=== PATIENT | male | born 1960 | race Caucasian/White ===

== ENCOUNTER 2017-02-09 14:01 | Inpatient (IN) | payer OTHER ==
[2017-02-09 17:13] VITALS: BMI 25.1
--- NOTE | 2017-02-09 17:49 | HP ---
COWS - Scale Resting Pulse: 1= [place] 81-100 Sweatin=Flushed/Facial Moisture Restless Observation: 3= Extraneous Movement Pupil Size: 2= Moderately Dilated Bone or Joint Aches: 2= Severe Diffuse Aches Runny Nose/ Eye Tearin= Runny Nose/Eyes GI Upset > 30mins: 3= Vomiting/Diarrhea Tremor Observation: 2= Slight Tremor Visible Yawning Observation: 2= >3x During Session Anxiety or Irritability: 2=Irritable/Anxious Goose Flesh Skin: 0=Smooth Skin COWS Score: 21 Admission ROS BHS - HPI Chief Complaint: I NEED HELP TO STOP USING HEROIN Allergies/Adverse Reactions: Allergies Allergy/AdvReac Type Severity Reaction Status Date / Time lithium [[place]] Allergy Severe Hives Verified 02/09/17 17:35 History of Present Illness: THIS 56 YEARS OLD MALE WITH HEROIN DEPENDENCE,WITHDRAWAL SYMPTOM,LAST DETOX 2006 [facility] BIPOLAR DISORDER HEPATITIS C TREATED S/P SURGERY OF BACK AND NECK LONGEST PERIOD OF SOBRIETY 1 YEAR Exam Limitations: No Limitations - Ebola screening Have you traveled outside of the country in the last 21 days: No Have you had contact with anyone from an Ebola affected area: No Have you been sick,other than usual withdrawal symptoms: No Do you have a fever: No - Review of Systems Constitutional: Chills, Diaphoresis, Loss of Appetite, Malaise, Night Sweats, Changes in sleep, Weakness, Unintentional Wgt. Loss EENT: reports: Tearing, Nose Congestion Respiratory: reports: Other (BRONCHITIS) Cardiac: reports: Palpitations GI: reports: Diarrhea, Nausea, Vomiting, Abdominal cramping : reports: No Symptoms Reported Musculoskeletal: reports: Back Pain, Muscle Pain, Neck Pain, Joint Stiffness Integumentary: reports: Dryness Neuro: reports: Headache, Tremors Endocrine: reports: No Symptoms Reported Hematology: reports: No Symptoms Reported Psychiatric: reports: Judgement Intact, Mood/Affect Appropiate, Orientated x3 ( BIPOLAR DISORDER), other Patient History - Patient Medical History Hx Anemia: No Hx Asthma: Yes (ON ALBUTEROL INHALER) Hx Chronic Obstructive Pulmonary Disease (COPD): No Hx Cancer: No Hx Cardiac Disorders: No Hx Congestive Heart Failure: No Hx Hypertension: No Hx Hypercholesterolemia: No Hx Pacemaker: No HX Cerebrovascular Accident: No Hx Seizures: No Hx Dementia: No Hx Diabetes: No Hx Gastrointestinal Disorders: No Hx Liver Disease: No Hx Genitourinary Disorders: No Hx Sexually Transmitted Disorders: No Hx Renal Disease (ESRD): No Hx Thyroid Disease: No Hx Human Immunodeficiency Virus (HIV): No (12/31 NEGATIVE) Hx Hepatitis C: Yes (TREATED) Hx Depression: No Hx Suicide Attempt: No Hx Bipolar Disorder: Yes (NO MEDS ) Hx Schizophrenia: No Other Medical History: NO SUICIDAL,NO HOMICIDAL - Patient Surgical History Past Surgical History: Yes Hx Neurologic Surgery: Yes (SUGERY OF NECK) Hx Orthopedic Surgery: Yes (ATHROSOPIC SURGERY FOR ROTATOR CUFF BOTH,ELBOWS) Other Surgical History: BACK SUGERY WITH FUSION - PPD History Previous Implant?: Yes Documented Results: Negative w/o proof Implanted On Prior R Admission?: No PPD to be Administered?: Yes - Smoking Cessation Smoking history: Current every day smoker Have you smoked in the past 12 months: Yes Aproximately how many cigarettes per day: 20 Cigars Per Day: 0 Hx Chewing Tobacco Use: No Initiated information on smoking cessation: Yes 'Breaking Loose' booklet given: 02/09/17 - Substance & Tx. History Hx Alcohol Use: No Hx Substance Use: Yes Substance Use Type: Heroin Hx Substance Use Treatment: Yes (2006 IN [facility]) - Substances Abused Heroin Route: Injection Frequency: Daily Amount used: 20 bags Age of first use: 50 Date of Last Use: 02/09/17 Family Disease History - Family Disease History Family History: Denies Admission Physical Exam S - Vital Signs Vital Signs: Vital Signs - 24 hr 02/09/17 17:11 Temperature 96.0 F L Pulse Rate 90 Respiratory 18 Rate Blood Pressure 142/86 - Physical General Appearance: Yes: Moderate Distress, Tremorous, Irritable, Sweating, Anxious HEENTM: Yes: Hearing grossly Normal, Normal ENT Inspection, Pharynx Normal, Nasal Congestion Respiratory: Yes: Lungs Clear Neck: Yes: Within Normal Limits, Supple, Trachea in good position, Other (SCAR RIGHT NECK) Breast: Yes: Within Normal Limits Cardiology: Yes: Within Normal Limits, Regular Rhythm, Regular Rate, S1, S2 Abdominal: Yes: Normal Bowel Sounds, Non Tender, Flat, Soft, Organomegaly Genitourinary: Yes: Within Normal Limits Back: Yes: Muscle Spasm (SCAR IN LOWER BACK), Surgical Scar Musculoskeletal: Yes: Back pain, Joint Stiffness, Muscle Pain Extremities: Yes: Tremors Neurological: Yes: business insurance agent II-XII NML intact, Fully Oriented, Alert, Motor Strength 5/5 Integumentary: Yes: Dry Lymphatic: Yes: Within Normal Limits - Diagnostic (1) Opioid dependence with withdrawal Current Visit: Yes Status: Acute (2) Bipolar disorder Current Visit: Yes Status: Acute (3) Asthma Current Visit: Yes Status: Acute (4) Low back pain Current Visit: Yes Status: Acute (5) Previous back surgery Current Visit: Yes Status: Acute (6) H/O neck surgery Current Visit: Yes Status: Acute (7) Weight loss Current Visit: Yes Status: Acute (8) Hepatitis C Current Visit: Yes Status: Acute (9) Nicotine dependence Current Visit: Yes Status: Acute Cleared for Admission S - Detox or Rehab [facility] Level of Care: Medically Managed Detox Regimen/Protocol: Methadone [facility] Breath Alcohol Content Breath Alcohol Content: 0 Urine Drug Screen - Results Drug Screen Negative: No Urine Drug Screen Results: OPI-Opiates, OXY-Oxycodone
[2017-02-09] MEDS ORDERED: guaiFENesin/D-METHORPHAN HB 10 ML UNIT-DOSE CUPS PO PRN (18:00)
[2017-02-09] MEDS ORDERED: MAGNESIUM CITRATE 300 ML BOTTLE PO PRN (18:00)
[2017-02-09] MEDS ORDERED: IBUPROFEN 400 MG TABLET (FP) PO PRN (18:00)
[2017-02-09] MEDS ORDERED: MAG HYDROX/AL HYDROX/SIMETH 30 ML UNIT-DOSE CUP PO PRN (18:00)
[2017-02-09] MEDS ORDERED: LOPERAMIDE HCL 2 MG CAPSULE PO PRN (18:00)
[2017-02-09] MEDS ORDERED: ACETAMINOPHEN 325 MG TABLET (FP) PO PRN (18:00)
[2017-02-09] MEDS ORDERED: P-EPHED 60MG/TRIPROLIDI 2.5MG TABLET PO PRN (18:00)
[2017-02-09] MEDS ORDERED: MENTHOL/PHENOL 1 EACH UD MM PRN (18:00)
[2017-02-09] MEDS ORDERED: MAGNESIUM HYDROX 2400MG/30ML ORAL SUSPENSION 30 ML CUP PO PRN (18:00)
[2017-02-09] MEDS ORDERED: diphenhydrAMINE HCL 50 MG CAPSULE PO PRN (18:00)
[2017-02-09] MEDS: diazePAM 5 MG TABLET PO PRN (18:58)
[2017-02-09] MEDS ORDERED: METHADONE HCL 10 MG TABLET (FOR DETOX USE ONLY) PO ONE ×2 (19:00→23:00)
[2017-02-09] MEDS: NICOTINE 21 MG/24 HOURS TOPICAL PATCH TD SCH ×2 (19:03→20:11)
[2017-02-09] MEDS: THIAMINE HCL 100 MG TABLET (FP) PO SCH (22:16)
[2017-02-09] MEDS: cloNIDine HCL 0.1 MG TABLET PO SCH (22:16)
[2017-02-10] MEDS ORDERED: METHADONE HCL 10 MG TABLET (FOR DETOX USE ONLY) PO ONE (10:00)
[2017-02-10] MEDS: PRENATAL VITAMINS W/ FOLIC ACID TABLET (FP) PO SCH (10:23)
[2017-02-10 10:24] LABS: MCH 29.9 pg (25.7-33.7); MCHC 33.1 g/dl (32.0-35.9); MEAN CELL VOLUME 90.3 fl (80-96); MEAN PLT VOLUME 9.6 fl (7.5-11.1); PLATELET COUNT 216 K/MM3 (134-434); RDW 16.9 % (11.9-15.9); WHITE BLOOD COUNT 15.9 K/mm3 (4.0-10.0)
[2017-02-10] MEDS: NICOTINE 21 MG/24 HOURS TOPICAL PATCH TD SCH (10:24)
[2017-02-10] MEDS: diazePAM 5 MG TABLET PO PRN ×3 (10:25→20:06)
[2017-02-10] MEDS: CYCLOBENZAPRINE HCL 10 MG TABLET (FP) PO PRN (10:25)
[2017-02-10] MEDS: cloNIDine HCL 0.1 MG TABLET PO SCH ×2 (10:27→22:08)
[2017-02-10 10:53] LABS: ALBUMIN 4.3 g/dl (3.4-5.0); ALK PHOS 102 U/L (45-117); ANION GAP 10 (8-16); BILIRUBIN,TOTAL 0.3 mg/dL (0.2-1.0); CALCIUM 9.5 mg/dL (8.5-10.1); CO2 27 mmol/L (21-32); GLUCOSE,RANDOM 148 mg/dL (74-106); SGOT/AST 21 U/L (15-37); SGPT/ALT 19 U/L (12-78); TOT PROT 7.6 g/dl (6.4-8.2)
[2017-02-10 10:53] LABS: HIV 1 & 2 AB NEGATIVE; HIV 1 AGp24 NEGATIVE
--- NOTE | 2017-02-10 11:18 | PN ---
BHS COWS - Scale Resting Pulse: 1= [place] 81-100 Sweatin=Flushed/Facial Moisture Restless Observation: 1= Difficult to Sit Still Pupil Size: 1= Pupils >than Normal Bone or Joint Aches: 2= Severe Diffuse Aches Runny Nose/ Eye Tearin= Nasal Congestion GI Upset > 30mins: 1= Stomach Cramp Tremor Observation of Outstretched Hands: 1= Tremor [place], Not Seen Yawning Observation: 0= None Anxiety or Irritability: 2=Irritable/Anxious Goose Flesh Skin: 0=Smooth Skin COWS Score: 12 BHS Progress Note (SOAP) Subjective: interrupted sleep, sweats, shakes , achy Objective: 02/10/17 11:16 Vital Signs Temperature 97.3 F L 02/10/17 11:14 Pulse Rate 72 02/10/17 11:14 Respiratory Rate 18 02/10/17 11:14 Blood Pressure 101/63 02/10/17 11:14 O2 Sat by Pulse Oximetry (%) Laboratory Tests 02/09/17 02/10/17 02/10/17 06:00 06:00 06:00 WBC 15.9 H RBC 4.60 Hgb 13.7 Hct 41.6 MCV 90.3 MCHC 33.1 RDW 16.9 H D Plt Count 216 MPV 9.6 Sodium 139 Potassium 3.7 Chloride 102 Carbon Dioxide 27 Anion Gap 10 BUN 20 H D Creatinine 1.0 Creat Clearance w eGFR > 60 Random Glucose 148 H D Calcium 9.5 Total Bilirubin 0.3 AST 21 D ALT 19 Alkaline Phosphatase 102 Total Protein 7.6 Albumin 4.3 RPR Titer HIV 1&2 Antibody Screen Negative HIV P24 Antigen Negative 02/10/17 06:00 WBC RBC Hgb Hct MCV MCHC RDW Plt Count MPV Sodium Potassium Chloride Carbon Dioxide Anion Gap BUN Creatinine Creat Clearance w eGFR Random Glucose Calcium Total Bilirubin AST ALT Alkaline Phosphatase Total Protein Albumin RPR Titer Nonreactive HIV 1&2 Antibody Screen HIV P24 Antigen pt aox3 ambulating in nad Assessment: 02/10/17 11:17 withdrawal sx's elevated wbc count 02/10/17 11:20 Plan: cont. detox increase fluids motrin prn repeat cbc/esr
[2017-02-10] MEDS: hydrOXYzine PAMOATE 25 MG CAPSULE (FP) PO PRN (14:04)
--- NOTE | 2017-02-10 14:08 | CONSULT ---
[facility] Psychiatric Consult - Data Date of interview: 02/10/17 Admission source: [facility] Identifying data: First admission to [facility] for this 56 y/o male seeking detox treatment for heroin dependence.Patient is ,a father of three,domiciled,unemployed and supported on Social Security benefits. Substance Abuse History: - Smoking Cessation. Smoking history: Current every day smoker. Have you smoked in the past 12 months: Yes. Aproximately how many cigarettes per day: 20. Cigars Per Day: 0. Hx Chewing Tobacco Use: No. Initiated information on smoking cessation: Yes. 'Breaking Loose' booklet given : 02/09/17. - Substance & Tx. History. Hx Alcohol Use: No. Hx Substance Use: Yes. Substance Use Type: Heroin. Hx Substance Use Treatment: Yes (2006 IN [facility]). - Substances Abused. Heroin. Route: Injection. Frequency: Daily. Amount used: 20 bags. Age of first use: 50. Date of Last Use: . Confirmed by patient. Medical History: History of neurosurgery (cervical and lumbar spine) and orthosurgery (arthroscopy for rotator cuffs and elbows). Psychiatric History: Patient admits to [facility] of multiple psychiatric hospitalizations.Known to [facility].Diagnosed with Bipolar Disorder.Prescribed seroquel 200 mg po bid + prozac 40 mg po daily.Non- adherent to medications for " a little over a month." Willing to resume both drugs at this time.Mr Cooper Denies history of suicide attempts. Physical/Sexual Abuse/Trauma History: Patient denies. Additional Comment: Urine Drug Screen Results: OPI-Opiates, OXY-Oxycodone.Noted. Mental Status Exam - Mental Status Exam Alert and Oriented to: Time, Place, Person Cognitive Function: Good Patient Appearance: Unkempt, Disheveled Mood: Anxious, Apprehensive, Hopeful Affect: Appropriate, Normal Range Patient Behavior: Fatigued, Appropriate, Cooperative Speech Pattern: Clear, Appropriate Voice Loudness: Normal Thought Process: Goal Oriented Thought Disorder: Not Present Hallucinations: Denies Suicidal Ideation: Denies Homicidal Ideation: Denies Insight/Judgement: Fair Sleep: Fair Appetite: Good Muscle strength/Tone: Normal Gait/Station: Normal Psychiatric Findings - Problem List ([place] 1, 2,3) (1) Opioid dependence with withdrawal Current Visit: Yes Status: Acute (2) Nicotine dependence Current Visit: Yes Status: Acute (3) Bipolar disorder Current Visit: Yes Status: Chronic (4) Asthma Current Visit: Yes Status: Chronic (5) H/O neck surgery Current Visit: Yes Status: Chronic (6) Hepatitis C Current Visit: Yes Status: Chronic (7) Low back pain Current Visit: Yes Status: Chronic (8) Previous back surgery Current Visit: Yes Status: Chronic - Initial Treatment Plan Initial Treatment Plan: Psychoeducation.Detoxification.Medications : seroquel 200 mg po hs + prozac 20 mg po daily.Side effects/benefits discussed with the patient.He is in agreement with this careplan.Observation.Pharmacy claims reviewed :noted filled scripts for seroquel (200 mg bid) and prozac (40 mg/day) @ [facility] # [id number] (Dr Eugene Poole).No scripts needed at discharge.
[2017-02-10 20:25] LABS: URINE APPEARANCE CLEAR; URINE BILIRUBIN NEGATIVE (NEGATIVE); URINE BLOOD NEGATIVE (NEGATIVE); URINE COLOR YELLOW; URINE GLUCOSE (UA) NEGATIVE (NEGATIVE); URINE KETONE NEGATIVE (NEGATIVE); URINE LEUK ESTERASE NEGATIVE (NEGATIVE); URINE NITRITE NEGATIVE (NEGATIVE); URINE PROTEIN NEGATIVE (NEGATIVE); URINE UROBILINOGEN NEGATIVE E.U./dl (0.2-1.0)
[2017-02-10] MEDS: QUEtiapine FUMARATE 200 MG TABLET PO SCH (22:08)
[2017-02-10] MEDS: THIAMINE HCL 100 MG TABLET (FP) PO SCH (22:08)
[2017-02-11] MEDS: diazePAM 5 MG TABLET PO PRN ×4 (08:43→22:32)
[2017-02-11 09:48] LABS: BASOPHIL 0.7 % (0-2.0); MCH 30.1 pg (25.7-33.7); MCHC 32.9 g/dl (32.0-35.9); MEAN CELL VOLUME 91.5 fl (80-96); MEAN PLT VOLUME 8.8 fl (7.5-11.1); NEUTROPHILS 40.9 % (42.8-82.8); PLATELET COUNT 185 K/MM3 (134-434); RDW 16.4 % (11.9-15.9); WHITE BLOOD COUNT 6.9 K/mm3 (4.0-10.0)
[2017-02-11] MEDS ORDERED: METHADONE HCL 5 MG TABLET (FOR DETOX USE ONLY) PO ONE (10:00)
[2017-02-11] MEDS: FLUoxetine HCL 20 MG CAPSULE (FP) PO SCH (10:22)
[2017-02-11] MEDS: cloNIDine HCL 0.1 MG TABLET PO SCH ×2 (10:22→22:32)
[2017-02-11] MEDS: CYCLOBENZAPRINE HCL 10 MG TABLET (FP) PO PRN ×2 (10:22→22:32)
[2017-02-11] MEDS: hydrOXYzine PAMOATE 25 MG CAPSULE (FP) PO PRN (10:22)
[2017-02-11] MEDS: NICOTINE 21 MG/24 HOURS TOPICAL PATCH TD SCH (10:22)
[2017-02-11] MEDS: PRENATAL VITAMINS W/ FOLIC ACID TABLET (FP) PO SCH (10:22)
--- NOTE | 2017-02-11 10:32 | PN ---
S COWS - Scale Resting Pulse: 1= [place] 81-100 Sweatin= Chills/Flushing Restless Observation: 3= Extraneous Movement Pupil Size: 1= Pupils >than Normal Bone or Joint Aches: 2= Severe Diffuse Aches Runny Nose/ Eye Tearin= Runny Nose/Eyes GI Upset > 30mins: 3= Vomiting/Diarrhea Tremor Observation of Outstretched Hands: 2= Slight Tremor Visible Yawning Observation: 1= 1-2x During Session Anxiety or Irritability: 2=Irritable/Anxious Goose Flesh Skin: 0=Smooth Skin COWS Score: 18 S Progress Note (SOAP) Subjective: ALERT,IRRITABLE,ANXIOUS,TREMOR,PAIN IN THE BODY AND BACK Objective: 02/11/17 10:30 Vital Signs Temperature 98.2 F 02/11/17 10:13 Pulse Rate 97 H 02/11/17 10:13 Respiratory Rate 20 02/11/17 10:13 Blood Pressure 113/71 02/11/17 10:13 O2 Sat by Pulse Oximetry (%) EKG NSR,NORMAL ECG Laboratory Last Values WBC 6.9 K/mm3 (4.0-10.0) D 02/11/17 07:00 RBC 4.49 M/mm3 (4.00-5.60) 02/11/17 07:00 Hgb 13.5 GM/dL (11.7-16.9) 02/11/17 07:00 Hct 41.1 % (35.4-49) 02/11/17 07:00 MCV 91.5 fl (80-96) 02/11/17 07:00 MCHC 32.9 g/dl (32.0-35.9) 02/11/17 07:00 RDW 16.4 % (11.9-15.9) H 02/11/17 07:00 Plt Count 185 K/MM3 (134-434) 02/11/17 07:00 MPV 8.8 fl (7.5-11.1) 02/11/17 07:00 Neutrophils % 40.9 % (42.8-82.8) L 02/11/17 07:00 Lymphocytes % 46.3 % (8-40) H 02/11/17 07:00 Monocytes % 7.1 % (3.8-10.2) 02/11/17 07:00 Eosinophils % 5.0 % (0-4.5) H 02/11/17 07:00 Basophils % 0.7 % (0-2.0) 02/11/17 07:00 Sodium 139 mmol/L (136-145) 02/10/17 06:00 Potassium 3.7 mmol/L (3.5-5.1) 02/10/17 06:00 Chloride 102 mmol/L (98-107) 02/10/17 06:00 Carbon Dioxide 27 mmol/L (21-32) 02/10/17 06:00 Anion Gap 10 (8-16) 02/10/17 06:00 BUN 20 mg/dL (7-18) H D 02/10/17 06:00 Creatinine 1.0 mg/dL (0.7-1.3) 02/10/17 06:00 Creat Clearance w eGFR > 60 (>60) 02/10/17 06:00 Random Glucose 148 mg/dL (74-106) H D 02/10/17 06:00 Calcium 9.5 mg/dL (8.5-10.1) 02/10/17 06:00 Total Bilirubin 0.3 mg/dL (0.2-1.0) 02/10/17 06:00 AST 21 U/L (15-37) D 02/10/17 06:00 ALT 19 U/L (12-78) 02/10/17 06:00 Alkaline Phosphatase 102 U/L (45-117) 02/10/17 06:00 Total Protein 7.6 g/dl (6.4-8.2) 02/10/17 06:00 Albumin 4.3 g/dl (3.4-5.0) 02/10/17 06:00 Urine Color Yellow 02/10/17 19:30 Urine Appearance Clear 02/10/17 19:30 Urine pH 6.0 (5.0-8.0) 02/10/17 19:30 Ur Specific [place] 1.021 (1.001-1.035) 02/10/17 19:30 Urine Protein Negative (NEGATIVE) 02/10/17 19:30 Urine Glucose (UA) Negative (NEGATIVE) 02/10/17 19:30 Urine Ketones Negative (NEGATIVE) 02/10/17 19:30 Urine Blood Negative (NEGATIVE) 02/10/17 19:30 Urine Nitrite Negative (NEGATIVE) 02/10/17 19:30 Urine Bilirubin Negative (NEGATIVE) 02/10/17 19:30 Urine Urobilinogen Negative E.U./dl (0.2-1.0) 02/10/17 19:30 Ur Leukocyte Esterase Negative (NEGATIVE) 02/10/17 19:30 RPR Titer Nonreactive (NONREACTIVE) 02/10/17 06:00 HIV 1&2 Antibody Screen Negative 02/09/17 06:00 HIV P24 Antigen Negative 02/09/17 06:00 Assessment: 02/11/17 10:31 WITHDRAWAL SYMPTOM Plan: CONTINUE DETOX,INITIAL GLUCOSE IS 148,BGM MONITORING
--- NOTE | 2017-02-11 11:58 | EKG ---
Test Reason : Blood Pressure : / mmHG Vent. Rate : 068 BPM Atrial Rate : 068 BPM P-R Int : 142 ms QRS Dur : 090 ms QT Int : 392 ms P-R-T Axes : 023 046 033 degrees QTc Int : 416 ms NORMAL SINUS RHYTHM NON-SPECIFIC INTRA-VENTRICULAR CONDUCTION DELAY NO PREVIOUS ECGS AVAILABLE Confirmed by FLOR MANLEY MD ([id number]) on 02/11/2017 11:57:56 AM Referred By: Confirmed By:FLOR MANLEY MD
[2017-02-11] MEDS: QUEtiapine FUMARATE 200 MG TABLET PO SCH (22:32)
[2017-02-11] MEDS: THIAMINE HCL 100 MG TABLET (FP) PO SCH (22:32)
[2017-02-12] MEDS: hydrOXYzine PAMOATE 25 MG CAPSULE (FP) PO PRN (07:03)
[2017-02-12] MEDS: diazePAM 5 MG TABLET PO PRN ×3 (07:03→15:20)
--- NOTE | 2017-02-12 09:56 | PN ---
S Progress Note (SOAP) Subjective: ALERT,IRRITABLE,ANXIOUS,INTERRUPTED SLEEP Objective: 02/12/17 10:23 Vital Signs Temperature 98.1 F 02/12/17 09:50 Pulse Rate 89 02/12/17 09:50 Respiratory Rate 20 02/12/17 09:50 Blood Pressure 122/81 02/12/17 09:50 O2 Sat by Pulse Oximetry (%) Assessment: 02/12/17 10:23 WITHDRAWAL SYMPTOM Plan: CONTINUE DETOX,DISCHARGE IN AM
[2017-02-12] MEDS ORDERED: METHADONE HCL 5 MG TABLET (FOR DETOX USE ONLY) PO ONE (10:00)
[2017-02-12] MEDS: PRENATAL VITAMINS W/ FOLIC ACID TABLET (FP) PO SCH (10:13)
[2017-02-12] MEDS: cloNIDine HCL 0.1 MG TABLET PO SCH ×2 (10:13→22:15)
[2017-02-12] MEDS: FLUoxetine HCL 20 MG CAPSULE (FP) PO SCH (10:13)
[2017-02-12] MEDS: CYCLOBENZAPRINE HCL 10 MG TABLET (FP) PO PRN (10:13)
[2017-02-12] MEDS: NICOTINE 21 MG/24 HOURS TOPICAL PATCH TD SCH (10:13)
[2017-02-12] MEDS: QUEtiapine FUMARATE 200 MG TABLET PO SCH (22:15)
[2017-02-12] MEDS: THIAMINE HCL 100 MG TABLET (FP) PO SCH (22:15)
[2017-02-13] MEDS ORDERED: METHADONE HCL 10 MG TABLET (FOR DETOX USE ONLY) PO ONE (10:00)
--- NOTE | 2017-02-13 10:31 | PN ---
S Progress Note (SOAP) Subjective: ALERT,NO COMPLAINT Objective: 02/13/17 10:29 Vital Signs Temperature 96.4 F L 02/13/17 05:46 Pulse Rate 68 02/13/17 05:46 Respiratory Rate 18 02/13/17 05:46 Blood Pressure 103/68 02/13/17 05:46 O2 Sat by Pulse Oximetry (%) Assessment: 02/13/17 10:29 PATIENT IS STABLE FOR DISCHARGE,STATE HAS TO SEE HIS CHILDREN IN AM 02/14/17, Plan: DISCHARGE TODAY,FOLLOW UP WITH AFTER CARE PROGRAM ARRANGEMENT
[2017-02-13] MEDS: FLUoxetine HCL 20 MG CAPSULE (FP) PO SCH (10:32)
[2017-02-13] MEDS: PRENATAL VITAMINS W/ FOLIC ACID TABLET (FP) PO SCH (10:32)
[2017-02-13] MEDS: cloNIDine HCL 0.1 MG TABLET PO SCH (10:32)
[2017-02-13] MEDS: hydrOXYzine PAMOATE 25 MG CAPSULE (FP) PO PRN (10:32)
--- NOTE | 2017-02-13 10:37 | DS ---
[facility] Detox Discharge Summary Admission Date: 02/09/17 Discharge Date: 02/13/17 - History Present History: Opioid Dependence Additional Comments: PATIENT IS STABLE FOR DISCHARGE TODAY,FOLLOW UP WITH [facility] ARRANGEMENT, HE HAS TO LEAVE TO SEE HIS CHILDREN IN AM, SEEN BY COUNSELOR Pertinent Past History: ASTHMA HEPATITIS C LOW BACK PAIN NICOTINE DEPENDENCE S/P BACK AND NECK SURGERY BIPOLAR DISORDER - Physical Exam Results Vital Signs: Vital Signs Temperature 96.4 F L 02/13/17 05:46 Pulse Rate 68 02/13/17 05:46 Respiratory Rate 18 02/13/17 05:46 Blood Pressure 103/68 02/13/17 05:46 O2 Sat by Pulse Oximetry (%) - Treatment Hospital Course: Detox Protocol Followed, Detoxed Safely, Responded well, Discharged Condition Good, Rehab Referral Accepted Patient has Accepted a Rehab Referral to: [facility] - Medication Discharge Medications: Ambulatory Orders Fluoxetine HCl [Prozac] 40 mg PO BID 10/03/12 Quetiapine Fumarate [Seroquel -] 200 mg PO BID 02/09/17 - Diagnosis (1) Opioid dependence with withdrawal Current Visit: Yes Status: Acute (2) Bipolar disorder Current Visit: Yes Status: Chronic (3) Asthma Current Visit: Yes Status: Chronic (4) Low back pain Current Visit: Yes Status: Chronic (5) Previous back surgery Current Visit: Yes Status: Chronic (6) H/O neck surgery Current Visit: Yes Status: Chronic (7) Weight loss Current Visit: Yes Status: Acute (8) Hepatitis C Current Visit: Yes Status: Chronic (9) Nicotine dependence Current Visit: Yes Status: Acute - AMA Did Patient Leave Against Medical Advice: No
[2017-02-13 10:39] VITALS: BP 111/71; PULSE 101; TEMP 99.1
[2017-02-14] MEDS ORDERED: METHADONE HCL 5 MG TABLET (FOR DETOX USE ONLY) PO ONE (06:00)
== END 2017-02-13 11:55 | disposition home or self-care (01) | DRG 773 ==
LOC: YASAS 14:01 → Y6N 18:21
PROVIDERS: ADMIT Internal Medicine Addiction Medicine; ATTEND Internal Medicine Addiction Medicine
PROC: HZ2ZZZZ Detoxification Services for Substance Abuse Treatment (ICD-10-PCS; principal; 2017-02-09)
DX: F11.23 Opioid dependence with withdrawal (principal); F17.210 Nicotine dependence, cigarettes, uncomplicated; F31.9 Bipolar disorder, unspecified; J45.909 Unspecified asthma, uncomplicated; M54.5 Low back pain; B18.2 Chronic viral hepatitis C; D72.829 Elevated white blood cell count, unspecified; Z87.898 Personal history of other specified conditions; Z98.890 Other specified postprocedural states
CPT/HCPCS: 36415; 80053; 81003; 85025; 85027; 86593; 87389; 93005; 93010

== ENCOUNTER 2017-06-08 09:42 | Inpatient (IN) | payer OTHER ==
[2017-06-08 10:55] VITALS: BMI 25.8
--- NOTE | 2017-06-08 12:33 | HP ---
Admission [facility] Chief Complaint: I need to go to rehab. Allergies/Adverse Reactions: Allergies Allergy/AdvReac Type Severity Reaction Status Date / Time lithium [[place]] Allergy Severe Hives Verified 06/08/17 11:36 History of Present Illness: Pt is a 56yr old male with a history of heroin dependence. Pt is on a MMTP program last dose was today with 100mg. Pending verification. Pt is now here for rehab for further tx. Exam Limitations: Physical Impairment (left fx heel. pt has a hard cast and uses crutches) - Ebola screening Have you traveled outside of the country in the last 21 days: No Have you had contact with anyone from an Ebola affected area: No Have you been sick,other than usual withdrawal symptoms: No Do you have a fever: No - Review of Systems Constitutional: No Symptoms Reported EENT: reports: No Symptoms Reported Respiratory: reports: No Symptoms reported Cardiac: reports: No Symptoms Reported GI: reports: Constipated, Nausea : reports: No Symptoms Reported Musculoskeletal: reports: Back Pain Integumentary: reports: No Symptoms Reported Neuro: reports: Headache (migraine at times) Endocrine: reports: Excessive Sweating, Flushing, Intolerance to Cold, Intolerance to Heat Hematology: reports: No Symptoms Reported Psychiatric: reports: Judgement Intact, Mood/Affect Appropiate, Orientated x3 Other Systems: Reviewed and Negative Patient History - Patient Medical History Hx Anemia: No Hx Asthma: Yes (ON ALBUTEROL INHALER) Hx Chronic Obstructive Pulmonary Disease (COPD): No Hx Cancer: No Hx Cardiac Disorders: No Hx Congestive Heart Failure: No Hx Hypertension: No Hx Hypercholesterolemia: No Hx Pacemaker: No HX Cerebrovascular Accident: No Hx Seizures: No Hx Dementia: No Hx Diabetes: No Hx Gastrointestinal Disorders: No Hx Liver Disease: No Hx Genitourinary Disorders: No Hx Sexually Transmitted Disorders: No Hx Renal Disease (ESRD): No Hx Thyroid Disease: No Hx Human Immunodeficiency Virus (HIV): No (12/31 NEGATIVE) Hx Hepatitis C: Yes (TREATED) Hx Depression: No Hx Suicide Attempt: No Hx Bipolar Disorder: Yes (NO MEDS ) Hx Schizophrenia: No - Patient Surgical History Past Surgical History: Yes Hx Neurologic Surgery: Yes (SUGERY OF NECK) Hx Orthopedic Surgery: Yes (ATHROSOPIC SURGERY FOR ROTATOR CUFF BOTH,ELBOWS) Other Surgical History: BACK SUGERY WITH FUSION/ recent heel fx three weeks - PPD History Previous Implant?: Yes Documented Results: Negative w/proof Date: 02/11/17 PPD to be Administered?: No - Reproductive History Patient is a Female of Child Bearing Age (11 -55 yrs old): No - Smoking Cessation Smoking history: Current every day smoker Have you smoked in the past 12 months: Yes Aproximately how many cigarettes per day: 20 Cigars Per Day: 0 Hx Chewing Tobacco Use: No Initiated information on smoking cessation: Yes 'Breaking Loose' booklet given: 06/08/17 - Substance & Tx. History Hx Alcohol Use: No Hx Substance Use: Yes Substance Use Type: Cocaine, Heroin Hx Substance Use Treatment: Yes (2 months ago last detox with [facility]) - Substances Abused Heroin Route: Injection Frequency: Daily Amount used: 15 bags Age of first use: 42 Date of Last Use: 05/18/17 percocet Route: Oral Frequency: Daily Amount used: 10 pills (10mg) Age of first use: 32 Date of Last Use: 06/01/17 Family Disease History - Family Disease History Family History: Denies Admission Physical Exam [facility] - Vital Signs Vital Signs: Vital Signs - 24 hr 06/08/17 10:49 Temperature 96.4 F L Pulse Rate 100 H Respiratory 20 Rate Blood Pressure 107/77 - Physical General Appearance: Yes: Appropriately Dressed, Mild Distress, Anxious HEENTM: Yes: Normal Voice Respiratory: Yes: Lungs Clear, Normal Breath Sounds, No Respiratory Distress Neck: Yes: Within Normal Limits Breast: Yes: Within Normal Limits Cardiology: Yes: Regular Rhythm, Regular Rate, S1, S2 Abdominal: Yes: Normal Bowel Sounds, Non Tender, Soft Genitourinary: Yes: Within Normal Limits Back: Yes: Normal Inspection Musculoskeletal: Yes: Back pain Extremities: Yes: Normal Capillary Refill, Normal Inspection Neurological: Yes: Fully Oriented, Alert, Normal Response Integumentary: Yes: Normal Color Lymphatic: Yes: Within Normal Limits - Diagnostic (1) Nicotine dependence Current Visit: Yes Status: Chronic Qualifiers: Nicotine product type: cigarettes Substance use status: uncomplicated Qualified Code(s): F17.210 - Nicotine dependence, cigarettes, uncomplicated (2) Asthma Current Visit: Yes Status: Chronic Qualifiers: Asthma severity: mild intermittent (3) Low back pain Current Visit: No Status: Chronic Qualifiers: Chronicity: chronic Sciatica presence: unspecified whether sciatica present (4) Methadone maintenance therapy patient Current Visit: Yes Status: Chronic Comment: last dose taken today with 100mg, pending verification Cleared for Admission [facility] - Detox or Rehab [facility] Level of Care: Medically Managed Claeared for Rehab Admission: Yes [facility] Breath Alcohol Content Breath Alcohol Content: 0 Urine Drug Screen - Results Drug Screen Negative: No Urine Drug Screen Results: MTD-Methadone
[2017-06-08] MEDS ORDERED: diphenhydrAMINE HCL 50 MG CAPSULE PO PRN (13:10)
[2017-06-08] MEDS ORDERED: LOPERAMIDE HCL 2 MG CAPSULE PO PRN (13:10)
[2017-06-08] MEDS ORDERED: IBUPROFEN 400 MG TABLET (FP) PO PRN (13:10)
[2017-06-08] MEDS ORDERED: MAGNESIUM CITRATE 300 ML BOTTLE PO PRN (13:10)
[2017-06-08] MEDS ORDERED: guaiFENesin/D-METHORPHAN HB 10 ML UNIT-DOSE CUPS PO PRN (13:10)
[2017-06-08] MEDS ORDERED: NICOTINE POLACRILEX 4 MG GUM BUC PRN (13:10)
[2017-06-08] MEDS ORDERED: MENTHOL/PHENOL 1 EACH UD MM PRN (13:10)
[2017-06-08] MEDS ORDERED: MAG HYDROX/AL HYDROX/SIMETH 30 ML UNIT-DOSE CUP PO PRN (13:10)
[2017-06-08] MEDS ORDERED: P-EPHED 60MG/TRIPROLIDI 2.5MG TABLET PO PRN (13:10)
[2017-06-08 16:19] LABS: ALBUMIN 4.4 g/dl (3.4-5.0); ANION GAP 9 (8-16); CALCIUM 9.5 mg/dL (8.5-10.1); CO2 25 mmol/L (21-32); GLUCOSE,RANDOM 84 mg/dL (74-106); MCH 30.9 pg (25.7-33.7); MCHC 33.3 g/dl (32.0-35.9); MEAN CELL VOLUME 92.6 fl (80-96); MEAN PLT VOLUME 9.4 fl (7.5-11.1); PLATELET COUNT 260 K/MM3 (134-434); RDW 14.9 % (11.9-15.9); WHITE BLOOD COUNT 8.5 K/mm3 (4.0-10.0)
[2017-06-08 16:23] LABS: ALK PHOS 156 U/L (45-117); BILIRUBIN,TOTAL 0.7 mg/dL (0.2-1.0); CREATININE 1.1 mg/dL (0.7-1.3); SGOT/AST 17 U/L (15-37); SGPT/ALT 15 U/L (12-78); TOT PROT 7.2 g/dl (6.4-8.2)
[2017-06-08 19:34] LABS: URINE APPEARANCE CLEAR; URINE BILIRUBIN NEGATIVE (NEGATIVE); URINE BLOOD NEGATIVE (NEGATIVE); URINE COLOR LTYELLOW; URINE GLUCOSE (UA) NEGATIVE (NEGATIVE); URINE KETONE NEGATIVE (NEGATIVE); URINE LEUK ESTERASE TRACE (NEGATIVE); URINE NITRITE NEGATIVE (NEGATIVE); URINE PROTEIN NEGATIVE (NEGATIVE); URINE UROBILINOGEN NEGATIVE mg/dL (0.2-1.0)
[2017-06-08] MEDS: THIAMINE HCL 100 MG TABLET (FP) PO SCH (21:48)
[2017-06-08 21:57] LABS: URINE BACTERIA RARE /hpf (NONE SEEN); URINE MUCUS RARE; URINE RBC 1 /hpf (0-3); URINE WBC 5 /hpf (3-5)
[2017-06-09] MEDS ORDERED: METHADONE HCL 10 MG TABLET PO ONE (08:09)
[2017-06-09] MEDS ORDERED: METHADONE 80 MG, METHADONE 20 MG PO ONE (08:30)
[2017-06-09] MEDS ORDERED: METHADONE HCL 40 MG DISPERSABLE TABLET ONE (08:54)
[2017-06-09] MEDS ORDERED: METHADONE HCL 10 MG TABLET ONE (08:54)
[2017-06-09] MEDS: ACETAMINOPHEN 325 MG TABLET (FP) PO PRN ×2 (08:58→14:24)
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
[2017-06-09] MEDS: NICOTINE 21 MG/24 HOURS TOPICAL PATCH TD SCH (10:12)
[2017-06-09] MEDS: PRENATAL VITAMINS W/ FOLIC ACID TABLET (FP) PO SCH (10:13)
[2017-06-09 10:37] LABS: HIV 1 & 2 AB NEGATIVE; HIV 1 AGp24 NEGATIVE
[2017-06-09] MEDS ORDERED: QUEtiapine FUMARATE 200 MG TABLET PO SCH (11:30)
--- NOTE | 2017-06-09 12:01 | EKG ---
Test Reason : Blood Pressure : / mmHG Vent. Rate : 074 BPM Atrial Rate : 074 BPM P-R Int : 154 ms QRS Dur : 088 ms QT Int : 416 ms P-R-T Axes : 039 052 045 degrees QTc Int : 461 ms NORMAL SINUS RHYTHM WITH SINUS ARRHYTHMIA NORMAL ECG WHEN COMPARED WITH ECG OF 09-FEB-2017 18:03, NO SIGNIFICANT CHANGE WAS FOUND Confirmed by RODRIGO FLORES MD ([id number]) on 06/09/2017 12:00:42 PM Referred By: Confirmed By:RODRIGO FLORES MD
[2017-06-09] MEDS: FLUoxetine HCL 20 MG CAPSULE (FP) PO SCH (12:41)
[2017-06-09] MEDS: ALBUTEROL SO4 6.7 GM HFA INHALER IH PRN (12:42)
[2017-06-09] MEDS: QUEtiapine FUMARATE 100 MG TABLET (FP) PO SCH (21:12)
[2017-06-09] MEDS: THIAMINE HCL 100 MG TABLET (FP) PO SCH (21:12)
[2017-06-10] MEDS ORDERED: METHADONE HCL 10 MG TABLET ONE (04:20)
[2017-06-10] MEDS ORDERED: METHADONE HCL 40 MG DISPERSABLE TABLET ONE (04:20)
[2017-06-10] MEDS ORDERED: METHADONE HCL 40 MG DISPERSABLE TABLET PO SCH (06:00)
[2017-06-10] MEDS: METHADONE 80 MG, METHADONE 20 MG PO SCH (06:09)
[2017-06-10] MEDS: FLUoxetine HCL 20 MG CAPSULE (FP) PO SCH (10:08)
[2017-06-10] MEDS: PRENATAL VITAMINS W/ FOLIC ACID TABLET (FP) PO SCH (10:08)
[2017-06-10] MEDS: QUEtiapine FUMARATE 100 MG TABLET (FP) PO SCH ×2 (10:08→21:58)
[2017-06-10] MEDS: NICOTINE 21 MG/24 HOURS TOPICAL PATCH TD SCH (10:10)
[2017-06-10] MEDS: ALBUTEROL SO4 6.7 GM HFA INHALER IH PRN ×2 (10:11→21:58)
[2017-06-10] MEDS: THIAMINE HCL 100 MG TABLET (FP) PO SCH (21:58)
[2017-06-11] MEDS ORDERED: METHADONE HCL 10 MG TABLET ONE (05:34)
[2017-06-11] MEDS ORDERED: METHADONE HCL 40 MG DISPERSABLE TABLET ONE (05:34)
[2017-06-11] MEDS: METHADONE 80 MG, METHADONE 20 MG PO SCH (06:17)
[2017-06-11] MEDS: ALBUTEROL SO4 6.7 GM HFA INHALER IH PRN (09:37)
[2017-06-11] MEDS: NICOTINE 21 MG/24 HOURS TOPICAL PATCH TD SCH (09:38)
[2017-06-11] MEDS: QUEtiapine FUMARATE 100 MG TABLET (FP) PO SCH ×2 (09:38→21:03)
[2017-06-11] MEDS: FLUoxetine HCL 20 MG CAPSULE (FP) PO SCH (09:38)
[2017-06-11] MEDS: PRENATAL VITAMINS W/ FOLIC ACID TABLET (FP) PO SCH (09:38)
[2017-06-11] MEDS: THIAMINE HCL 100 MG TABLET (FP) PO SCH (21:03)
[2017-06-12] MEDS ORDERED: METHADONE HCL 40 MG DISPERSABLE TABLET ONE (05:15)
[2017-06-12] MEDS ORDERED: METHADONE HCL 10 MG TABLET ONE (05:15)
[2017-06-12] MEDS: METHADONE 80 MG, METHADONE 20 MG PO SCH (06:01)
[2017-06-12] MEDS: NICOTINE 21 MG/24 HOURS TOPICAL PATCH TD SCH (09:31)
[2017-06-12] MEDS: QUEtiapine FUMARATE 100 MG TABLET (FP) PO SCH ×2 (09:31→21:45)
[2017-06-12] MEDS: FLUoxetine HCL 20 MG CAPSULE (FP) PO SCH (09:31)
[2017-06-12] MEDS: PRENATAL VITAMINS W/ FOLIC ACID TABLET (FP) PO SCH (09:31)
[2017-06-12] MEDS: THIAMINE HCL 100 MG TABLET (FP) PO SCH (21:45)
[2017-06-12] MEDS ORDERED: PT OWN MED DRAWER 7, Y5N ONE (21:48)
[2017-06-12] MEDS: ALBUTEROL SO4 6.7 GM HFA INHALER IH PRN (21:49)
[2017-06-13] MEDS ORDERED: METHADONE HCL 10 MG TABLET ONE (04:00)
[2017-06-13] MEDS ORDERED: METHADONE HCL 40 MG DISPERSABLE TABLET ONE (04:00)
[2017-06-13] MEDS: METHADONE 80 MG, METHADONE 20 MG PO SCH (06:39)
[2017-06-13] MEDS: NICOTINE 21 MG/24 HOURS TOPICAL PATCH TD SCH (09:29)
[2017-06-13] MEDS: FLUoxetine HCL 20 MG CAPSULE (FP) PO SCH (09:30)
[2017-06-13] MEDS: PRENATAL VITAMINS W/ FOLIC ACID TABLET (FP) PO SCH (09:30)
[2017-06-13] MEDS: QUEtiapine FUMARATE 100 MG TABLET (FP) PO SCH ×2 (09:30→21:10)
[2017-06-13] MEDS: ALBUTEROL SO4 6.7 GM HFA INHALER IH PRN (09:31)
[2017-06-13] MEDS: THIAMINE HCL 100 MG TABLET (FP) PO SCH (21:10)
[2017-06-14] MEDS ORDERED: METHADONE HCL 40 MG DISPERSABLE TABLET ONE (04:39)
[2017-06-14] MEDS ORDERED: METHADONE HCL 10 MG TABLET ONE (04:39)
[2017-06-14] MEDS: METHADONE 80 MG, METHADONE 20 MG PO SCH (06:19)
[2017-06-14] MEDS: PRENATAL VITAMINS W/ FOLIC ACID TABLET (FP) PO SCH (09:44)
[2017-06-14] MEDS: QUEtiapine FUMARATE 100 MG TABLET (FP) PO SCH ×2 (09:44→21:16)
[2017-06-14] MEDS: FLUoxetine HCL 20 MG CAPSULE (FP) PO SCH (09:44)
[2017-06-14] MEDS: NICOTINE 21 MG/24 HOURS TOPICAL PATCH TD SCH (09:45)
[2017-06-14] MEDS: THIAMINE HCL 100 MG TABLET (FP) PO SCH (21:16)
[2017-06-14] MEDS: ALBUTEROL SO4 6.7 GM HFA INHALER IH PRN (21:17)
[2017-06-15] MEDS ORDERED: METHADONE HCL 10 MG TABLET ONE (04:05)
[2017-06-15] MEDS ORDERED: METHADONE HCL 40 MG DISPERSABLE TABLET ONE (04:05)
[2017-06-15] MEDS: METHADONE 80 MG, METHADONE 20 MG PO SCH (06:12)
[2017-06-15] MEDS: FLUoxetine HCL 20 MG CAPSULE (FP) PO SCH (09:30)
[2017-06-15] MEDS: QUEtiapine FUMARATE 100 MG TABLET (FP) PO SCH ×2 (09:30→21:00)
[2017-06-15] MEDS: PRENATAL VITAMINS W/ FOLIC ACID TABLET (FP) PO SCH (09:30)
[2017-06-15] MEDS: NICOTINE 21 MG/24 HOURS TOPICAL PATCH TD SCH (09:30)
[2017-06-15] MEDS ORDERED: PT OWN MED DRAWER 7, Y5N ONE (09:32)
[2017-06-15] MEDS: ALBUTEROL SO4 6.7 GM HFA INHALER IH PRN ×2 (09:32→21:01)
[2017-06-15] MEDS: MAGNESIUM HYDROX 2400MG/30ML ORAL SUSPENSION 30 ML CUP PO PRN (11:38)
[2017-06-15] MEDS: THIAMINE HCL 100 MG TABLET (FP) PO SCH (21:00)
[2017-06-16] MEDS ORDERED: METHADONE HCL 10 MG TABLET ONE (05:01)
[2017-06-16] MEDS ORDERED: METHADONE HCL 40 MG DISPERSABLE TABLET ONE (05:01)
[2017-06-16] MEDS: METHADONE 80 MG, METHADONE 20 MG PO SCH (06:22)
[2017-06-16] MEDS: NICOTINE 21 MG/24 HOURS TOPICAL PATCH TD SCH (09:31)
[2017-06-16] MEDS: FLUoxetine HCL 20 MG CAPSULE (FP) PO SCH (09:31)
[2017-06-16] MEDS: QUEtiapine FUMARATE 100 MG TABLET (FP) PO SCH ×2 (09:31→21:15)
[2017-06-16] MEDS: PRENATAL VITAMINS W/ FOLIC ACID TABLET (FP) PO SCH (09:33)
[2017-06-16] MEDS: ACETAMINOPHEN 325 MG TABLET (FP) PO PRN (09:33)
[2017-06-16] MEDS: MAGNESIUM HYDROX 2400MG/30ML ORAL SUSPENSION 30 ML CUP PO PRN (09:34)
[2017-06-16] MEDS: ALBUTEROL SO4 6.7 GM HFA INHALER IH PRN (21:15)
[2017-06-16] MEDS: THIAMINE HCL 100 MG TABLET (FP) PO SCH (21:15)
[2017-06-17] MEDS ORDERED: METHADONE HCL 40 MG DISPERSABLE TABLET ONE (04:33)
[2017-06-17] MEDS ORDERED: METHADONE HCL 10 MG TABLET ONE (04:33)
[2017-06-17] MEDS: METHADONE 80 MG, METHADONE 20 MG PO SCH (05:04)
[2017-06-17] MEDS: PRENATAL VITAMINS W/ FOLIC ACID TABLET (FP) PO SCH (09:27)
[2017-06-17] MEDS: FLUoxetine HCL 20 MG CAPSULE (FP) PO SCH (09:28)
[2017-06-17] MEDS: QUEtiapine FUMARATE 100 MG TABLET (FP) PO SCH ×2 (09:28→21:03)
[2017-06-17] MEDS: NICOTINE 21 MG/24 HOURS TOPICAL PATCH TD SCH (09:28)
[2017-06-17] MEDS: ALBUTEROL SO4 6.7 GM HFA INHALER IH PRN ×2 (09:29→21:03)
[2017-06-17] MEDS: THIAMINE HCL 100 MG TABLET (FP) PO SCH (21:03)
[2017-06-18] MEDS ORDERED: METHADONE HCL 10 MG TABLET ONE (03:50)
[2017-06-18] MEDS ORDERED: METHADONE HCL 40 MG DISPERSABLE TABLET ONE (03:50)
[2017-06-18] MEDS: METHADONE 80 MG, METHADONE 20 MG PO SCH (06:03)
[2017-06-18] MEDS: ALBUTEROL SO4 6.7 GM HFA INHALER IH PRN ×2 (06:03→21:14)
[2017-06-18] MEDS: FLUoxetine HCL 20 MG CAPSULE (FP) PO SCH (09:37)
[2017-06-18] MEDS: PRENATAL VITAMINS W/ FOLIC ACID TABLET (FP) PO SCH (09:37)
[2017-06-18] MEDS: MAGNESIUM HYDROX 2400MG/30ML ORAL SUSPENSION 30 ML CUP PO PRN (09:37)
[2017-06-18] MEDS: QUEtiapine FUMARATE 100 MG TABLET (FP) PO SCH ×2 (09:37→21:13)
[2017-06-18] MEDS: NICOTINE 21 MG/24 HOURS TOPICAL PATCH TD SCH (10:27)
[2017-06-18] MEDS: THIAMINE HCL 100 MG TABLET (FP) PO SCH (21:13)
[2017-06-19] MEDS ORDERED: METHADONE HCL 40 MG DISPERSABLE TABLET ONE (03:50)
[2017-06-19] MEDS ORDERED: METHADONE HCL 10 MG TABLET ONE (03:50)
[2017-06-19] MEDS: METHADONE 80 MG, METHADONE 20 MG PO SCH (05:59)
[2017-06-19] MEDS: FLUoxetine HCL 20 MG CAPSULE (FP) PO SCH (09:25)
[2017-06-19] MEDS: QUEtiapine FUMARATE 100 MG TABLET (FP) PO SCH ×2 (09:26→21:03)
[2017-06-19] MEDS: PRENATAL VITAMINS W/ FOLIC ACID TABLET (FP) PO SCH (09:26)
[2017-06-19] MEDS: NICOTINE 21 MG/24 HOURS TOPICAL PATCH TD SCH (09:26)
[2017-06-19] MEDS: ALBUTEROL SO4 6.7 GM HFA INHALER IH PRN ×2 (09:28→21:04)
[2017-06-19] MEDS: THIAMINE HCL 100 MG TABLET (FP) PO SCH (21:03)
[2017-06-19] MEDS: MAGNESIUM HYDROX 2400MG/30ML ORAL SUSPENSION 30 ML CUP PO PRN (21:03)
[2017-06-20] MEDS ORDERED: METHADONE HCL 10 MG TABLET ONE (05:12)
[2017-06-20] MEDS ORDERED: METHADONE HCL 40 MG DISPERSABLE TABLET ONE (05:12)
[2017-06-20] MEDS: METHADONE 80 MG, METHADONE 20 MG PO SCH (05:54)
[2017-06-20] MEDS: QUEtiapine FUMARATE 100 MG TABLET (FP) PO SCH ×2 (09:31→21:02)
[2017-06-20] MEDS: NICOTINE 21 MG/24 HOURS TOPICAL PATCH TD SCH (09:31)
[2017-06-20] MEDS: FLUoxetine HCL 20 MG CAPSULE (FP) PO SCH (09:31)
[2017-06-20] MEDS: PRENATAL VITAMINS W/ FOLIC ACID TABLET (FP) PO SCH (09:31)
[2017-06-20] MEDS: ALBUTEROL SO4 6.7 GM HFA INHALER IH PRN ×2 (09:31→21:03)
[2017-06-20] MEDS: THIAMINE HCL 100 MG TABLET (FP) PO SCH (21:02)
[2017-06-21] MEDS ORDERED: METHADONE HCL 40 MG DISPERSABLE TABLET ONE (03:52)
[2017-06-21] MEDS ORDERED: METHADONE HCL 10 MG TABLET ONE (03:52)
[2017-06-21] MEDS: METHADONE 80 MG, METHADONE 20 MG PO SCH (06:04)
[2017-06-21] MEDS: ALBUTEROL SO4 6.7 GM HFA INHALER IH PRN ×2 (09:30→21:03)
[2017-06-21] MEDS: FLUoxetine HCL 20 MG CAPSULE (FP) PO SCH (09:31)
[2017-06-21] MEDS: MAGNESIUM HYDROX 2400MG/30ML ORAL SUSPENSION 30 ML CUP PO PRN (09:31)
[2017-06-21] MEDS: PRENATAL VITAMINS W/ FOLIC ACID TABLET (FP) PO SCH (09:31)
[2017-06-21] MEDS: NICOTINE 21 MG/24 HOURS TOPICAL PATCH TD SCH (09:32)
[2017-06-21] MEDS: QUEtiapine FUMARATE 100 MG TABLET (FP) PO SCH ×2 (09:32→21:03)
[2017-06-21] MEDS: THIAMINE HCL 100 MG TABLET (FP) PO SCH (21:03)
[2017-06-22] MEDS ORDERED: METHADONE HCL 10 MG TABLET ONE (05:55)
[2017-06-22] MEDS ORDERED: METHADONE HCL 40 MG DISPERSABLE TABLET ONE (05:56)
[2017-06-22] MEDS: METHADONE 80 MG, METHADONE 20 MG PO SCH (06:07)
[2017-06-22] MEDS: PRENATAL VITAMINS W/ FOLIC ACID TABLET (FP) PO SCH (09:48)
[2017-06-22] MEDS: FLUoxetine HCL 20 MG CAPSULE (FP) PO SCH (09:48)
[2017-06-22] MEDS: QUEtiapine FUMARATE 100 MG TABLET (FP) PO SCH ×2 (09:48→21:07)
[2017-06-22] MEDS: NICOTINE 21 MG/24 HOURS TOPICAL PATCH TD SCH (09:49)
[2017-06-22] MEDS: MAGNESIUM HYDROX 2400MG/30ML ORAL SUSPENSION 30 ML CUP PO PRN (09:50)
[2017-06-22] MEDS: ALBUTEROL SO4 6.7 GM HFA INHALER IH PRN ×2 (09:51→21:07)
[2017-06-22] MEDS: hydrOXYzine PAMOATE 50 MG CAPSULE (FP) PO PRN (15:59)
[2017-06-22] MEDS: THIAMINE HCL 100 MG TABLET (FP) PO SCH (21:07)
[2017-06-23] MEDS ORDERED: METHADONE HCL 40 MG DISPERSABLE TABLET ONE (03:55)
[2017-06-23] MEDS ORDERED: METHADONE HCL 10 MG TABLET ONE (03:55)
[2017-06-23] MEDS: METHADONE 80 MG, METHADONE 20 MG PO SCH (05:58)
[2017-06-23 06:40] VITALS: TEMP 98.3
[2017-06-23] MEDS: FLUoxetine HCL 20 MG CAPSULE (FP) PO SCH (09:46)
[2017-06-23] MEDS: QUEtiapine FUMARATE 100 MG TABLET (FP) PO SCH ×2 (09:46→21:14)
[2017-06-23] MEDS: NICOTINE 21 MG/24 HOURS TOPICAL PATCH TD SCH (09:46)
[2017-06-23] MEDS: PRENATAL VITAMINS W/ FOLIC ACID TABLET (FP) PO SCH (09:46)
[2017-06-23] MEDS: hydrOXYzine PAMOATE 50 MG CAPSULE (FP) PO PRN (09:46)
[2017-06-23] MEDS: MAGNESIUM HYDROX 2400MG/30ML ORAL SUSPENSION 30 ML CUP PO PRN (09:47)
--- NOTE | 2017-06-23 11:48 | PN ---
Psychiatric Progress Note Vital Signs: Vital Signs Period Temp Pulse Resp BP Sys/Sandoval Pulse Ox Last 24 Hr 98.3 F 100 18-20 106/74 Date of Session: 06/23/17 Chief Complaint:: Discharge Note HPI: Patient addressing Opoid Dependence comorbid with Opoid Dependence, Nicotine Dependence and Bipolar Disorder ROS: Asthma, Hep C, LBP were medically managed Current Medications: Active Medications Generic Name Dose Route Start Last Admin Trade Name Freq PRN Reason Stop Dose Admin Acetaminophen 650 mg 06/08/17 13:10 06/16/17 09:33 Tylenol - PO 650 mg Q4H PRN Administration PAIN Al Hydroxide/Mg Hydroxide 30 ml 06/08/17 13:10 Mylanta Oral Suspension - PO Q6H PRN DYSPEPSIA Albuterol Sulfate 2 puff 06/08/17 13:32 06/22/17 21:07 Ventolin Hfa Inhaler - IH 2 puff Q4H PRN Administration SHORT OF BREATH/WHEEZING Diphenhydramine HCl 50 mg 06/08/17 13:10 06/08/17 21:48 Benadryl - PO 50 mg HSMR1 PRN Administration INSOMNIA Eucalyptus/Menthol/Phenol/Sorbitol 1 each 06/08/17 13:10 Cepastat Lozenge - MM Q4H PRN SORE THROAT Fluoxetine HCl 40 mg 06/09/17 11:30 06/23/17 09:46 Prozac - PO 40 mg DAILY JENNIFER Administration Guaifenesin 10 ml 06/08/17 13:10 Robitussin Dm - PO Q6H PRN COUGH Hydroxyzine Pamoate 50 mg 06/08/17 13:10 06/23/17 09:46 Vistaril - PO 50 mg Q4H PRN Administration AGITATION Ibuprofen 400 mg 06/08/17 13:10 Motrin - PO Q6H PRN SEVERE PAIN Loperamide HCl 4 mg 06/08/17 13:10 Imodium - PO Q6H PRN DIARRHEA Magnesium Citrate 300 ml 06/08/17 13:10 Citroma - PO Q48H PRN CONSTIPATION Magnesium Hydroxide 30 ml 06/08/17 13:10 06/23/17 09:47 Milk Of Magnesia - PO 30 ml DAILY PRN Administration CONSTIPATION Methadone HCl 80 mg/ Methadone 100 mg 06/22/17 06:00 06/23/17 05:58 HCl 20 mg PO 06/28/17 05:59 100 mg DAILY@0600 JENNIFER Administration Nicotine 21 mg 06/09/17 10:00 06/23/17 09:46 Nicoderm Patch - TD 21 mg DAILY JENNIFER Administration Nicotine Polacrilex 4 mg 06/08/17 13:10 Nicorette Gum - BUC Q2H PRN NICOTINE REPLACEMENT RX Multivit/Folic Acid/Iron 1 tab 06/09/17 10:00 06/23/17 09:46 Vitamins (Sjr) - PO 1 tab DAILY JENNIFER Administration Pseudoephedrine/Triprolidine 1 combo 06/08/17 13:10 Actifed - PO TID PRN NASAL CONGESTION Quetiapine Fumarate 100 mg 06/09/17 22:00 06/23/17 09:46 Seroquel - PO 100 mg BID JENNIFER Administration Thiamine HCl 100 mg 06/08/17 22:00 06/22/17 21:07 Vitamin B1 - PO 100 mg HS JENNIFER Administration Current Side Effect: No Lab tests ordered: Yes Lab tests reviewed: Yes Provider note:: Patient will complete this program on 06/24/17. He has met his treatment goals and will continue to address his issues in outpatient program @ [facility]. 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 He responded well to Prozac 40 mg po daily & Seroquel 100 mg po BID. Scripts for 30 days supply of these medications will be electronically transmitted to [facility] at [address] [place] [address]. He is stable for discharge on 06/24/17 Total face to face time:: 35 Mental Status Exam - Mental Status Exam Alert and Oriented to: Time, Place, Person Cognitive Function: Fair Patient Appearance: Well Groomed Mood: Hopeful, Euthymic Affect: Appropriate Patient Behavior: Cooperative Speech Pattern: Clear Voice Loudness: Normal Thought Process: Intact, Goal Oriented Thought Disorder: Not Present Hallucinations: Denies Suicidal Ideation: Denies Homicidal Ideation: Denies Insight/Judgement: Fair Sleep: Fair Appetite: Good Muscle strength/Tone: Normal Gait/Station: Normal Psychiatric Treatment Plan - Problem List (1) Opioid dependence Current Visit: Yes (2) Opioid dependence on agonist therapy Current Visit: Yes (3) Nicotine dependence Current Visit: Yes Qualifiers: Nicotine product type: cigarettes Substance use status: uncomplicated Qualified Code(s): F17.210 - Nicotine dependence, cigarettes, uncomplicated (4) Bipolar disorder Current Visit: No (5) Asthma Current Visit: Yes Qualifiers: Asthma severity: mild intermittent (6) Hepatitis C Current Visit: No (7) Low back pain Current Visit: No Qualifiers: Chronicity: chronic Sciatica presence: unspecified whether sciatica present (8) H/O neck surgery Current Visit: No (9) Previous back surgery Current Visit: No Initial treatment plan: Patient will be discharged tomorrow and referred to [facility] for [facility] treatment
[2017-06-23] MEDS: DOCUSATE SODIUM 100 MG CAPSULE (FP) PO SCH ×2 (14:44→21:14)
[2017-06-23] MEDS: THIAMINE HCL 100 MG TABLET (FP) PO SCH (21:14)
[2017-06-24] MEDS ORDERED: METHADONE HCL 40 MG DISPERSABLE TABLET ONE (04:13)
[2017-06-24] MEDS ORDERED: METHADONE HCL 10 MG TABLET ONE (04:13)
[2017-06-24] MEDS: METHADONE 80 MG, METHADONE 20 MG PO SCH (06:29)
[2017-06-24] MEDS: DOCUSATE SODIUM 100 MG CAPSULE (FP) PO SCH (06:29)
[2017-06-24 07:24] VITALS: BP 124/86; PULSE 84
[2017-06-24] MEDS: FLUoxetine HCL 20 MG CAPSULE (FP) PO SCH (09:58)
[2017-06-24] MEDS: QUEtiapine FUMARATE 100 MG TABLET (FP) PO SCH (09:58)
[2017-06-24] MEDS: PRENATAL VITAMINS W/ FOLIC ACID TABLET (FP) PO SCH (09:58)
[2017-06-24] MEDS: NICOTINE 21 MG/24 HOURS TOPICAL PATCH TD SCH (09:59)
[2017-06-24] MEDS: ALBUTEROL SO4 6.7 GM HFA INHALER IH PRN (09:59)
== END 2017-06-24 10:21 | disposition home or self-care (01) | DRG 772 ==
LOC: YASAS 09:42 → Y3W 13:46
PROVIDERS: ADMIT Psychiatry & Neurology Psychiatry; ATTEND Psychiatry & Neurology Psychiatry
PROC: HZ42ZZZ Group Counseling for Substance Abuse Treatment, Cognitive-Behavioral (ICD-10-PCS; principal; 2017-06-08)
DX: F11.20 Opioid dependence, uncomplicated (principal); F17.210 Nicotine dependence, cigarettes, uncomplicated; F31.9 Bipolar disorder, unspecified; J45.909 Unspecified asthma, uncomplicated; M45.4 Ankylosing spondylitis of thoracic region; G89.29 Other chronic pain; Z98.890 Other specified postprocedural states; B18.2 Chronic viral hepatitis C; Z88.8 Allergy status to other drugs, medicaments and biological substances
CPT/HCPCS: 36415; 80053; 81003; 81015; 85027; 86593; 87389; 93005; 93010

== ENCOUNTER 2017-12-15 08:39 | Day surgery (SDC) | payer OTHER ==
[2017-12-14 15:08] VITALS: BMI 28.7
[2017-12-15 09:12] VITALS: TEMP 97.9
[2017-12-15] MEDS ORDERED: PROPOFOL 20 ML ONE ×2 (10:14)
--- NOTE | 2017-12-15 11:13 | PROC ---
Endoscopy Procedure Endoscopy procedure completed. Please see scanned procedure report.
[2017-12-15 11:59] VITALS: BP 107/69; PULSE 89
== END 2017-12-15 12:18 | disposition home or self-care (01) ==
LOC: JASU-ENDO 08:39
PROVIDERS: ATTEND Internal Medicine Gastroenterology
PROC: 0DJD8ZZ Inspection of Lower Intestinal Tract, Via Natural or Artificial Opening Endoscopic (ICD-10-PCS; principal; 2017-12-15 09:45)
DX: Z12.11 Encounter for screening for malignant neoplasm of colon (principal)

== ENCOUNTER 2019-11-21 15:50 | Emergency (ER) | payer OTHER ==
[2019-11-21 16:08] VITALS: BP 130/78; PULSE 109; TEMP 98.3; BMI 28.7
--- NOTE | 2019-11-21 16:25 | PDOC ---
History of Present Illness <Car Renee - Last Filed: 11/21/19 17:26> <Rhonda Turk - Last Filed: 11/23/19 01:24> - General Chief Complaint: Cold Symptoms Stated Complaint: COUGH Time Seen by Provider: 11/21/19 16:14 Past History <Car Renee - Last Filed: 11/21/19 17:26> - Past Medical History Anemia: No Asthma: Yes (NO RECENT ATTACK) Cancer: No Cardiac Disorders: Yes (HEART MURMUR) CVA: No COPD: No CHF: No Dementia: No Diabetes: No GI Disorders: No Disorders: No HTN: No Hypercholesterolemia: No Kidney Stones: No Liver Disease: No Seizures: No Thyroid Disease: No - Surgical History Neurologic Surgery: Yes (SUGERY OF NECK) Orthopedic Surgery: Yes (ATHROSOPIC SURGERY FOR ROTATOR CUFF BOTH,ELBOWS) - Reproductive History Testicular Surgery: No - Immunization History Immunization Up to Date: No - Psycho Social/Smoking Cessation Hx Smoking Status: Yes Smoking History: Current every day smoker Have you smoked in the past 12 months: Yes Number of Cigarettes Smoked Daily: 10 Cigars Per Day: 0 Information on smoking cessation initiated: Yes 'Breaking Loose' booklet given: 12/15/17 Hx Alcohol Use: No (I QUIT) Drug/Substance Use Hx: No (I QUIT) Substance Use Type: Heroin, Opiates Hx Substance Use Treatment: Yes (Attends [facility]; one previous detox @ [facility]) <Rhonda Turk - Last Filed: 11/23/19 01:24> - Past Medical History Allergies/Adverse Reactions: Allergies Allergy/AdvReac Type Severity Reaction Status Date / Time lithium [[place]] Allergy Severe Hives Verified 11/21/19 15:50 Home Medications: Ambulatory Orders Fluoxetine HCl [Prozac] 20 mg PO DAILY 12/14/17 Albuterol Sulfate Inhaler - [Ventolin HFA Inhaler -] 1 puff IH ASDIR 11/21/19 Bisacodyl [Laxative] 5 mg PO DAILY 11/21/19 Buprenorphine HCl/Naloxone HCl [Suboxone 8 mg-2 mg Sl Tablets] 1 tablet SL ASDIR 11/21/19 Gabapentin 800 mg PO DAILY 11/21/19 Ibuprofen 400 mg PO TID #15 tablet 11/21/19 Prazosin HCl [Minipress] 2 mg PO ASDIR 11/21/19 Tiotropium [place] [Spiriva Respimat] 0 gm IH ASDIR 11/21/19 Trihexyphenidyl HCl 2 mg PO DAILY 11/21/19 Venlafaxine HCl [Effexor -] 225 mg PO DAILY 11/21/19 *Physical Exam - Vital Signs Last Vital Signs Temp Pulse Resp BP Pulse Ox 98.3 F 109 H 18 130/78 100 11/21/19 15:50 11/21/19 15:50 11/21/19 15:50 11/21/19 15:50 11/21/19 15:50 <Car Renee - Last Filed: 11/21/19 17:26> - Vital Signs Last Vital Signs Temp Pulse Resp BP Pulse Ox 98.3 F 109 H 18 130/78 100 11/21/19 15:50 11/21/19 15:50 11/21/19 15:50 11/21/19 15:50 11/21/19 15:50 <Rhonda Turk - Last Filed: 11/23/19 01:24> ED Treatment Course - Medications Given in the ED: ED Medications Discontinued Medications Generic Name Dose Route Start Last Admin Trade Name Freq PRN Reason Stop Dose Admin Ibuprofen 600 mg 11/21/19 17:00 11/21/19 17:21 Motrin - PO 11/21/19 17:01 600 mg ONCE ONE Administration <Car Renee - Last Filed: 11/21/19 17:26> Medical Decision Making - Medical Decision Making 11/21/19 17:39 HPI: Endorses flu shot this year. Denies fever, chills, fatigue, headache, dizziness, numbness/tingling, weakness , vision changes, shortness of breath, chest pain, palpitations, leg swelling, abdominal pain, blood in stool, diarrhea, constipation, nausea, vomiting, dysuria, hematuria, confusion, SI/HI/AVH, depression. ROS: Constitutional: Negative for chills, fever, fatigue, diaphoresis. HENT: Positive for sore throat, rhinorrhea, congestion. Eyes: Negative for visual disturbance. Respiratory: Positive for cough. Negative for shortness of breath, and wheezing. Cardiovascular: Negative for chest pain, palpitations, and leg swelling. Gastrointestinal: Positive for nausea. Negative for abdominal pain, blood in stool, constipation, diarrhea, and vomiting. Genitourinary: Negative for dysuria, flank pain, and hematuria. Musculoskeletal: Negative for myalgias, back pain, and neck pain. Skin: Negative for rash. Neurological: Negative for light-headedness, dizziness, vertigo, syncope, weakness, numbness and headaches. Psychiatric/Behavioral: Negative for SI/HI/AVH and confusion. PE: Gen: Alert, NAD, comfortable-appearing, pacing HEENT: PERRL, EOMI, MMM, NCAT. No conjunctival pallor. Sclera are non-icteric. Oropharynx is clear. Nasal passages are clear. Neck supple. CV: Regular rate and rhythm. No murmurs, rubs, or gallops. PULM: No resp distress. CTAB, no wheezes, rales, or rhonchi. ABD: soft, NT/ND, no rebound tenderness or guarding, no CVA tenderness. BACK: No TTP of c/t/l-spine. No step-offs or deformities. MSK: No bony deformities. 2+ pulses in all extremities. NEURO: AAOx3. PERRL. No gross CN deficits. Strength and sensation grossly intact throughout. EXTREMITIES: No cyanosis. No clubbing. No edema. No calf tenderness. PSYCH: No SI/HI/AVH or e/o delusions. Mildly labile/agitated mood, slightly pressured speech, normal thought pattern. SKIN: Warm and dry. Normal capillary refill. No rashes. No jaundice. MDM: 59yo M hx approx 1wk ago with sore throat, rhinorrhea, congestion, cough productive of green/black phlegm , and nausea, Most likely viral URI. Throat clear but obtain strep test to r/o. No s/s of bronchitis, pneumonia, or emergent cardiac pathology. No s/s of psychiatric emergency. -Strep and throat cx -Motrin -Dispo: likely d/c home pending w/u Strep neg Received consent from pt to speak with sister. Spoke with sister on phone - pt lives with sister. Sister was concerned about green nasal discharge. Updated her on findings. Sister states pt can return to her home and can take a taxi. Safe for d/c home. Will dc home with PCP f/u. Return precautions given. Pt understands all dc instructions and all questions were answered. <Rhonda Turk - Last Filed: 11/23/19 01:24> Discharge - Discharge Information Problems reviewed: Yes - Admission No <Car Renee - Last Filed: 11/21/19 17:26> <Rhonda Turk - Last Filed: 11/23/19 01:24> - Discharge Information Clinical Impression/Diagnosis: Viral URI with cough Condition: Stable Disposition: HOME - Additional Discharge Information Prescriptions: Ibuprofen 400 mg PO TID #15 tablet - Follow up/Referral Referrals: Verónica Hankins MD [Primary Care Provider] - 2 Days - Patient Discharge Instructions Patient Printed Discharge Instructions: DI for Viral Upper Respiratory Infection -- Adult - Post Discharge Activity
--- NOTE | 2019-11-21 16:40 | PDOC ---
Attending Attestation - Resident Resident Name: RoslaeeRhonda - ED Attending Attestation I have performed the following: I have examined & evaluated the patient, The case was reviewed & discussed with the resident, I agree w/resident's findings & plan, Exceptions are as noted - HPI HPI: 11/21/19 17:43 Cold symptoms including sore throat and runny nose for several days. Concerned about green nasal discharge. No chest pain, shortness of breath, fever or chills. Has received a flu shot. Significant psychiatric history including bipolar illness and psychosis, discharged from psychiatric hospital approximately 7 days ago. - Physicial Exam PE: 11/21/19 17:44 Physical exam: Alert, cooperative, no acute distress Afebrile, vital signs normal HEENT: Mild nasal congestion, no nasal discharge present. Throat mildly injected without swelling mass or exudate Neck supple without bruit mass or nodes Lungs clear, full breath sounds bilaterally, no wheezes rales or rhonchi CV regular without murmur rub or gallop pulses full and symmetric no JVD or edema no bruits Abdomen soft nontender without mass organomegaly Skin clear, adequate turgor, wet mucous membranes Psychiatric: Alert and oriented, no delusions or hallucinations. Does not appear anxious or depressed, denies suicidal ideations. - Medical Decision Making 11/21/19 17:46 Assessment: Mild viral URI. No signs or symptoms of bronchitis or pneumonia. Psychiatric status appears stable Plan: Rest, symptomatic treatment, and follow-up primary physician. Return to ER if symptoms worsen
[2019-11-21] MEDS ORDERED: IBUPROFEN 600 MG TABLET (FP) PO ONE ×2 (17:00→17:19)
== END 2019-11-21 17:39 | disposition home or self-care (01) ==
LOC: SUPCPDRO 15:50 → FER 15:50
DX: J06.9 Acute upper respiratory infection, unspecified (principal); R05 Cough; R01.1 Cardiac murmur, unspecified; F17.210 Nicotine dependence, cigarettes, uncomplicated
CPT/HCPCS: 87070; 87880; 99282-25

== ENCOUNTER 2020-08-12 21:00 | Emergency (ER) | payer OTHER ==
--- NOTE | 2020-08-12 21:13 | PDOC ---
Rapid Medical Evaluation Time Seen by Provider: 08/12/20 21:07 Medical Evaluation: Allergies Allergy/AdvReac Type Severity Reaction Status Date / Time lithium [[place]] Allergy Severe Hives Verified 11/21/19 15:50 08/12/20 21:08 I have performed a brief in-person evaluation of this patient. CC: "I have a sinus infection and my face started swelling while shaving." PE: OP-WNL. No obvious neck swelling. No cervical lymphadenopathy. Orders: nothing. Patient will proceed to ED for further evaluation. Discharge Disposition - Diagnosis Nasal congestion - Referrals - Patient Instructions - Post Discharge Activity
[2020-08-12 21:27] VITALS: BP 142/96; PULSE 89; TEMP 98.9; BMI 29.7
--- NOTE | 2020-08-12 21:34 | PDOC ---
History of Present Illness - General Chief Complaint: Pain Stated Complaint: NECK PAIN Time Seen by Provider: 08/12/20 21:07 - History of Present Illness Initial Comments: 08/12/20 21:32 60-year-old male presents for evaluation of neck pain and sinus pressure x2 weeks. Neck pain noticed today while shaving. Past History - Medical History Allergies/Adverse Reactions: Allergies Allergy/AdvReac Type Severity Reaction Status Date / Time lithium [[place]] Allergy Severe Hives Verified 11/21/19 15:50 Home Medications: Ambulatory Orders Fluoxetine HCl [Prozac] 20 mg PO DAILY 12/14/17 Albuterol Sulfate Inhaler - [Ventolin HFA Inhaler -] 1 puff IH ASDIR 11/21/19 Bisacodyl [Laxative] 5 mg PO DAILY 11/21/19 Buprenorphine HCl/Naloxone HCl [Suboxone 8 mg-2 mg Sl Tablets] 1 tablet SL ASDIR 11/21/19 Gabapentin 800 mg PO DAILY 11/21/19 Ibuprofen 400 mg PO TID #15 tablet 11/21/19 Prazosin HCl [Minipress] 2 mg PO ASDIR 11/21/19 Tiotropium [place] [Spiriva Respimat] 0 gm IH ASDIR 11/21/19 Trihexyphenidyl HCl 2 mg PO DAILY 11/21/19 Venlafaxine HCl [Effexor -] 225 mg PO DAILY 11/21/19 Amox-Tr/K Cl [Augmentin - 875Mg Tablet] 1 tab PO BID #20 tablet 08/12/20 Anemia: No Asthma: Yes (NO RECENT ATTACK) Cancer: No Cardiac Disorders: Yes (HEART MURMUR) CVA: No COPD: No CHF: No Dementia: No Diabetes: No GI Disorders: No Disorders: No HTN: No Hypercholesterolemia: No Kidney Stones: No Liver Disease: No Seizures: No Thyroid Disease: No - Surgical History Neurologic Surgery: Yes (SURGERY OF NECK) Orthopedic Surgery: Yes (ATHROSOPIC SURGERY FOR ROTATOR CUFF BOTH,ELBOWS) - Reproductive History Testicular Surgery: No - Immunization History Immunization Up to Date: No - Psycho-Social/Smoking History Smoking Status: Yes Smoking History: Current every day smoker Have you smoked in the past 12 months: Yes Number of Cigarettes Smoked Daily: 10 Cigars Per Day: 0 Information on smoking cessation initiated: Yes 'Breaking Loose' booklet given: 02/01/18 - Substance Abuse Hx (Audit-C & DAST Scrn) How often the patient has a drink containing alcohol: Never Score: In Men: 4 or > Positive; In Women: 3 or > Positive: 0 Screen Result (Pos requires Nsg. Audit-10AR): Negative Review of Systems - Review of Systems Constitutional: No: Fever HEENTM: Yes: Nose Congestion Musculoskeletal: Yes: Neck Pain *Physical Exam - Vital Signs Last Vital Signs Temp Pulse Resp BP Pulse Ox 98.9 F 89 20 142/96 97 08/12/20 21:11 08/12/20 21:11 08/12/20 21:11 08/12/20 21:11 08/12/20 21:11 - Physical Exam 08/12/20 21:33 GENERAL: The patient is awake, alert, and fully oriented, in no acute distress. HEAD: Normal with no signs of trauma. EYES: sclera anicteric, conjunctiva clear. ENT: Ears normal tympanic membranes normal oropharynx clear uvula midlineTender maxillary sinus NECK: Normal range of motion LUNGS: Breath sounds equal, clear to auscultation bilaterally. No wheezes, and no crackles. HEART: S1 and S2 without murmur, rub or gallop. ABDOMEN: Soft, nontender, normoactive bowel sounds. No guarding, no rebound. No masses. EXTREMITIES: Normal range of motion, no edema. No clubbing or cyanosis. No cords, erythema, or tenderness. NEUROLOGICAL: Cranial nerves II through XII grossly intact. PSYCH: Normal mood, normal affect. SKIN: Warm, Dry, normal turgor, no rashes or lesions noted. Medical Decision Making - Medical Decision Making 08/12/20 21:33 Augmentin for sinusitis follow-up with ENT I have reviewed the pathophysiology with the patient. They are in agreement with the treatment plan all questions were answered to their satisfaction. Understanding for follow-up without fail was also conveyed to the patient. Again they are in agreement. Discharge - Discharge Information Problems reviewed: Yes Clinical Impression/Diagnosis: Nasal congestion, Sinusitis Condition: Stable Disposition: HOME - Admission No - Additional Discharge Information Prescriptions: Amox-Tr/K Cl [Augmentin - 875Mg Tablet] 1 tab PO BID #20 tablet - Follow up/Referral Referrals: Jason Henriquez MD [Primary Care Provider] - Eamon Hollins MD [Staff Physician] - - Patient Discharge Instructions Additional Instructions: Please take the antibiotics as directed and return to the emergency room should you have further issues. Without fail follow-up with ear nose and throat doctor in 1 to 2 days for further evaluation and treatment options. - Post Discharge Activity
--- OUTSIDE RECORDS SUMMARY | 2020-08-12 21:34 | XMS ---
:1960 Author Organization [facility] Care Team Providers Name Role Phone [facility], MHAW9 Unavailable Unavailable ARGELIA Aldridge Unavailable Unavailable ED STAFF PHYSICIAN, STAFF Unavailable Unavailable Martinez, Jason Unavailable Martinez, Jason Unavailable Martinez, Jason Unavailable Martinez, Jason Unavailable Martinez, Jason Unavailable EMERGENCY SERVICE, X Unavailable Unavailable DEBRA MANN Unavailable Unavailable [facility], HONOR9 Unavailable Unavailable Re-disclosure Warning The records that you are about to access may contain information from federally- assisted alcohol or drug abuse programs. If such information is present, then the following federally mandated warning applies: This information has been disclosed to you from records protected by federal confidentiality rules (42 CFR part 2). The federal rules prohibit you from making any further disclosure of this information unless further disclosure is expressly permitted by the written consent of the person to whom it pertains or as otherwise permitted by 42 CFR part 2. A general authorization for the release of medical or other information is NOT sufficient for this purpose. The Federal rules restrict any use of the information to criminally investigate or prosecute any alcohol or drug abuse patient.The records that you are about to access may contain highly sensitive health information, the redisclosure of which is protected by Article 27-F of the [facility] Public Health law. If you continue you may haveaccess to information: Regarding HIV / AIDS; Provided by facilities licensed or operated by the [facility] Office of Mental Health; or Provided by the [facility] Office for People With Developmental Disabilities. If such information is present, then the following [facility] mandated warning applies: This information has been disclosed to you from confidential records which are protected by state law. State law prohibits you from making any further disclosure of this information without the specific written consent of the person to whom it pertains, or as otherwise permitted by law. Any unauthorized further disclosure in violation of state law may result in a fine or correction sentence or both. A general authorization for the release of medical or other information is NOT sufficient authorization for further disclosure. Advance Directives Directive Description Caustics Loader Hood Fitter Status Observation Data S ource(s) Description 1. NONE [facility] 1. NONE [facility] 1. NONE [facility] 1. NONE [facility] 1. NONE [facility] 1. NONE [facility] 1. NONE [facility] Allergies and Adverse Reactions Type Description Substance Reaction Status Data Source(s ) Drug allergy Parachute Par[facility]ute [facility] Drug allergy No Known Drug No Known Drug [facility] Allergies Allergies [facility] Drug allergy No Known Allergies No Known [facility] Allergies [facility] Food allergy No Known Food No Known Food [facility] Allergies Allergies [facility] Drug allergy Parachute lithium citrate Cardiac Active eCW3 ([facility]) Encounters Encounter Providers Location Date Indications Data Source(s ) Attender: Jason 06/27/2020 MEDGEN ( [facility] 12:00:00 AM EDT Medical, [facility]) Office Attender: Jason Henriquez 06/27/2020 12:00:00 AM E DT MEDGEN ([facility], ) Office Attender: Jason Henriquez 06/27/2020 12:00:00 AM E DT MEDGEN ([facility], ) Office Outpatient Attender: MHAW9 [facility] 06/14/2020 12:54:06 PM GSI ([facility]T [facility]) Patient admitted. Attender: Jason Henriquez 05/26/2020 12:00:00 AM E DT MEDGEN ([facility], ) Office Attender: Jason Henriquez 05/26/2020 12:00:00 AM E DT MEDGEN ([facility], ) Office Attender: Jason Henriquez 05/26/2020 12:00:00 AM E DT MEDGEN ([facility], ) Office Attender: Jason Henriquez 05/26/2020 12:00:00 AM E DT MEDGEN ([facility], ) Office Unlisted evaluation 02/28/2020 03:30:00 NETSMART (Mental Health and management PM EDT [facility]) Unlisted evaluation 02/26/2020 07:45:00 NETSMART (Mental Health and management PM EDT [facility]) Outpatient Attender: MHAW9 02/01/2020 07:05:49 GSI ([facility] EDT Care [facility] tib[facility]cio) Patient admitted. Outpatient Attender: MHAW9 [facility] 01/17/2020 03:44:21 PM GSI ([facility]) Patient admitted. Outpatient Attender: HONOR9 [facility] 01/17/2020 03:44:18 PM GSI ([facility]) Patient admitted. Emergency Attender: EMERGENCY 12/20/2019 09:18:00 PAIN [facility] XAttender: PM EST Hu DEBRA MeadAdmitter: [facility] DEBRA MANN [facility] Emergency Attender: ARGELIA Su 11/23/2019 10:34:00 AM Nito Leonard: STAFF ED STAFF EST - 11/24/2019 [facility] PHYSICIANAdmitter: ARGELIA 06:10:00 PM EST MADELEINE Aldridge Patient discharged. Outpatient [facility] 09/04/2019 12:00:00 e CW3 ([facility] A28 AM EDT - 09/04/2019 [facility]) 12:00:00 AM EDT Outpatient [facility] 07/31/2019 12:00:00 e CW3 ([facility] A28 AM EDT - 07/31/2019 [facility]) 12:00:00 AM EDT Outpatient [facility] 07/03/2019 12:00:00 e CW3 ([facility] A28 AM EDT - 07/03/2019 Health Care) 12:00:00 AM EDT Outpatient [facility] 06/05/2019 12:00:00 e CW3 ([facility] A28 AM EDT - 06/05/2019 Health Care) 12:00:00 AM EDT Outpatient [facility] 05/08/2019 12:00:00 e CW3 ([facility] A28 AM EDT - 05/08/2019 Health Care) 12:00:00 AM EDT Outpatient [facility] 04/11/2019 12:00:00 e CW3 ([facility] A28 AM EDT - 04/11/2019 Health Care) 12:00:00 AM EDT Outpatient [facility] 03/13/2019 12:00:00 e CW3 ([facility] A28 AM EDT - 03/13/2019 Health Care) 12:00:00 AM EDT Outpatient [facility] 02/20/2019 12:00:00 e CW3 ([facility] A28 AM EDT - 02/20/2019 Health Care) 12:00:00 AM EDT Outpatient [facility] 01/30/2019 12:00:00 e CW3 ([facility] A28 AM EDT - 01/30/2019 Health Care) 12:00:00 AM EDT Outpatient [facility] 01/02/2019 12:00:00 e CW3 ([facility] A28 AM EST - 01/02/2019 Health Care) 12:00:00 AM EST Unlisted evaluation 09/14/2018 04:00:00 NETSMART (M[facility] Unlisted evaluation 07/05/2018 04:00:00 NETSMART (Mental and management AM EDT - 01/23/2020 [facility] of service 07:11:[address] [facility]) Immunizations Vaccine Date Status Description Data Source(s) New in 2011. IIV4 07/31/2019 completed eCW3 ([facility] 09:34:00 AM [facility]) New in 2011. IIV4 07/31/2019 completed eCW3 ([facility] 09:34:00 AM [facility]) As of July 1999, a 07/03/2019 completed eCW3 (Venmo 2-dose hepatitis B 09:32:00 AM [facility]) schedule for adolescents (11-15 year olds) was FDA approved for Merck's Recombivax HB adult formulation. Use code 43 for the 2-dose. This code should be used for any use of standard adult formulation of hepatitis B vaccine. As of July 1999, a 07/03/2019 completed eCW3 (Venmo 2-dose hepatitis B 09:32:00 AM [facility]) schedule for adolescents (11-15 year olds) was FDA approved for Merck's Recombivax HB adult formulation. Use code 43 for the 2-dose. This code should be used for any use of standard adult formulation of hepatitis B vaccine. As of July 1999, a 12/19/2018 completed eCW3 (Venmo 2-dose hepatitis B 09:31:00 AM [facility]) schedule for adolescents (11-15 year olds) was FDA approved for Merck's Recombivax HB adult formulation. Use code 43 for the 2-dose. This code should be used for any use of standard adult formulation of hepatitis B vaccine. As of July 1999, a 11/08/2018 completed eCW3 (Venmo 2-dose hepatitis B 04:22:00 PM [facility]) schedule for adolescents (11-15 year olds) was FDA approved for Merck's Recombivax HB adult formulation. Use code 43 for the 2-dose. This code should be used for any use of standard adult formulation of hepatitis B vaccine. New in 2011. IIV4 08/15/2018 completed MEDGEN ([facility] 12:00:00 AM EDT Medical, PC) New in 2011. IIV4 08/15/2018 completed MEDGEN ([facility] 12:00:00 AM EDT Medical, PC) pneumococcal 04/29/2017 completed [place] ed[facility] polysaccharide PPV23 05:38:00 PM EDT Cent er Medications Medication Brand Start Product Dose Route [facility] Indications Reaction Description Data Name Date Form Instructions Instructions Source(s) 24 HR buPROP 1.0 Oral active NETSMART Bupropion ion 2020 Table (Mental Hydrochlori HCl XL 04:00: t Heal th de 150 MG 00 AM Associati o Extended EDT n of Release [place] Oral Tablet r) Sertraline Sertra 2.0 Oral active NET SMART 100 MG Oral line 2020 Table (Mental Tablet HCl 04:00: t Health 00 AM Associatio EDT n of [place] r) gabapentin Gabape .0 Oral active NET SMART 800 MG Oral ntin 2019 Table (Mental Tablet 04:00: t Health 00 AM Associatio EDT n of Lety r) 24 HR buPROP .0 Oral active NETSMART Bupropion ion 2019 Table (Mental Hydrochlori HCl XL 04:00: t Heal th de 150 MG 00 AM Associati o Extended EDT n of Release [place] Oral Tablet r) Sertraline Sertra 2.0 Oral active NET SMART 100 MG Oral line 2019 Table (Mental Tablet HCl 04:00: t Health 00 AM Associatio EDT n of Let[place] r) 24 HR buPROP .0 Oral active NETSMART Bupropion ion 2019 Table (Mental Hydrochlori HCl XL 04:00: t Heal th de 300 MG 00 AM Associati o Extended EDT n of Release [place] Oral Tablet r) Doxepin Doxepi 2.0 Oral active NETSMA RT Hydrochlori n HCl 2020 Capsu (Menta l de 25 MG 04:00: le Health Oral 00 AM Associatio Capsule EDT n of [place] r) quetiapine QUEtia 3.0 Oral active NET SMART 100 MG Oral pine 2019 Table (Mental Tablet Fumara 04:00: t Health te 00 AM Associatio EDT n of Lety r) 24 HR buPROP .0 Oral active NETSMART Bupropion ion 2019 Table (Mental Hydrochlori HCl XL 04:00: t Heal th de 150 MG 00 AM Associati o Extended EDT n of Release [place] Oral Tablet r) Amlodipine Norvas 1.0 Oral active NET SMART 5 MG Oral c 2019 Table (Mental Tablet 04:00: t Health [Norvasc] 00 AM Associati o EDT n of Lety r) Buprenorphi BUPREN 06/27/ FILM 30 complet BUPREN ORPHIN MEDGEN (St ne 8 MG / ORPHIN 2020 ed E-NALOXONE Namita hn's Naloxone 2 E-NALO 12:00: Medic al, MG Oral XONE:1 00 AM PC) Strip [id number] EDT BUPRENORPHI NE-NALOXONE :[id number] 24 HR BUPROP 06/27/ TABLET, 30 complet BUPROPION MEDGEN (St Bupropion ION:99 2019 EXTENDED ed [facility] Hydrochlori 3557 12:00: RELEASE Med ical, de 300 MG 00 AM PC) Extended EDT Release Oral Tablet BUPROPION:9 70244 Amlodipine AMLODI 06/27/ TABLET 30 complet AMLOD IPINE MEDGEN (St 5 MG Oral PINE:1 2019 ed [facility] Tablet 06632 12:00: Medical, AMLODIPINE: 00 AM PC) [id number] EDT gabapentin GABAPE 06/27/ TABLET 30 complet GABAP ENTIN MEDGEN (St 800 MG Oral NTIN:3 2019 ed [facility] Tablet 89808 12:00: Medical, GABAPENTIN: 00 AM PC) 724184 EDT Ketoconazol KETOCO 06/27/ SHAMPOO 1 complet KET OCONAZOLE MED[facility] (St e 20 MG/ML NAZOLE 2019 ed TOPICAL [facility] Medicated TOPICA 12:00: Medica l, Shampoo L:1063 00 AM PC) KETOCONAZOL 36 EDT E TOPICAL:106 336 Sertraline SERTRA 06/27/ TABLET 30 complet SERTR ADEOLA MED[facility] (St 100 MG Oral LINE:3 2019 ed [facility] Tablet 52100 12:00: Medical, SERTRALINE: 00 AM PC) 700106 EDT quetiapine QUETIA 06/27/ TABLET 30 complet QUETI APINE MEDGEN (St 100 MG Oral PINE:3 2019 ed [facility] Tablet 24151 12:00: Medical, QUETIAPINE: 00 AM PC) 791463 EDT Nicotine 4 NICOTI 06/27/ LOZENGE 120 complet MARK PAMELA MEDGEN (St MG Oral NE 2019 ed MINI [facility] Lozenge MINI:3 12:00: Medical, NICOTINE 07609 00 AM PC) MINI:314858 EDT 60 ACTUAT SPIRIV 06/27/ AEROSOL 3 complet SPIRI VA MEDGEN (St tiotropium A 2019 ed RESPIMAT 60 Namita hn's 0.0025 RESPIM 12:00: ACT Medical, MG/ACTUAT AT 60 00 AM PC) Metered ACT:15 EDT Dose 76936 Inhaler [Spiriva] SPIRIVA RESPIMAT 60 ACT:[id number] Albuterol ALBUTE 06/27/ AEROSOL 1 complet ALBUT JOSHUA MEDGEN (St 0.09 ROL 2020 ed SULFATE HFA [facility] MG/ACTUAT SULFAT 12:00: Medica l, Metered E 00 AM PC) Dose HFA:13 EDT Inhaler 39603 ALBUTEROL SULFATE HFA:[id number] Buprenorphi Bupren 06/05/ active Bupreno rphin eCW3 ne 8 MG / orphin 2020 e ([facility] Naloxone 2 e 12:00: HCl-Naloxone [facility] Oral HCl-Na 00 AM HCl 8-2 MG Hea lth Strip loxone EDT Care) Buprenorphi HCl ne 8-2 MG HCl-Naloxon e HCl 8-2 MG Buprenorphi Bupren 06/05/ active Bupreno rphin eCW3 ne 8 MG / orphin 2020 e ([facility] Naloxone 2 e 12:00: HCl-Naloxone [facility] Oral HCl-Na 00 AM HCl 8-2 MG Hea lth Strip loxone EDT Care) Buprenorphi HCl ne 8-2 MG HCl-Naloxon e HCl 8-2 MG Amlodipine Norvas 1.0 Oral active NET SMART 5 MG Oral c 2019 Table (Mental Tablet 04:00: t Health [Norvasc] 00 AM [facility]ati [facility] Sertraline Sertra 2.0 Oral active NET SMART 100 MG Oral line 2019 Table (Mental Tablet HCl 04:00: t Health 00 AM [facility] Nicotine 4 NICOTI 05/26/ LOZENGE 120 complet MARK PAMELA MEDGEN (St MG Oral NE 2020 ed MINI [facility] Lozenge MINI:3 12:00: Medical, NICOTINE 98118 00 AM PC) MINI:[id number] EDT FLONASE:179 05/26/ SPRAY 1 complet FLONASE MED[facility] (St 7933 2020 ed [facility] 12:00: Medical, 00 AM PC) EDT FLONASE:179 05/26/ SPRAY 1 complet FLONASE MEDGEN (St 7933 2020 ed [facility] 12:00: Medical, 00 AM PC) EDT Doxepin Doxepi 04/29/ 2.0 Oral active NETSMA RT Hydrochlori n HCl 2020 Capsu (Menta l de 25 MG 04:00: le Health Oral 00 AM Associatio Capsule EDT n of Lety r) 24 HR buPROP 1.0 Oral active NETSMART Bupropion ion 2020 Table (Mental Hydrochlori HCl XL 04:00: t Heal th de 300 MG 00 AM Associati o Extended EDT n of Release Lety Oral Tablet r) quetiapine QUEtia 3.0 Oral active NET SMART 100 MG Oral pine 2019 Table (Mental Tablet Fumara 04:00: t Health te 00 AM Associatio EDT n of Lety r) Amlodipine Norvas 1.0 Oral active NET SMART 5 MG Oral c 2019 Table (Mental Tablet 04:00: t Health [Norvasc] 00 AM Associati o EDT n of Lety r) gabapentin Gabape 1.0 Oral active NET SMART 800 MG Oral ntin 2019 Table (Mental Tablet 04:00: t Health 00 AM Associatio EDT n of [place]y r) Sertraline Sertra 1.5 Oral active NET SMART 100 MG Oral line 2019 Table (Mental Tablet HCl 04:00: t Health 00 AM Associatio EDT n of [place] r) Bupropion buPROP 1.0 Oral active NETS MART Hydrochlori ion 2019 Table (Mental de 100 MG HCl 04:00: t Health Oral Tablet 00 AM Associa amanda EDT n of Lety r) VOLTAREN complet VOLTAREN ME DGEN (St TRANSDERMAL 2019 ed TRANSDERMAL J ohn's GEL: 12:00: GEL Medical, 00 AM PC) EDT Sertraline Sertra 1.5 Oral active NET SMART 100 MG Oral line 2020 Table (Mental Tablet HCl 04:00: t Health 00 AM Associatio EDT n of Lety r) Prazosin 2 Prazos 1.0 Oral active NET SMART MG Oral in HCl 2020 Capsu (Mental Capsule 04:00: le Health 00 AM Associatio EDT n of Lety r) Sertraline Sertra 1.0 Oral active NET SMART 100 MG Oral line 2020 Table (Mental Tablet HCl 04:00: t Health 00 AM Associatio EDT n of Lety r) quetiapine QUEtia 3.0 Oral active NET SMART 100 MG Oral pine 2020 Table (Mental Tablet Fumara 04:00: t Health te 00 AM [facility]atio [facility]) Amlodipine Norvas .0 Oral active NET SMART 5 MG Oral c 2020 Table (Mental Tablet 04:00: t Health [Norvasc] 00 AM Associati o EDT [facility]) gabapentin Gabape .0 Oral active NET SMART 800 MG Oral ntin 2020 Table (Mental Tablet 04:00: t Health 00 AM [facility]atio [facility] gabapentin Gabape .0 Oral active NET SMART 800 MG Oral ntin 2019 Table (Mental Tablet 04:00: t Health 00 AM [facility]atio EDT [facility] quetiapine QUEtia .0 Oral active NET SMART 100 MG Oral pine 2019 Table (Mental Tablet Fumara 04:00: t Health te 00 AM [facility]atio ED[facility]) Amlodipine Norvas .0 Oral active NET SMART 5 MG Oral c 2019 Table (Mental Tablet 04:00: t Health [Norvasc] 00 AM Associati o EDT [facility]) Sertraline Sertra .0 Oral active NET SMART 100 MG Oral line 2019 Table (Mental Tablet HCl 04:00: t Health 00 AM Associatio EDT [facility]) 0.9% NaCl 0.9% 999 UNK active 0.9% NaCl [facility] IV NaCl 2020 mL IV 1000 mL ; r Count y IV 09:53: IV rate: Health 44 PM Bolus over Care EST 30 minutes Corporati o n Medication administered onsite 0.9% 0.9% 12/20/2019 1000 mL UNK active 0.9% NaC l [place] NaCl IV NaCl IV 09:53:44 PM IV 1000 mL [facility] Health EST ; IV rate: Care Bolus over Corporati on 30 minutes Medication administered onsite Fluoxetine 20 FLUoxetine HCl 09/20/2019 3.0 Oral active NETSMART MG Oral Tablet 05:00:00 AM Tablet (Mental EST [facility]) 09/20/2019 ORAL active NETSMAR T 05:00:00 AM (Mental EST [facility] [place]) 24 HR Nicotine Nicotine 21 09/10/2019 1.0 active Magdiel eCW3 ([facility] 0.875 MG/HR MG/24HR 12:00:00 AM {patch_t tracy [facility] Transdermal EDT o_skin} ne Care) Patch Nicotine 21 21 MG/24HR MG/ 24H R 24 HR Nicotine Nicotine 21 09/10/2019 1.0 active Magdiel eCW3 ([facility] 0.875 MG/HR MG/24HR 12:00:00 AM {patch_t tracy [facility] Transdermal EDT o_skin} ne Care) Patch Nicotine 21 21 MG/24HR MG/ 24H R 24 HR Nicotine Nicotine 21 09/10/2019 1.0 active Magdiel eCW3 ([facility] 0.875 MG/HR MG/24HR 12:00:00 AM {patch_t tracy [facility] Transdermal EDT o_skin} ne Care) Patch Nicotine 21 21 MG/24HR MG/ 24H R 24 HR Nicotine Nicotine 21 09/10/2019 1.0 active Magdiel eCW3 ([facility] 0.875 MG/HR MG/24HR 12:00:00 AM {patch_t tracy [facility] Transdermal EDT o_skin} ne Care) Patch Nicotine 21 21 MG/24HR MG/ 24H R 24 HR Nicotine Nicotine 21 09/10/2019 1.0 active Magdiel eCW3 ([facility] 0.875 MG/HR MG/24HR 12:00:00 AM {patch_t tracy [facility] Transdermal EDT o_skin} ne Care) Patch Nicotine 21 21 MG/24HR MG/ 24H R 24 HR Nicotine Nicotine 21 09/10/2019 1.0 active Magdiel eCW3 ([facility] 0.875 MG/HR MG/24HR 12:00:00 AM {patch_t tracy [facility] Transdermal EDT o_skin} ne Care) Patch Nicotine 21 21 MG/24HR MG/ 24H R 24 HR Nicotine Nicotine 21 09/10/2019 1.0 active Magdiel eCW3 ([facility] 0.875 MG/HR MG/24HR 12:00:00 AM {patch_t tracy [facility] Transdermal EDT o_skin} ne Care) Patch Nicotine 21 21 MG/24HR MG/ 24H R 24 HR Nicotine Nicotine 21 09/10/2019 1.0 active Magdiel eCW3 ([facility] 0.875 MG/HR MG/24HR 12:00:00 AM {patch_t tracy [facility] Transdermal EDT o_skin} ne Care) Patch Nicotine 21 21 MG/24HR MG/ 24H R PROZAC 20 mg UNK 09/04/2019 active PRO eCW3 ([facility] 12:00:00 AM JUSTIN [facility] EDT 20 Care) mg Prazosin 1 MG Prazosin HCl 1 09/04/2019 1.0 active Pra eCW3 ([facility] Oral Capsule MG 12:00:00 AM {capsule z os [facility] Prazosin HCl 1 EDT _at_bedt in C are) MG ankush} HCl 1 MG PROZAC 20 mg UNK 09/04/2019 active PRO eCW3 ([facility] 12:00:00 AM JUSTIN [facility] EDT 20 Care) mg Prazosin 1 MG Prazosin HCl 1 09/04/2019 1.0 active Pra eCW3 ([facility] Oral Capsule MG 12:00:00 AM {capsule z os [facility] Prazosin HCl 1 EDT _at_bedt in C are) MG ankush} HCl 1 MG PROZAC 20 mg UNK 09/04/2019 active PRO eCW3 ([facility] 12:00:00 AM JUSTIN [facility] EDT 20 Care) mg Prazosin 1 MG Prazosin HCl 1 09/04/2019 1.0 active Pra eCW3 ([facility] Oral Capsule MG 12:00:00 AM {capsule z os [facility] Prazosin HCl 1 EDT _at_bedt in C are) MG ankush} HCl 1 MG Prazosin 1 MG Prazosin HCl 1 09/04/2019 1.0 active Pra eCW3 ([facility] Oral Capsule MG 12:00:00 AM {capsule z os [facility] Prazosin HCl 1 EDT _at_bedt in C are) MG ankush} HCl 1 MG PROZAC 20 mg UNK 09/04/2019 active PRO eCW3 ([facility] 12:00:00 AM JUSTIN [facility] EDT 20 Care) mg PROZAC 20 mg UNK 09/04/2019 active PRO eCW3 ([facility] 12:00:00 AM JUSTIN [facility] EDT 20 Care) mg Prazosin 1 MG Prazosin HCl 1 09/04/2019 1.0 active Pra eCW3 ([facility] Oral Capsule MG 12:00:00 AM {capsule z os [facility] Prazosin HCl 1 EDT _at_bedt in C are) MG ankush} HCl 1 MG Prazosin 1 MG Prazosin HCl 1 09/04/2019 1.0 active Pra eCW3 ([facility] Oral Capsule MG 12:00:00 AM {capsule z os [facility] Prazosin HCl 1 EDT _at_bedt in C are) MG ankush} HCl 1 MG Prazosin 1 MG Prazosin HCl 1 09/04/2019 1.0 active Pra eCW3 ([facility] Oral Capsule MG 12:00:00 AM {capsule z os [facility] Prazosin HCl 1 EDT _at_bedt in C are) MG ankush} HCl 1 MG Prazosin 1 MG Prazosin HCl 1 09/04/2019 1.0 active Pra eCW3 ([facility] Oral Capsule MG 12:00:00 AM {capsule z os [facility] Prazosin HCl 1 EDT _at_bedt in C are) MG ankush} HCl 1 MG PROZAC 20 mg UNK 09/04/2019 active PRO eCW3 ([facility] 12:00:00 AM JUSTIN [facility] EDT 20 Care) mg 09/03/2019 ORAL active NETSMAR T 04:00:00 AM (Mental EDT [facility]) Prazosin 2 MG Prazosin HCl 09/03/2019 2.0 Oral active NETSMART Oral Capsule 04:00:00 AM Capsule (Mental EDT [facility]) Trihexyphenidy Trihexyphenidy 09/03/2019 1.0 Oral active NETSMART l l HCl 04:00:00 AM Tablet (Ment al Hydrochloride EDT Health 2 MG Oral Associatio n Tablet [facility]) 24 HR Nicotine NICOTINE PATCH 08/28/2019 FILM 1 completed MAGDIEL MEDGEN (St 0.875 MG/HR STEP : 12:00:00 AM , TRACY [facility] Transdermal EDT EXTE [facility], ) Patch NICOTINE NDED PAT PATCH STEP RELE CH : ASE TYLER P 1 Trihexyphenidy TRIHEXYPHENIDY 08/28/2019 completed TRI MEDGEN (St l L:16759 12:00:00 AM HEX [facility] TRIHEXYPHENIDY EDT [facility] Medic al, PC) L:72328 ALAN DYL Naproxen 500 NAPROSYN:12083 08/28/2019 TABL 14 completed NAP MEDGEN (St MG Oral Tablet 9 12:00:00 AM ET SHANIQUA Null's [Naprosyn] EDT Medical, ) NAPROSYN:[id number] 9 08/23/2019 ORAL active NETSMAR T 04:00:00 AM ([facility]) 08/23/2019 ORAL completed NETS MART 04:00:00 AM ([facility]) 08/23/2019 ORAL completed NETS MART 04:00:00 AM ([facility]) 08/23/2019 ORAL active NETSMAR T 04:00:00 AM ([facility]) gabapentin 800 Gabapentin 08/23/2019 1.0 Oral active NETSMART MG Oral Tablet 04:00:00 AM Tablet ([facility]) Fluoxetine 60 FLUoxetine HCl 08/23/2019 1.0 Oral active NETSMART MG Oral Tablet 04:00:00 AM Tablet ([facility]) Hydroxyzine hydrOXYzine 08/23/2019 1.0 Oral active NETSMART Hydrochloride HCl 04:00:00 AM Tablet ([facility] 50 MG [facility]) quetiapine 100 QUEtiapine 08/23/2019 3.0 Oral active NETSMART MG Oral Tablet Fumarate 04:00:00 AM Tablet ([facility]) Trihexyphenidy Trihexyphenidy 07/25/2019 1.0 active Tri eCW3 ([facility] l l HCl 2 MG 12:00:00 AM {tablet} [facility]) 2 MG Oral alan Tablet dyl Trihexyphenidy HCl l HCl 2 MG 2 MG Trihexyphenidy Trihexyphenidy 07/25/2019 1.0 active Tri eCW3 ([facility] l l HCl 2 MG 12:00:00 AM {tablet} [facility]) 2 MG Oral alan Tablet dyl Trihexyphenidy HCl l HCl 2 MG 2 MG Trihexyphenidy Trihexyphenidy 07/25/2019 1.0 active Tri eCW3 ([facility] l l HCl 2 MG 12:00:00 AM {tablet} [facility]) 2 MG Oral alan Tablet dyl Trihexyphenidy HCl l HCl 2 MG 2 MG Trihexyphenidy Trihexyphenidy 07/25/2019 1.0 active Tri eCW3 ([facility] l l HCl 2 MG 12:00:00 AM {tablet} [facility]) 2 MG Oral alan Tablet dyl Trihexyphenidy HCl l HCl 2 MG 2 MG Trihexyphenidy Trihexyphenidy 07/25/2019 1.0 active Tri eCW3 ([facility] l l HCl 2 MG 12:00:00 AM {tablet} [facility]) 2 MG Oral alan Tablet dyl Trihexyphenidy HCl l HCl 2 MG 2 MG Trihexyphenidy Trihexyphenidy 07/25/2019 1.0 active Tri eCW3 ([facility] l l HCl 2 MG 12:00:00 AM {tablet} [facility]) 2 MG Oral alan Tablet dyl Trihexyphenidy HCl l HCl 2 MG 2 MG Trihexyphenidy Trihexyphenidy 07/25/2019 1.0 active Tri eCW3 ([facility] l l HCl 2 MG 12:00:00 AM {tablet} [facility]) 2 MG Oral alan Tablet dyl Trihexyphenidy HCl l HCl 2 MG 2 MG Trihexyphenidy Trihexyphenidy 07/25/2019 1.0 active Tri eCW3 ([facility] l l HCl 2 MG 12:00:00 AM {tablet} [facility]) 2 MG Oral alan Tablet dyl Trihexyphenidy HCl l HCl 2 MG 2 MG POLYETHYLENE 07/09/2019 POWD 30 completed P OL MEDGEN (St GLYCOL 12:00:00 AM ER YET [facility] [id number] EDT FOR [facility], ) RICKY HERLINDA NSTI GLY BRONSON COL ON 335 0 POLYETHYLENE 07/09/2019 POWD 30 completed P OL MEDGEN (St GLYCOL 12:00:00 AM ER YET [facility] [id number] EDT FOR [facility]) RICKY HERLINDA NSTI GLY BRONSON COL ON 335 0 doxycycline DOXYCYCLINE:16 06/18/2019 CAPS 20 completed DOX MEDGEN (St hyclate 100 MG 15294 12:00:00 AM ULE YC Y [facility] Oral Capsule EDT [facility] Medical , PC) DOXYCYCLINE:16 [place] [address] 06/11/2019 ORAL completed [facility]ART 04:00:00 AM ([facility]) 06/11/2019 ORAL completed [facility] 04:00:00 AM ([facility]) 06/11/2019 ORAL completed [facility] 04:00:00 AM ([facility]) 06/11/2019 ORAL completed [facility] 04:00:00 AM ([facility]) 04/23/2019 ORAL completed [facility] 04:00:00 AM ([facility]) 03/20/2019 ORAL completed [facility] 04:00:00 AM ([facility]) 03/20/2019 ORAL completed [facility] 04:00:00 AM ([facility]) 03/20/2019 ORAL completed [facility] 04:00:00 AM ([facility]) 03/20/2019 ORAL completed [facility] 04:00:00 AM ([facility]) 60 ACTUAT SPIRIVA 01/17/2019 AERO 3 completed S PI MEDGEN (St tiotropium RESPIMAT 60 12:00:00 AM KIRK LASHANDA [facility] 0.0025 ACT:[id number] EST A Medica l, ) MG/ACTUAT RES Metered Dose PIM Inhaler AT [Spiriva] 60 SPIRIVA ACT RESPIMAT 60 ACT:[id number] Fluoxetine 40 PROZAC:[id number] 01/17/2019 CAPS 30 completed PRO MEDGEN (St MG Oral 12:00:00 AM YURI Null' s Capsule [facility] Medical, [facility]) [Prozac] PROZAC:[id number] POLYETHYLENE 01/17/2019 POWD 30 completed P OL MEDGEN (St GLYCOL 12:00:00 AM ER YET [facility] [id number] EST FOR [facility] Medical, ) RICKY HERLINDA NSTI GLY BRONSON COL ON 335 0 Albuterol 0.09 ALBUTEROL 01/17/2019 AERO 1 completed ALB MEDGEN (St MG/ACTUAT SULFATE 12:00:00 AM KIRK ALMAZJeremiah Null's Metered Dose [id number]:[id number] EST [facility] Medical, ) Inhaler SUL ALBUTEROL FAT SULFATE E HFA:[id number] HFA 60 ACTUAT SPIRIVA 12/20/2018 AERO 1 completed S PI MEDGEN (St tiotropium RESPIMAT 60 12:00:00 AM KIRK LASHANDA Barnard 0.0025 ACT:[id number] EST A Medica l, ) MG/ACTUAT RES Metered Dose PIM Inhaler AT [Spiriva] 60 SPIRIVA ACT RESPIMAT 60 ACT:[id number] gabapentin 600 GABAPENTIN:310 01/03/2018 TABL 90 completed DAGMAR MEDGEN (St MG Oral Tablet 433 12:00:00 AM ET APJeremiah Null's GABAPENTIN:310 EST NTI Medic nh, ) 433 N quetiapine 200 QUETIAPINE:317 03/10/2017 TABL 60 completed QUE MEDGEN (St MG Oral Tablet 174 12:00:00 AM ET TIA [facility] QUETIAPINE:317 EDT [facility] al, PC) 174 E 28 ACTUAT Spiriva 2.0 active Spi eCW3 ([facility] tiotropium Respimat 2.5 {puffs} lashanda [facility] 0.0025 MCG/ACT a Care) MG/ACTUAT Res Metered Dose pim Inhaler at [Spiriva] 2.5 Spiriva MCG Respimat 2.5 /AC MCG/ACT T 200 ACTUAT Ventolin HFA 2.0 active Ricardo eCW3 ([facility] Albuterol 0.09 108 (90 Base) {puffs_a eber [facility] MG/ACTUAT MCG/ACT s_needed in Car e) Metered Dose } HFA Inhaler 108 [Ventolin] (90 Ventolin HFA Bas 108 (90 Base) e) MCG/ACT MCG /AC T 28 ACTUAT Spiriva 2.0 active Spi eCW3 ([facility] tiotropium Respimat 2.5 {puffs} lashanda [facility] 0.0025 MCG/ACT a Care) MG/ACTUAT Res Metered Dose pim Inhaler at [Spiriva] 2.5 Spiriva MCG Respimat 2.5 /AC MCG/ACT T quetiapine 100 Seroquel 100 1.0 active Ser eCW3 ([facility] MG Oral Tablet mg {tablet} o R iv Health [Seroquel] el Care) Seroquel 100 100 mg mg gabapentin 600 Gabapentin 600 1.0 active Dagmar eCW3 ([facility] MG Oral Tablet MG {tablet} ape [facility] Gabapentin 600 nti Care) MG n 600 MG 28 ACTUAT Spiriva 2.0 active Spi eCW3 ([facility] tiotropium Respimat 2.5 {puffs} lashanda [facility] 0.0025 MCG/ACT a Care) MG/ACTUAT Res Metered Dose pim Inhaler at [Spiriva] 2.5 Spiriva MCG Respimat 2.5 /AC MCG/ACT T 200 ACTUAT Ventolin HFA 2.0 active Ricardo eCW3 ([facility] Albuterol 0.09 108 (90 Base) {puffs_a eber [facility] MG/ACTUAT MCG/ACT s_needed in Car e) Metered Dose } HFA Inhaler 108 [Ventolin] (90 Ventolin HFA Bas 108 (90 Base) e) MCG/ACT MCG /AC T quetiapine 100 Seroquel 100 1.0 active Ser eCW3 ([facility] MG Oral Tablet mg {tablet} o R [facility] [Seroquel] el Care) Seroquel 100 100 mg mg PROZAC 20 mg UNK active PRO eCW3 ([facility]) mg Hydroxyzine HydrOXYzine active Hyd eCW3 ([facility] Hydrochloride HCl 50 MG Alonso [facility] 50 MG Oral Yzi Care) Tablet ne HydrOXYzine HCl HCl 50 MG 50 MG Hydroxyzine HydrOXYzine active Hyd eCW3 ([facility] Hydrochloride HCl 50 MG Alonso [facility] 50 MG Oral Yzi Care) Tablet ne HydrOXYzine HCl HCl 50 MG 50 MG quetiapine 100 Seroquel 100 1.0 active Ser eCW3 ([facility] MG Oral Tablet mg [facility] Care) Seroquel 100 100 mg mg gabapentin 600 Gabapentin 600 1.0 active Dagmar eCW3 ([facility] MG Oral Tablet MG {tablet} ape [facility] Gabapentin 600 nti Care) MG n 600 MG Buprenorphine Buprenorphine 1.0 active Bup eCW3 ([facility] 8 MG / HCl-Naloxone {tablet_ won [facility] Naloxone 2 MG HCl 8-2 MG under_th o rp Care) Sublingual e_tongue hin Tablet _and_all e Buprenorphine ow_to_di HCl HCl-Naloxone ssolve} -Na HCl 8-2 MG lox one HCl 8-2 MG gabapentin 600 Gabapentin 600 1.0 active Dagmar eCW3 ([facility] MG Oral Tablet MG {tablet} ape [facility] Gabapentin 600 nti Care) MG n 600 MG Hydroxyzine HydrOXYzine active Hyd eCW3 ([facility] Hydrochloride HCl 50 MG Alonso [facility] 50 MG Oral Yzi Care) Tablet ne HydrOXYzine HCl HCl 50 MG 50 MG gabapentin 600 Gabapentin 600 1.0 active Dagmar eCW3 ([facility] MG Oral Tablet MG {tablet} ape [facility] Gabapentin 600 nti Care) MG n 600 MG Buprenorphine Buprenorphine 1.0 active Bup eCW3 ([facility] 8 MG / HCl-Naloxone {tablet_ won [facility] Naloxone 2 MG HCl 8-2 MG under_th o rp Care) Sublingual e_tongue hin Tablet _and_all e Buprenorphine ow_to_di HCl HCl-Naloxone ssolve} -Na HCl 8-2 MG lox one HCl 8-2 MG Prozac 20 mg UNK active Pro eCW3 ([facility] justin [facility] 20 Care) mg gabapentin 600 Gabapentin 600 1.0 active Dagmar eCW3 ([facility] MG Oral Tablet MG {tablet} ape [facility] Gabapentin 600 nti Care) MG n 600 MG quetiapine 100 Seroquel 100 1.0 active Ser eCW3 ([facility] MG Oral Tablet mg {tablet} oqu [facility] [Seroquel] el Care) Seroquel 100 100 mg mg Hydroxyzine HydrOXYzine active Hyd eCW3 ([facility] Hydrochloride HCl 50 MG Alonso [facility] 50 MG Oral Yzi Care) Tablet ne HydrOXYzine HCl HCl 50 MG 50 MG 200 ACTUAT Ventolin HFA 2.0 active Ricardo eCW3 ([facility] Albuterol 0.09 108 (90 Base) {puffs_a eber [facility] MG/ACTUAT MCG/ACT s_needed in Car e) Metered Dose } HFA Inhaler 108 [Ventolin] (90 Ventolin HFA Bas 108 (90 Base) e) MCG/ACT MCG /AC T Naproxen 500 Naproxen 500 active Na p eCW3 ([facility] MG Oral Tablet MG alonso [facility] en Care) 500 MG quetiapine 100 Seroquel 100 1.0 active Ser eCW3 ([facility] MG Oral Tablet mg {tablet} oqu [facility] [Seroquel] el Care) Seroquel 100 100 mg mg venlafaxine 25 Effexor 999 MG oral completed Eff [facility] MG Oral Tablet exo [facility] Effexor r [employer] Hydroxyzine HydrOXYzine active Hyd eCW3 ([facility] Hydrochloride HCl 50 MG Alonso R [facility] 50 MG Oral Yzi Care) Tablet ne HydrOXYzine HCl HCl 50 MG 50 MG 200 ACTUAT Ventolin HFA 2.0 active Ricardo eCW3 ([facility] Albuterol 0.09 108 (90 Base) {puffs_a eber [facility] MG/ACTUAT MCG/ACT s_needed in Car e) Metered Dose } HFA Inhaler 108 [Ventolin] (90 Ventolin HFA Bas 108 (90 Base) e) MCG/ACT MCG /AC T gabapentin 600 Gabapentin 600 1.0 active Dagmar eCW3 ([facility] MG Oral Tablet MG {tablet} [facility] Gabapentin 600 nti Care) MG n 600 MG gabapentin gabapentin 999 MG oral completed g ab [facility] nti [facility] n [facility] Sertraline 50 Zoloft 50 MG 1.0 active Z ol eCW3 ([facility] MG Oral Tablet {tablet} oft [facility] [Zoloft] 50 Care) Zoloft 50 MG MG quetiapine 100 Seroquel 100 1.0 active Ser eCW3 ([facility] MG Oral Tablet mg {tablet} oqu [facility] [Seroquel] el Care) Seroquel 100 100 mg mg gabapentin 600 Gabapentin 600 1.0 active Dagmar eCW3 ([facility] MG Oral Tablet MG {tablet} [facility] Gabapentin 600 nti Care) MG n 600 MG Amitriptyline Amitriptyline 1.0 active Ami eCW3 ([facility] Hydrochloride HCl 25 MG {tablet_ tr i [facility] 25 MG Oral at_bedti pty Care) Tablet me} [facility] Amitriptyline e HCl 25 MG HCl 25 MG Naproxen 500 Naproxen 500 active Na p eCW3 ([facility] MG Oral Tablet MG alonso [facility] en Care) 500 MG Buprenorphine Buprenorphine 1.0 active Bup eCW3 ([facility] 8 MG / HCl-Naloxone {tablet_ [facility] Naloxone 2 MG HCl 8-2 MG under_th o rp Care) Sublingual e_tongue hin Tablet _and_all e Buprenorphine ow_to_di HCl HCl-Naloxone ssolve} -Na HCl 8-2 MG lox one HCl 8-2 MG 28 ACTUAT Spiriva 2.0 active Spi eCW3 ([facility] tiotropium Respimat 2.5 {puffs} lashanda [facility] 0.0025 MCG/ACT a Care) MG/ACTUAT Res Metered Dose pim Inhaler at [Spiriva] 2.5 Spiriva MCG Respimat 2.5 /AC MCG/ACT T gabapentin 600 Gabapentin 600 1.0 active Dagmar eCW3 ([facility] MG Oral Tablet MG {tablet} ape [facility] Gabapentin 600 nti Care) MG n 600 MG quetiapine 25 Seroquel 999 MG oral completed Ser [facility] MG Oral Tablet oqu [facility] [Seroquel] el [employer] Naproxen 500 Naproxen 500 active Na p eCW3 ([facility] MG Oral Tablet MG alonso [facility] en Care) 500 MG 28 ACTUAT Spiriva 2.0 active Spi eCW3 ([facility] tiotropium Respimat 2.5 {puffs} lashanda [facility] 0.0025 MCG/ACT a Care) MG/ACTUAT Res Metered Dose pim Inhaler at [Spiriva] 2.5 Spiriva MCG Respimat 2.5 /AC MCG/ACT T Buprenorphine Buprenorphine 1.0 active Bup eCW3 ([facility] 8 MG / HCl-Naloxone {tablet_ won [facility] Naloxone 2 MG HCl 8-2 MG under_th o rp Care) Sublingual e_tongue hin Tablet _and_all e Buprenorphine ow_to_di HCl HCl-Naloxone ssolve} -Na HCl 8-2 MG lox one HCl 8-2 MG Hydroxyzine HydrOXYzine active Hyd eCW3 ([facility] Hydrochloride HCl 50 MG Alonso [facility] 50 MG Oral Yzi Care) Tablet ne HydrOXYzine HCl HCl 50 MG 50 MG 28 ACTUAT Spiriva 2.0 active Spi eCW3 ([facility] tiotropium Respimat 2.5 {puffs} lashanda [facility] 0.0025 MCG/ACT a Care) MG/ACTUAT Res Metered Dose pim Inhaler at [Spiriva] 2.5 Spiriva MCG Respimat 2.5 /AC MCG/ACT T Naproxen 500 Naproxen 500 active Na p eCW3 ([facility] MG Oral Tablet MG alonso [facility] en Care) 500 MG Buprenorphine Buprenorphine 1.0 active Bup eCW3 ([facility] 8 MG / HCl-Naloxone {tablet_ won [facility] Naloxone 2 MG HCl 8-2 MG under_th o rp Care) Sublingual e_tongue hin Tablet _and_all e Buprenorphine ow_to_di HCl HCl-Naloxone ssolve} -Na HCl 8-2 MG lox one HCl 8-2 MG gabapentin 600 Gabapentin 600 1.0 active Dagmar eCW3 ([facility] MG Oral Tablet MG {tablet} ape [facility] Gabapentin 600 nti Care) MG n 600 MG 200 ACTUAT Ventolin HFA 2.0 active Ricardo eCW3 ([facility] Albuterol 0.09 108 (90 Base) {puffs_a eber [facility] MG/ACTUAT MCG/ACT s_needed in Car e) Metered Dose } HFA Inhaler 108 [Ventolin] (90 Ventolin HFA Bas 108 (90 Base) e) MCG/ACT MCG /AC T Naproxen 500 Naproxen 500 active Na p eCW3 ([facility] MG Oral Tablet MG alonso [facility] en Care) 500 MG gabapentin 600 Gabapentin 600 1.0 active Dagmar eCW3 ([facility] MG Oral Tablet MG {tablet} ape [facility] Gabapentin 600 nti Care) MG n 600 MG Buprenorphine Buprenorphine 1.0 active Bup eCW3 ([facility] 8 MG / HCl-Naloxone {tablet_ won [facility] Naloxone 2 MG HCl 8-2 MG under_th o rp Care) Sublingual e_tongue hin Tablet _and_all e Buprenorphine ow_to_di HCl HCl-Naloxone ssolve} -Na HCl 8-2 MG lox one HCl 8-2 MG 28 ACTUAT Spiriva 2.0 active Spi eCW3 ([facility] tiotropium Respimat 2.5 {puffs} lashanda [facility] 0.0025 MCG/ACT a Care) MG/ACTUAT Res Metered Dose pim Inhaler at [Spiriva] 2.5 Spiriva MCG Respimat 2.5 /AC MCG/ACT T Naproxen 500 Naproxen 500 active Na p eCW3 ([facility] MG Oral Tablet MG alonso [facility] en Care) 500 MG Naproxen 500 Naproxen 500 active Na p eCW3 ([facility] MG Oral Tablet MG alonso [facility] en Care) 500 MG 200 ACTUAT Ventolin HFA 2.0 active Ricardo eCW3 ([facility] Albuterol 0.09 108 (90 Base) {puffs_a eber [facility] MG/ACTUAT MCG/ACT s_needed in Car e) Metered Dose } HFA Inhaler 108 [Ventolin] (90 Ventolin HFA Bas 108 (90 Base) e) MCG/ACT MCG /AC T Buprenorphine Buprenorphine 1.0 active Bup eCW3 ([facility] 8 MG / HCl-Naloxone {tablet_ won [facility] Naloxone 2 MG HCl 8-2 MG under_th o rp Care) Sublingual e_tongue hin Tablet _and_all e Buprenorphine ow_to_di HCl HCl-Naloxone ssolve} -Na HCl 8-2 MG lox one HCl 8-2 MG 200 ACTUAT Ventolin HFA 2.0 active Ricardo eCW3 ([facility] Albuterol 0.09 108 (90 Base) {puffs_a eber [facility] MG/ACTUAT MCG/ACT s_needed in Car e) Metered Dose } HFA Inhaler 108 [Ventolin] (90 Ventolin HFA Bas 108 (90 Base) e) MCG/ACT MCG /AC T gabapentin gabapentin 999 MG oral completed g ab [facility] nti Care n [facility] quetiapine 100 Seroquel 100 1.0 active Ser eCW3 ([facility] MG Oral Tablet mg {tablet} oqu [facility] [Seroquel] el Care) Seroquel 100 100 mg mg Hydroxyzine HydrOXYzine active Hyd eCW3 ([facility] Hydrochloride HCl 50 MG Alonso [facility] 50 MG Oral Yzi Care) Tablet ne HydrOXYzine HCl HCl 50 MG 50 MG Sertraline 50 Zoloft 50 MG 1.0 active Z ol eCW3 ([facility] MG Oral Tablet {tablet} oft [facility] [Zoloft] 50 Care) Zoloft 50 MG MG 200 ACTUAT Ventolin HFA 2.0 active Ricardo eCW3 ([facility] Albuterol 0.09 108 (90 Base) {puffs_a eber [facility] MG/ACTUAT MCG/ACT s_needed in Car e) Metered Dose } HFA Inhaler 108 [Ventolin] (90 Ventolin HFA Bas 108 (90 Base) e) MCG/ACT MCG /AC T 200 ACTUAT Ventolin HFA 2.0 active Ricardo eCW3 ([facility] Albuterol 0.09 108 (90 Base) {puffs_a eber [facility] MG/ACTUAT MCG/ACT s_needed in Car e) Metered Dose } HFA Inhaler 108 [Ventolin] (90 Ventolin HFA Bas 108 (90 Base) e) MCG/ACT MCG /AC T Hydroxyzine HydrOXYzine active Hyd eCW3 ([facility] Hydrochloride HCl 50 MG Alonso [facility] 50 MG Oral Yzi Care) Tablet ne HydrOXYzine HCl HCl 50 MG 50 MG Naproxen 500 Naproxen 500 active Na p eCW3 ([facility] MG Oral Tablet MG alonso [facility] en Care) 500 MG quetiapine 100 Seroquel 100 1.0 active Ser eCW3 ([facility] MG Oral Tablet mg {tablet} oqu [facility] [Seroquel] el Care) Seroquel 100 100 mg mg 28 ACTUAT Spiriva 2.0 active Spi eCW3 ([facility] tiotropium Respimat 2.5 {puffs} lashanda [facility] 0.0025 MCG/ACT a Care) MG/ACTUAT Res Metered Dose pim Inhaler at [Spiriva] 2.5 Spiriva MCG Respimat 2.5 /AC MCG/ACT T Hydroxyzine HydrOXYzine active Hyd eCW3 ([facility] Hydrochloride HCl 50 MG Alonso [facility] 50 MG Oral Yzi Care) Tablet ne HydrOXYzine HCl HCl 50 MG 50 MG quetiapine 100 Seroquel 100 1.0 active Ser eCW3 ([facility] MG Oral Tablet mg {tablet} oqu [facility] [Seroquel] el Care) Seroquel 100 100 mg mg 28 ACTUAT Spiriva 2.0 active Spi eCW3 ([facility] tiotropium Respimat 2.5 {puffs} lashanda [facility] 0.0025 MCG/ACT a Care) MG/ACTUAT Res Metered Dose pim Inhaler at [Spiriva] 2.5 Spiriva MCG Respimat 2.5 /AC MCG/ACT T Buprenorphine Buprenorphine 1.0 active Bup eCW3 ([facility] 8 MG / HCl-Naloxone {tablet_ won [facility] Naloxone 2 MG HCl 8-2 MG under_th o rp Care) Sublingual e_tongue hin Tablet _and_all e Buprenorphine ow_to_di HCl HCl-Naloxone ssolve} -Na HCl 8-2 MG lox one HCl 8-2 MG 28 ACTUAT Spiriva 2.0 active Spi eCW3 ([facility] tiotropium Respimat 2.5 {puffs} lashanda [facility] 0.0025 MCG/ACT a Care) MG/ACTUAT Res Metered Dose pim Inhaler at [Spiriva] 2.5 Spiriva MCG Respimat 2.5 /AC MCG/ACT T quetiapine 25 Seroquel 999 MG oral completed Ser [facility] MG Oral Tablet oqu [employer] [Seroquel] [employer] venlafaxine 25 Effexor 999 MG oral completed Eff [facility] MG Oral Tablet exo [employer] E[employer] 200 ACTUAT Ventolin HFA 2.0 active Ricardo eCW3 ([facility] Albuterol 0.09 108 (90 Base) {puffs_a eber [facility] MG/ACTUAT MCG/ACT s_needed in Car e) Metered Dose } HFA Inhaler 108 [Ventolin] (90 Ventolin HFA Bas 108 (90 Base) e) MCG/ACT MCG /AC T quetiapine 100 Seroquel 100 1.0 active Ser eCW3 ([facility] MG Oral Tablet mg {tablet} oqu R [employer] [Seroquel] el [employer] Seroquel 100 100 mg mg Insurance Providers Payer name Policy type Policy ID Covered Covered republican's Policy P alex / Coverage republican ID relationship to [place] [facility] ormation type aldridge AFFINITY [id number] 1 [id number] 300 HEALTH PLAN AFFINITY [id number] SP [id number] 300 UNK UNK UNK UNK UNK UNK AFFINITY O [id number] 01 [id number] HEALTH PLAN W [id number] AFFINITY W [id number] 01 [id number] 300 HEALTH PLAN AFFINITY [id number] SP [id number] [place] [id number] [place] [id number] HEALTH PLAN Insured Problems, Conditions, and Diagnoses Code Display Name Description Problem Type Effective Data Sour ce(s) Dates I10 Essential (primary) ESSENTIAL (PRIMARY) Problem 020 MEDGEN (St hypertension HYPERTENSION 12:00:00 AM [facility] EDT [facility], ) T78.40XA Allergy, ALLERGY, Problem 05/26/2020 MEDGEN (St unspecified, UNSPECIFIED, 12:00:00 AM [facility]'s initial encounter INITIAL ENCOUNTER EDT Medical, ) T78.40XA Allergy, ALLERGY, Problem 05/26/2020 MEDGEN (St unspecified, UNSPECIFIED, 12:00:00 AM [facility]'s initial encounter INITIAL ENCOUNTER EDT Medical, ) F31.9 Bipolar disorder Bipolar disorder Problem 05/07/2020 eC W3 ([facility] 12:00:00 AM [facility] EDT Care) S49.81XS Other specified OTHER SPECIFIED Problem 03/26/2020 MEDG EN (St injuries of right INJURIES OF RIGHT 12:00:00 AM [facility] shoulder and upper SHOULDER AND UPPER EDT Medical, ) arm, sequela ARM, SEQUELA R22.31 Localized swelling, LOCALIZED SWELLING, Problem MEDGEN (St mass and lump, MASS AND LUMP, 12:00:00 AM [facility] right upper limb RIGHT UPPER LIMB EDT [facility], ) M25.511 Pain in right PAIN IN RIGHT Problem 03/26/2020 MEDGEN ( St shoulder SHOULDER 12:00:00 AM [facility] EDT Medical, ) S49.81XS Other specified OTHER SPECIFIED Problem 03/26/2020 MEDG EN (St injuries of right INJURIES OF RIGHT 12:00:00 AM [facility]'s shoulder and upper SHOULDER AND UPPER EDT Medical, ) arm, sequela ARM, SEQUELA R22.31 Localized swelling, LOCALIZED SWELLING, Problem MEDGEN (St mass and lump, MASS AND LUMP, 12:00:00 AM [facility] right upper limb RIGHT UPPER LIMB EDT [facility], ) M25.511 Pain in right PAIN IN RIGHT Problem 03/26/2020 MEDGEN ( St shoulder SHOULDER 12:00:00 AM [facility] EDT Medical, ) F17.210 Cigarette nicotine Cigarette nicotine Problem 0 eCW3 ([facility] dependence without dependence without 12:00:00 AM [facility] complication complication EDT Care) F17.210 Cigarette nicotine Cigarette nicotine Problem 0 eCW3 ([facility] dependence without dependence without 12:00:00 AM [facility] complication complication EDT Care) R20.2 Paresthesia of skin PARESTHESIA OF SKIN Problem 020 MEDGEN (St 12:00:00 AM [facility], ) R20.2 Paresthesia of skin PARESTHESIA OF SKIN Problem 020 MEDGEN (St 12:00:00 AM [facility], ) R23.3 Spontaneous SPONTANEOUS Problem 03/03/2020 MEDGEN (St ecchymoses ECCHYMOSES 12:00:00 AM [facility], ) J06.9 Acute upper ACUTE UPPER Problem 03/03/2020 MEDGEN (St respiratory RESPIRATORY 12:00:00 AM [facility] infection, INFECTION, T Medical, ) unspecified UNSPECIFIED R23.3 Spontaneous SPONTANEOUS Problem 03/03/2020 MEDGEN (St ecchymoses ECCHYMOSES 12:00:00 AM [facility], ) J06.9 Acute upper ACUTE UPPER Problem 03/03/2020 MEDGEN (St respiratory RESPIRATORY 12:00:00 AM [facility] infection, INFECTION, EDT Medical, ) unspecified UNSPECIFIED [id number] Psychoactive [facility] substance use 02:45:00 PM (Mental Health disorder disorder EDT [facility]) J34.2 Deviated nasal DEVIATED NASAL Problem 08/28/2019 MEDGEN (St septum SEPTUM 12:00:00 AM [facility], ) M25.569 Pain in unspecified PAIN IN UNSPECIFIED Problem 019 MEDGEN (St knee KNEE 12:00:00 AM [facility], ) J34.2 Deviated nasal DEVIATED NASAL Problem 08/28/2019 MEDGEN (St septum SEPTUM 12:00:00 AM [facility], ) M25.569 Pain in unspecified PAIN IN UNSPECIFIED Problem 019 MEDGEN (St knee KNEE 12:00:00 AM [facility], ) Z71.51 Drug abuse DRUG ABUSE Problem 06/18/2019 MEDGEN (St counseling and COUNSELING AND 12:00:00 AM [facility] surveillance of SURVEILLANCE OF EDT [facility]) drug abuser DRUG ABUSER S40.861A Insect bite INSECT BITE Problem 06/18/2019 MEDGEN (St (nonvenomous) of (NONVENOMOUS) OF 12:00:00 AM J ohn's right upper arm, RIGHT UPPER ARM, EDT [facility], ) initial encounter INITIAL ENCOUNTER R35.0 Frequency of FREQUENCY OF Problem 06/18/2019 MEDGEN (St micturition MICTURITION 12:00:00 AM [facility], ) R25.1 Tremor, unspecified TREMOR, UNSPECIFIED Problem 019 MEDGEN (St 12:00:00 AM [facility], ) Z71.51 Drug abuse DRUG ABUSE Problem 06/18/2019 MEDGEN (St counseling and COUNSELING AND 12:00:00 AM [facility] surveillance of SURVEILLANCE OF EDT [facility]) drug abuser DRUG ABUSER S40.861A Insect bite INSECT BITE Problem 06/18/2019 MEDGEN (St (nonvenomous) of (NONVENOMOUS) OF 12:00:00 AM J ohn's right upper arm, RIGHT UPPER ARM, EDT [facility], ) initial encounter INITIAL ENCOUNTER R35.0 Frequency of FREQUENCY OF Problem 06/18/2019 MEDGEN (St micturition MICTURITION 12:00:00 AM [facility], ) R25.1 Tremor, unspecified TREMOR, UNSPECIFIED Problem 019 MEDGEN (St 12:00:00 AM [facility], ) R35.8 Other polyuria OTHER POLYURIA Problem 06/15/2019 MEDGEN (St 12:00:00 AM [facility], ) G31.84 Mild cognitive MILD COGNITIVE Problem 06/15/2019 MEDGEN (St impairment, so IMPAIRMENT, SO 12:00:00 [facility] G25.1 Drug-induced tremor DRUG-INDUCED TREMOR Problem 019 MEDGEN (St 12:00:00 AM [facility], ) R35.8 Other polyuria OTHER POLYURIA Problem 06/15/2019 MEDGEN (St 12:00:00 AM [facility], ) G31.84 Mild cognitive MILD COGNITIVE Problem 06/15/2019 MEDGEN (St impairment, so IMPAIRMENT, SO 12:00:00 AM [facility]' s stated STATED EDT Medical, ) G25.1 Drug-induced tremor DRUG-INDUCED TREMOR Problem 019 MEDGEN (St 12:00:00 AM [facility] [place], ) H11.31 Conjunctival CONJUNCTIVAL Problem 02/05/2019 MEDGEN (St hemorrhage, right HEMORRHAGE, RIGHT 12:00:00 AM [facility] eye EYE T Medical, ) H11.31 Conjunctival CONJUNCTIVAL Problem 02/05/2019 MEDGEN (St hemorrhage, right HEMORRHAGE, RIGHT 12:00:00 AM [facility] eye EYE T Medical, ) F32.2 Moderately severe Moderately severe Problem 01/30/2019 eCW3 ([place] depression depression 12:00:00 AM [facility] EDT Care) F32.2 Moderately severe Moderately severe Problem 01/30/2019 eCW3 ([place] depression depression 12:00:00 AM [facility] EDT Care) F32.2 Moderately severe Moderately severe Problem 01/30/2019 eCW3 ([facility] depression depression 12:00:00 AM [facility] EDT Care) Z12.11 Encounter for ENCOUNTER FOR Problem 01/17/2019 MEDGEN ( St screening for SCREENING FOR 12:00:00 AM [facility] malignant neoplasm MALIGNANT NEOPLASM EST Medical, ) of colon OF COLON Z12.11 Encounter for ENCOUNTER FOR Problem 01/17/2019 MEDGEN ( St screening for SCREENING FOR 12:00:00 AM [facility] malignant neoplasm MALIGNANT NEOPLASM EST Medical, ) of colon OF COLON J44.9 Chronic obstructive CHRONIC OBSTRUCTIVE Problem 019 MEDGEN (St pulmonary disease, PULMONARY DISEASE, 12:00:00 AM [facility] unspecified UNSPECIFIED EST Medical, ) J44.9 Chronic obstructive CHRONIC OBSTRUCTIVE Problem 019 MEDGEN (St pulmonary disease, PULMONARY DISEASE, 12:00:00 AM [facility] unspecified UNSPECIFIED EST Medical, ) R91.8 Other nonspecific OTHER NONSPECIFIC Problem 12/07/2018 MEDGEN (St abnormal finding of ABNORMAL FINDING OF 12:00:0 0 AM [facility] lung field LUNG FIELD EST Medical, ) R93.5 Abnormal findings ABNORMAL FINDINGS Problem 12/07/2018 MEDGEN (St on diagnostic ON DIAGNOSTIC 12:00:00 AM [facility] imaging of other IMAGING OF OTHER EST Me dical, PC) abdominal regions, ABDOMINAL REGIONS, including INCLUDING retroperitoneum RETROPERITONEUM R21 Rash and other RASH AND OTHER Problem 12/07/2018 MEDGEN (St nonspecific skin NONSPECIFIC SKIN 12:00:00 AM [facility] eruption ERUPTION EST Medical, PC) R91.8 Other nonspecific OTHER NONSPECIFIC Problem 12/07/2018 MEDGEN (St abnormal finding of ABNORMAL FINDING OF 12:00:0 0 AM [facility] lung field LUNG FIELD EST Medical, PC) R93.5 Abnormal findings ABNORMAL FINDINGS Problem 12/07/2018 MEDGEN (St on diagnostic ON DIAGNOSTIC 12:00:00 AM [facility] imaging of other IMAGING OF OTHER EST Me dical, PC) abdominal regions, ABDOMINAL REGIONS, including INCLUDING retroperitoneum RETROPERITONEUM R21 Rash and other RASH AND OTHER Problem 12/07/2018 MEDGEN (St nonspecific skin NONSPECIFIC SKIN 12:00:00 AM [facility] eruption ERUPTION EST Medical, PC) F11.21 Opioid use Opioid use Problem 11/22/2018 eCW3 ([facility] disorder, severe, disorder, severe, 12:00:00 AM [facility] in early remission, in early remission, EST Care) on maintenance on maintenance therapy, dependence therapy, dependence F31.62 Bipolar disorder, Bipolar disorder, Problem 11/22/2018 eCW3 ([facility] current episode current episode 12:00:00 AM [facility] mixed, moderate mixed, moderate EST Care ) F11.21 Opioid use Opioid use Problem 11/22/2018 eCW3 ([facility] disorder, severe, disorder, severe, 12:00:00 AM [facility] in early remission, in early remission, EST Care) on maintenance on maintenance therapy, dependence therapy, dependence F31.62 Bipolar disorder, Bipolar disorder, Problem 11/22/2018 eCW3 ([facility] current episode current episode 12:00:00 AM [facility] mixed, moderate mixed, moderate EST Care ) F31.62 Bipolar disorder, Bipolar disorder, Problem 11/22/2018 eCW3 ([facility] current episode current episode 12:00:00 AM [facility] mixed, moderate mixed, moderate EST Care ) F11.21 Opioid use Opioid use Problem 11/22/2018 eCW3 ([facility] disorder, severe, disorder, severe, 12:00:00 AM [facility] in early remission, in early remission, EST Care) on maintenance on maintenance therapy, dependence therapy, dependence F11.99 Opioid use disorder Opioid use disorder Problem 018 eCW3 ([facility] 12:00:[address] [facility]) R19.7 Diarrhea, DIARRHEA, Problem 10/19/2018 MEDGEN (St unspecified UNSPECIFIED 12:00:00 AM [facility], [place], ) F11.23 Opioid dependence OPIOID DEPENDENCE Problem 10/19/2018 MEDGEN (St with withdrawal WITH WITHDRAWAL 12:00:00 AM [facility] ) R19.7 Diarrhea, DIARRHEA, Problem 10/19/2018 MEDGEN (St unspecified UNSPECIFIED 12:00:00 AM [facility], [place], ) F11.23 Opioid dependence OPIOID DEPENDENCE Problem 10/19/2018 MEDGEN (St with withdrawal WITH WITHDRAWAL 12:00:00 AM [facility] ([place], ) Z79.899 Other prison OTHER SENIOR CARE Problem 08/17/2018 MEDG EN (St (current) drug (CURRENT) DRUG 12:00:00 AM [facility] THERAPY EDT [facility], ) 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) R94.5 Abnormal results of ABNORMAL RESULTS OF Problem 018 MEDGEN (St liver function LIVER FUNCTION 12:00:00 AM [facility] STUDIES EDT Medical, ) L08.9 Local infection of LOCAL INFECTION OF Problem 8 MEDGEN (St the skin and THE SKIN AND 12:00:00 AM [facility] subcutaneous SUBCUTANEOUS EDT Medical, P C) tissue, unspecified TISSUE, UNSPECIFIED R94.5 Abnormal results of ABNORMAL RESULTS OF Problem 018 MEDGEN (St liver function LIVER FUNCTION 12:00:00 AM [facility]' s studies STUDIES [facility], ) L08.9 Local infection of LOCAL INFECTION OF Problem 8 MEDGEN (St the skin and THE SKIN AND 12:00:00 AM [facility] subcutaneous SUBCUTANEOUS EDT Medical, P C) tissue, unspecified TISSUE, UNSPECIFIED E66.09 Other obesity due OTHER OBESITY DUE Problem 01/03/2018 MEDGEN (St to excess calories TO EXCESS CALORIES 12:00:00 AM [facility], ) E66.09 Other obesity due OTHER OBESITY DUE Problem 01/03/2018 MEDGEN (St to excess calories TO EXCESS CALORIES 12:00:00 AM [facility], [place], ) K59.00 Constipation, CONSTIPATION, Problem 11/01/2017 MEDGEN ( St unspecified UNSPECIFIED 12:00:00 AM [facility] [place], ) B17.10 Acute hepatitis C ACUTE HEPATITIS C Problem 11/01/2017 MEDGEN (St without hepatic WITHOUT HEPATIC 12:00:00 AM [facility], ) B18.2 Chronic viral CHRONIC VIRAL Problem 11/01/2017 MEDGEN ( St hepatitis C HEPATITIS C 12:00:00 AM [facility] [place], ) K59.00 Constipation, CONSTIPATION, Problem 11/01/2017 MEDGEN ( St unspecified UNSPECIFIED 12:00:00 AM [facility] [place], ) B17.10 Acute hepatitis C ACUTE HEPATITIS C Problem 11/01/2017 MEDGEN (St without hepatic WITHOUT HEPATIC 12:00:00 AM [facility], ) B18.2 Chronic viral CHRONIC VIRAL Problem 11/01/2017 MEDGEN ( St hepatitis C HEPATITIS C 12:00:00 AM [facility] [place], ) F31.9 Bipolar disorder, BIPOLAR DISORDER, Problem 09/15/2017 MEDGEN (St unspecified UNSPECIFIED 12:00:00 AM [facility], ) Z00.01 Encounter for ENCOUNTER FOR Problem 09/15/2017 MEDGEN ( St general adult GENERAL ADULT 12:00:00 AM [facility] medical examination MEDICAL EXAMINATION [facility], ) with abnormal WITH ABNORMAL findings FINDINGS F31.9 Bipolar disorder, BIPOLAR DISORDER, Problem 09/15/2017 MEDGEN (St unspecified UNSPECIFIED 12:00:00 AM [facility], ) Z00.01 Encounter for ENCOUNTER FOR Problem 09/15/2017 MEDGEN ( St general adult GENERAL ADULT 12:00:00 AM [facility] medical examination MEDICAL EXAMINATION T [facility], ) with abnormal WITH ABNORMAL findings FINDINGS J45.20 Mild intermittent MILD INTERMITTENT Problem 04/12/2017 MEDGEN (St asthma, ASTHMA, 12:00:00 AM [facility] uncomplicated UNCOMPLICATED T Medical, ) J01.10 Acute frontal ACUTE FRONTAL Problem 04/12/2017 MEDGEN ( St sinusitis, SINUSITIS, 12:00:00 AM [facility] unspecified UNSPECIFIED [facility] Medical, ) F06.31 Mood disorder due MOOD DISORDER DUE Problem 04/12/2017 MEDGEN (St to known TO KNOWN 12:00:00 AM [facility] physiological PHYSIOLOGICAL T [facility], ) condition with CONDITION WITH depressive features DEPRESSIVE FEATURES J45.20 Mild intermittent MILD INTERMITTENT Problem 04/12/2017 MEDGEN (St asthma, ASTHMA, 12:00:00 AM [facility] uncomplicated UNCOMPLICATED T Medical, ) J01.10 Acute frontal ACUTE FRONTAL Problem 04/12/2017 MEDGEN ( St sinusitis, SINUSITIS, 12:00:00 AM [facility] unspecified UNSPECIFIED [facility] Medical, ) F06.31 Mood disorder due MOOD DISORDER DUE Problem 04/12/2017 MEDGEN (St to known TO KNOWN 12:00:00 AM [facility] physiological PHYSIOLOGICAL T Medical, ) condition with CONDITION WITH depressive features DEPRESSIVE FEATURES E16.2 Hypoglycemia, HYPOGLYCEMIA, Problem 03/17/2017 MEDGEN ( St unspecified UNSPECIFIED 12:00:00 AM [facility], ) E16.2 Hypoglycemia, HYPOGLYCEMIA, Problem 03/17/2017 MEDGEN ( St unspecified UNSPECIFIED 12:00:00 AM [facility], ) M79.2 Neuralgia and NEURALGIA AND Problem 03/10/2017 MEDGEN ( St neuritis, NEURITIS, 12:00:00 AM [facility] unspecified UNSPECIFIED T Medical, ) F43.21 Adjustment disorder ADJUSTMENT DISORDER Problem 017 MEDGEN (St with depressed mood WITH DEPRESSED MOOD 12:00:0 0 AM [facility], ) F30.9 Manic episode, MANIC EPISODE, Problem 03/10/2017 MEDGEN (St unspecified UNSPECIFIED 12:00:00 AM [facility] EDT Medical, ) F17.200 Nicotine NICOTINE Problem 03/10/2017 MEDGEN (St dependence, DEPENDENCE, 12:00:00 AM [facility] unspecified, UNSPECIFIED, EDT Medical, P C) uncomplicated UNCOMPLICATED F11.20 Opioid dependence, OPIOID DEPENDENCE, Problem 7 MEDGEN (St uncomplicated UNCOMPLICATED 12:00:00 AM [facility] EDT Medical, ) E11.8 Type 2 diabetes TYPE 2 DIABETES Problem 03/10/2017 MEDG EN (St mellitus with MELLITUS WITH 12:00:00 AM [facility] unspecified UNSPECIFIED EDT Medical, ) complications COMPLICATIONS Z00.00 Encounter for ENCOUNTER FOR Problem 03/10/2017 MEDGEN ( St general adult GENERAL ADULT 12:00:00 AM [facility] medical examination MEDICAL EXAMINATION EDT Medical, ) without abnormal WITHOUT ABNORMAL findings FINDINGS M79.2 Neuralgia and NEURALGIA AND Problem 03/10/2017 MEDGEN ( St neuritis, NEURITIS, 12:00:00 AM [facility] unspecified UNSPECIFIED EDT Medical, ) F43.21 Adjustment disorder ADJUSTMENT DISORDER Problem 017 MEDGEN (St with depressed mood WITH DEPRESSED MOOD 12:00:0 0 AM [facility] EDT Medical, ) F30.9 Manic episode, MANIC EPISODE, Problem 03/10/2017 MEDGEN (St unspecified UNSPECIFIED 12:00:00 AM [facility] EDT Medical, ) F17.200 Nicotine NICOTINE Problem 03/10/2017 MEDGEN (St dependence, DEPENDENCE, 12:00:00 AM [facility] unspecified, UNSPECIFIED, EDT Medical, P C) uncomplicated UNCOMPLICATED F11.20 Opioid dependence, OPIOID DEPENDENCE, Problem 7 MEDGEN (St uncomplicated UNCOMPLICATED 12:00:00 AM [facility] EDT Medical, ) E11.8 Type 2 diabetes TYPE 2 DIABETES Problem 03/10/2017 MEDG EN (St mellitus with MELLITUS WITH 12:00:00 AM [facility] unspecified UNSPECIFIED EDT Medical, ) complications COMPLICATIONS Z00.00 Encounter for ENCOUNTER FOR Problem 03/10/2017 MEDGEN ( St general adult GENERAL ADULT 12:00:00 AM [facility] medical examination MEDICAL EXAMINATION EDT Medical, ) without abnormal WITHOUT ABNORMAL findings FINDINGS M47.812 Spondylosis without SPONDYLOSIS W/O Diagnosis 12/20/2019 [facility] myelopathy or MYELOPATHY OR 09:18:00 PM [facility] radiculopathy, RADICULOPATHY, EST Care cervical region CERVICAL REGION Artemio oration F31.9 Bipolar disorder, BIPOLAR DISORDER, Diagnosis 12/20/2019 [facility] unspecified UNSPECIFIED 09:18:00 PM [facility] EST Care [facility] Y99.8 Other external OTHER EXTERNAL Diagnosis 12/20/2019 [facility] elicia cause status CAUSE STATUS 09:18:00 PM [facility] EST Care [facility] Y92.[address] IN UNSP Diagnosis 12/20/2019 [facility] in unspecified NON-INSTITUT 09:18:00 PM [facility] non-institutional (PRIVATE) RESIDENCE EST [facility] [place] (private) residence PLACE Corpo ration as the place of occurrence of the external cause W18.09XA Striking against STRIKING AGAINST Diagnosis 12/20/2019 [facility] other object with OTH OBJECT W 09:18:00 PM [facility] subsequent fall, SUBSEQUENT FALL, EST Ca re initial encounter INIT ENCNTR Corpor ation S09.90XA Unspecified injury UNSPECIFIED INJURY Diagnosis 0 [facility] of head, initial OF HEAD, INITIAL 09:18:00 PM ounty [facility] encounter ENCOUNTER [place] S00.83XA Contusion of other CONTUSION OF OTHER Diagnosis 0 [facility] part of head, PART OF HEAD, 09:18:00 PM [facility] initial encounter INITIAL ENCOUNTER [place] R55 Syncope and SYNCOPE AND Diagnosis 12/20/2019 [facility] collapse COLLAPSE 09:18:00 PM [facility] F17.210 Nicotine NICOTINE Diagnosis 11/23/2019 [facility] dependence, DEPENDENCE, 10:34:[address] cigarettes, CIGARETTES, EST uncomplicated UNCOMPLICATED J40 Bronchitis, not BRONCHITIS, NOT Diagnosis 11/23/2019 [facility] specified as acute SPECIFIED ACUTE 10:34:00 AM [facility] or chronic OR CHRONIC EST F39 Unspecified mood UNSPECIFIED MOOD Diagnosis 11/23/2019 [facility] [affective] (AFFECTIVE) 10:34:[address] disorder DISORDER EST F31.9 Bipolar disorder, BIPOLAR DISORDER, Diagnosis 11/23/2019 [facility] unspecified UNSPECIFIED 10:34:[address] EST R45.851 Suicidal ideations SUICIDAL IDEATIONS Diagnosis 0 [facility] 10:34:00 AM Medical Cookie r MARIALUISA Surgeries/Procedures Procedure Description Date Indications Data Source(s) Documentation of current 06/27/2020 MED GEN ([facility] medications (procedure) 12:00:00 AM EDT karl, ) Documentation of current 06/27/2020 MED GEN ([facility] medications (procedure) 12:00:00 AM EDT [facility] PC) Documentation of current 06/27/2020 MED GEN ([facility] medications (procedure) 12:00:00 AM EDT karl ) Documentation of current 06/27/2020 MED GEN ([facility] medications (procedure) 12:00:00 AM EDT karl ) TOBACCO USE CESSATION 06/27/2020 MEDGEN ([facility] INTERMEDIATE 3-10 MINUTES 12:00:00 AM [facility] ) OFFICE OUTPATIENT VISIT 06/27/2020 MEDG EN ([facility] 15 MINUTES 12:00:00 AM [facility] ) Documentation of current 05/26/2020 MED GEN ([facility] medications (procedure) 12:00:00 AM EDT PEGGY barajas) Documentation of current 05/26/2020 MED GEN ([facility] medications (procedure) 12:00:00 AM EDT PEGGY barajas) Documentation of current 05/26/2020 MED GEN ([facility] medications (procedure) 12:00:00 AM EDT [facility] PC) Documentation of current 05/26/2020 MED GEN ([facility] medications (procedure) 12:00:00 AM EDT PEGGY barajas) Documentation of current 05/26/2020 MED GEN ([facility] medications (procedure) 12:00:00 AM EDT [facility] PC) Documentation of current 05/26/2020 MED GEN ([facility] medications (procedure) 12:00:00 AM EDT [facility] PC) Documentation of current 05/26/2020 MED GEN ([facility] medications (procedure) 12:00:00 AM EDT [facility] PC) Documentation of current 05/26/2020 MED GEN ([facility] medications (procedure) 12:00:00 AM EDT edical, PC) Documentation of current 05/26/2020 MED GEN ([facility] medications (procedure) 12:00:00 AM EDT [facility], PC) Documentation of current 05/26/2020 MED GEN ([facility] medications (procedure) 12:00:00 AM EDT [facility], PC) Documentation of current 05/26/2020 MED GEN ([facility] medications (procedure) 12:00:00 AM EDT [facility], PC) Documentation of current 05/26/2020 MED GEN ([facility] medications (procedure) 12:00:00 AM EDT [facility], PC) Documentation of current 05/26/2020 MED GEN ([facility] medications (procedure) 12:00:00 AM EDT [facility], PC) Documentation of current 05/26/2020 MED GEN ([facility] medications (procedure) 12:00:00 AM EDT [facility], PC) Documentation of current 05/26/2020 MED GEN ([facility] medications (procedure) 12:00:00 AM EDT [facility], PC) Documentation of current 05/26/2020 MED GEN ([facility] medications (procedure) 12:00:00 AM EDT [facility], PC) Documentation of current 05/26/2020 MED GEN ([facility] medications (procedure) 12:00:00 AM EDT [facility], PC) Documentation of current 05/26/2020 MED GEN ([facility] medications (procedure) 12:00:00 AM EDT [facility], PC) Documentation of current 05/26/2020 MED GEN ([facility] medications (procedure) 12:00:00 AM EDT [facility] PC) COLLECTION VENOUS BLOOD 05/26/2020 MEDG EN ([facility] VENIPUNCTURE 12:00:00 AM [facility], PC) Documentation of current 05/26/2020 MED GEN ([facility] medications (procedure) 12:00:00 AM EDT [facility], PC) Documentation of current 05/26/2020 MED GEN ([facility] medications (procedure) 12:00:00 AM EDT [facility], PC) Documentation of current 05/26/2020 MED GEN ([facility] medications (procedure) 12:00:00 AM EDT [facility], PC) Documentation of current 05/26/2020 MED GEN ([facility] medications (procedure) 12:00:00 AM EDT [facility], PC) Documentation of current 05/26/2020 MED GEN ([facility] medications (procedure) 12:00:00 AM EDT [facility], PC) Documentation of current 05/26/2020 MED GEN ([facility] medications (procedure) 12:00:00 AM EDT [facility], PC) Documentation of current 05/26/2020 MED GEN ([facility] medications (procedure) 12:00:00 AM EDT [facility], PC) OFFICE OUTPATIENT VISIT 05/26/2020 MEDG EN ([facility] 25 MINUTES 12:00:00 AM [facility], ) Documentation of current 03/26/2020 MED GEN ([facility] medications (procedure) 12:00:00 AM EDT [facility], PC) Documentation of current 03/26/2020 MED GEN ([facility] medications (procedure) 12:00:00 AM EDT [facility], PC) Documentation of current 03/26/2020 MED GEN ([facility] medications (procedure) 12:00:00 AM EDT [facility], PC) Documentation of current 03/26/2020 MED GEN ([facility] medications (procedure) 12:00:00 AM EDT [facility], PC) Documentation of current 03/26/2020 MED GEN ([facility] medications (procedure) 12:00:00 AM EDT [facility], PC) PHYSICIAN TELEPHONE 03/26/2020 MEDGEN ( [facility] EVALUATION 11-20 MIN 12:00:00 AM EDT [facility], PC) Documentation of current 03/26/2020 MED GEN ([facility] medications (procedure) 12:00:00 AM EDT [facility], PC) Documentation of current 03/26/2020 MED GEN ([facility] medications (procedure) 12:00:00 AM EDT [facility], PC) Documentation of current 03/26/2020 MED GEN ([facility] medications (procedure) 12:00:00 AM EDT [facility], PC) PHYSICIAN TELEPHONE 03/26/2020 MEDGEN ( [facility] EVALUATION 11-20 MIN 12:00:00 AM EDT [facility], PC) Documentation of current 03/05/2020 MED GEN ([facility] medications (procedure) 12:00:00 AM EDT [facility], PC) Documentation of current 03/05/2020 MED GEN ([facility] medications (procedure) 12:00:00 AM EDT [facility], PC) Documentation of current 03/05/2020 MED GEN ([facility] medications (procedure) 12:00:00 AM EDT [facility], PC) Documentation of current 03/05/2020 MED GEN ([facility] medications (procedure) 12:00:00 AM EDT [facility], PC) Documentation of current 03/05/2020 MED GEN ([facility] medications (procedure) 12:00:00 AM EDT [facility], PC) Documentation of current 03/05/2020 MED GEN ([facility] medications (procedure) 12:00:00 AM EDT [facility], PC) Documentation of current 03/05/2020 MED GEN ([facility] medications (procedure) 12:00:00 AM EDT [facility], PC) Documentation of current 03/05/2020 MED GEN ([facility] medications (procedure) 12:00:00 AM EDT [facility], PC) Documentation of current 03/05/2020 MED GEN ([facility] medications (procedure) 12:00:00 AM EDT [facility], PC) Documentation of current 03/05/2020 MED GEN ([facility] medications (procedure) 12:00:00 AM EDT [facility], PC) Documentation of current 03/05/2020 MED GEN ([facility] medications (procedure) 12:00:00 AM EDT [facility], PC) Documentation of current 03/05/2020 MED GEN ([facility] medications (procedure) 12:00:00 AM EDT [facility], PC) Documentation of current 03/05/2020 MED GEN ([facility] medications (procedure) 12:00:00 AM EDT [facility], PC) Documentation of current 03/05/2020 MED GEN ([facility] medications (procedure) 12:00:00 AM EDT [facility], PC) Documentation of current 03/05/2020 MED GEN ([facility] medications (procedure) 12:00:00 AM EDT [facility], PC) Documentation of current 03/05/2020 MED GEN ([facility] medications (procedure) 12:00:00 AM EDT PEGGY Oshea) Documentation of current 03/05/2020 MED GEN ([facility] medications (procedure) 12:00:00 AM EDT PEGGY Oshea) Documentation of current 03/05/2020 MED GEN ([facility] medications (procedure) 12:00:00 AM EDT PEGGY Oshea) Documentation of current 03/05/2020 MED GEN ([facility] medications (procedure) 12:00:00 AM EDT PEGGY barajas) Documentation of current 03/05/2020 MED GEN ([facility] medications (procedure) 12:00:00 AM EDT PEGGY barajas) PHYSICIAN TELEPHONE 03/05/2020 MEDGEN ( [facility] EVALUATION 11-20 MIN 12:00:00 AM EDT PEGGY Seth) Documentation of current 03/05/2020 MED GEN ([facility] medications (procedure) 12:00:00 AM EDT [facility] PC) Documentation of current 03/05/2020 MED GEN ([facility] medications (procedure) 12:00:00 AM EDT PEGGY barajas) Documentation of current 03/05/2020 MED GEN ([facility] medications (procedure) 12:00:00 AM EDT [facility] PC) Documentation of current 03/05/2020 MED GEN ([facility] medications (procedure) 12:00:00 AM EDT PEGGY barajas) Documentation of current 03/05/2020 MED GEN ([facility] medications (procedure) 12:00:00 AM EDT [facility] PC) Documentation of current 03/05/2020 MED GEN ([facility] medications (procedure) 12:00:00 AM EDT PEGGY Oshea) Documentation of current 03/05/2020 MED GEN ([facility] medications (procedure) 12:00:00 AM EDT [facility] PC) Documentation of current 03/05/2020 MED GEN ([facility] medications (procedure) 12:00:00 AM EDT PEGGY barajas) Documentation of current 03/05/2020 MED GEN ([facility] medications (procedure) 12:00:00 AM EDT [facility] PC) Documentation of current 03/05/2020 MED GEN ([facility] medications (procedure) 12:00:00 AM EDT PEGGY Oshea) Documentation of current 03/05/2020 MED GEN ([facility] medications (procedure) 12:00:00 AM EDT PEGGY Oshea) Documentation of current 03/05/2020 MED GEN ([facility] medications (procedure) 12:00:00 AM EDT PEGGY Oshea) Documentation of current 03/05/2020 MED GEN ([facility] medications (procedure) 12:00:00 AM EDT PEGGY Oshea) Documentation of current 03/05/2020 MED GEN ([facility] medications (procedure) 12:00:00 AM EDT [facility] PC) Documentation of current 03/05/2020 MED GEN ([facility] medications (procedure) 12:00:00 AM EDT Crow [facility] PC) Documentation of current 03/05/2020 MED GEN ([facility] medications (procedure) 12:00:00 AM EDT PEGGY Oshea) Documentation of current 03/05/2020 MED GEN ([facility] medications (procedure) 12:00:00 AM EDT PEGGY Oshea) Documentation of current 03/05/2020 MED GEN ([facility] medications (procedure) 12:00:00 AM EDT PEGGY Oshea) Documentation of current 03/05/2020 MED GEN ([facility] medications (procedure) 12:00:00 AM EDT PEGGY Oshea) PHYSICIAN TELEPHONE 03/05/2020 MEDGEN ( [facility] EVALUATION 11-20 MIN 12:00:00 AM EDT [facility], PC) PHYSICIAN TELEPHONE 03/03/2020 MEDGEN ( [facility] EVALUATION 21-30 MIN 12:00:00 AM EDT [facility] PC) PHYSICIAN TELEPHONE 03/03/2020 MEDGEN ( [facility] EVALUATION 21-30 MIN 12:00:00 AM EDT [facility], PC) Documentation of current 08/28/2019 MED GEN ([facility] medications (procedure) 12:00:00 AM EDT PEGGY Oshea) Documentation of current 08/28/2019 MED GEN ([facility] medications (procedure) 12:00:00 AM EDT [facility] PC) Documentation of current 08/28/2019 MED GEN ([facility] medications (procedure) 12:00:00 AM EDT M edical, PC) Documentation of current 08/28/2019 MED GEN ([facility] medications (procedure) 12:00:00 AM EDT edical, PC) Documentation of current 08/28/2019 MED GEN ([facility] medications (procedure) 12:00:00 AM EDT edical, PC) Documentation of current 08/28/2019 MED GEN ([facility] medications (procedure) 12:00:00 AM EDT [facility], PC) Documentation of current 08/28/2019 MED GEN ([facility] medications (procedure) 12:00:00 AM EDT [facility], PC) Documentation of current 08/28/2019 MED GEN ([facility] medications (procedure) 12:00:00 AM EDT [facility], PC) Documentation of current 08/28/2019 MED GEN ([facility] medications (procedure) 12:00:00 AM EDT [facility]) OFFICE OUTPATIENT VISIT 08/28/2019 MEDG EN ([facility] 15 MINUTES 12:00:00 AM [facility]) Documentation of current 08/28/2019 MED GEN ([facility] medications (procedure) 12:00:00 AM EDT [facility], [facility]) Documentation of current 08/28/2019 MED GEN ([facility] medications (procedure) 12:00:00 AM EDT [facility]) Documentation of current 08/28/2019 MED GEN ([facility] medications (procedure) 12:00:00 AM EDT [facility]) Documentation of current 08/28/2019 MED GEN ([facility] medications (procedure) 12:00:00 AM EDT [facility]) Documentation of current 08/28/2019 MED GEN ([facility] medications (procedure) 12:00:00 AM EDT [facility], [facility]) Documentation of current 08/28/2019 MED GEN ([facility] medications (procedure) 12:00:00 AM EDT [facility], [facility]) Documentation of current 08/28/2019 MED GEN ([facility] medications (procedure) 12:00:00 AM EDT [facility], [facility]) Documentation of current 08/28/2019 MED GEN ([facility] medications (procedure) 12:00:00 AM EDT [facility]) Documentation of current 08/28/2019 MED GEN ([facility] medications (procedure) 12:00:00 AM EDT [facility]) OFFICE OUTPATIENT VISIT 08/28/2019 MEDG EN ([facility] 15 MINUTES 12:00:00 AM EDT [facility], [facility]) OFFICE OUTPATIENT VISIT 07/04/2019 MEDG EN ([facility] 15 MINUTES 12:00:00 AM EDT [facility], PC) BLOOD OCCULT PEROXIDASE 07/04/2019 MEDG EN ([facility] ACTV QUAL OTHER SOURCES 12:00:00 AM EDT [facility]) OFFICE OUTPATIENT VISIT 07/04/2019 MEDG EN ([facility] 15 MINUTES 12:00:00 AM EDT [facility], [facility]) BLOOD OCCULT PEROXIDASE 07/04/2019 MEDG EN ([facility] ACTV QUAL OTHER SOURCES 12:00:00 AM EDT [facility]) Documentation of current 06/18/2019 MED GEN ([facility] medications (procedure) 12:00:00 AM EDT [facility]) Documentation of current 06/18/2019 MED GEN ([facility] medications (procedure) 12:00:00 AM EDT [facility]) Documentation of current 06/18/2019 MED GEN ([facility] medications (procedure) 12:00:00 AM EDT [facility]) Documentation of current 06/18/2019 MED GEN ([facility] medications (procedure) 12:00:00 AM EDT [facility]) Documentation of current 06/18/2019 MED GEN ([facility] medications (procedure) 12:00:00 AM EDT [facility]) Documentation of current 06/18/2019 MED GEN ([facility] medications (procedure) 12:00:00 AM EDT [facility]) Documentation of current 06/18/2019 MED GEN ([facility] medications (procedure) 12:00:00 AM EDT [facility]) Documentation of current 06/18/2019 MED GEN ([facility] medications (procedure) 12:00:00 AM EDT [facility]) Documentation of current 06/18/2019 MED GEN ([facility] medications (procedure) 12:00:00 AM EDT [facility]) Documentation of current 06/18/2019 MED GEN ([facility] medications (procedure) 12:00:00 AM EDT [facility]) Documentation of current 06/18/2019 MED GEN ([facility] medications (procedure) 12:00:00 AM EDT [facility]) Documentation of current 06/18/2019 MED GEN ([facility] medications (procedure) 12:00:00 AM EDT [facility]) Documentation of current 06/18/2019 MED GEN ([facility] medications (procedure) 12:00:00 AM EDT [facility]) Documentation of current 06/18/2019 MED GEN ([facility] medications (procedure) 12:00:00 AM EDT [facility]) Documentation of current 06/18/2019 MED GEN ([facility] medications (procedure) 12:00:00 AM EDT [facility]) OFFICE OUTPATIENT VISIT 06/18/2019 MEDG EN ([facility] 15 MINUTES 12:00:00 AM [facility], ) Documentation of current 06/18/2019 MED GEN ([facility] medications (procedure) 12:00:00 AM EDT [facility], [facility]) Documentation of current 06/18/2019 MED GEN ([facility] medications (procedure) 12:00:00 AM EDT [facility], [facility]) Documentation of current 06/18/2019 MED GEN ([facility] medications (procedure) 12:00:00 AM EDT [facility], [facility]) Documentation of current 06/18/2019 MED GEN ([facility] medications (procedure) 12:00:00 AM EDT [facility], [facility]) Documentation of current 06/18/2019 MED GEN ([facility] medications (procedure) 12:00:00 AM EDT [facility], [facility]) Documentation of current 06/18/2019 MED GEN ([facility] medications (procedure) 12:00:00 AM EDT [facility]) Documentation of current 06/18/2019 MED GEN ([facility] medications (procedure) 12:00:00 AM EDT [facility], [facility]) Documentation of current 06/18/2019 MED GEN ([facility] medications (procedure) 12:00:00 AM EDT [facility]) Documentation of current 06/18/2019 MED GEN ([facility] medications (procedure) 12:00:00 AM EDT [facility], ) Documentation of current 06/18/2019 MED GEN ([facility] medications (procedure) 12:00:00 AM EDT [facility]) Documentation of current 06/18/2019 MED GEN ([facility] medications (procedure) 12:00:00 AM EDT [facility], [facility]) Documentation of current 06/18/2019 MED GEN ([facility] medications (procedure) 12:00:00 AM EDT [facility]) Documentation of current 06/18/2019 MED GEN ([facility] medications (procedure) 12:00:00 AM EDT [facility], [facility]) Documentation of current 06/18/2019 MED GEN ([facility] medications (procedure) 12:00:00 AM EDT [facility], [facility]) Documentation of current 06/18/2019 MED GEN ([facility] medications (procedure) 12:00:00 AM EDT [facility], [facility]) OFFICE OUTPATIENT VISIT 06/18/2019 MEDG EN ([facility] 15 MINUTES 12:00:00 AM EDT [facility], [facility]) OFFICE OUTPATIENT VISIT 06/15/2019 MEDG EN ([facility] 15 MINUTES 12:00:00 AM EDT [facility], PC) OFFICE OUTPATIENT VISIT 06/15/2019 MEDG EN ([facility] 15 MINUTES 12:00:00 AM EDT [facility], PC) OFFICE OUTPATIENT VISIT 02/05/2019 MEDG EN ([facility] 15 MINUTES 12:00:00 AM ED [facility], PC) OFFICE OUTPATIENT VISIT 02/05/2019 MEDG EN ([facility] 15 MINUTES 12:00:00 AM EDT [facility], [facility]) Documentation of current 01/17/2019 MED GEN ([facility] medications (procedure) 12:00:00 AM EST [facility]) Documentation of current 01/17/2019 MED GEN ([facility] medications (procedure) 12:00:00 AM EST [facility]) Documentation of current 01/17/2019 MED GEN ([facility] medications (procedure) 12:00:00 AM EST [facility]) Documentation of current 01/17/2019 MED GEN ([facility] medications (procedure) 12:00:00 AM EST [facility]) Documentation of current 01/17/2019 MED GEN ([facility] medications (procedure) 12:00:00 AM [facility]IAL[facility] barajas, PEGGY) Documentation of current 01/17/2019 MED GEN ([facility] medications (procedure) 12:00:00 AM PEGGY Chao) Documentation of current 01/17/2019 MED GEN ([facility] medications (procedure) 12:00:00 AM MARIALUISA barajas, PEGGY) Documentation of current 01/17/2019 MED GEN ([facility] medications (procedure) 12:00:00 AM PEGGY Chao) Documentation of current 01/17/2019 MED GEN ([facility] medications (procedure) 12:00:00 AM [facility]) Documentation of current 01/17/2019 MED GEN ([facility] medications (procedure) 12:00:00 AM PEGGY Chao) Documentation of current 01/17/2019 MED GEN ([facility] medications (procedure) 12:00:00 AM PEGGY Chao) Documentation of current 01/17/2019 MED GEN ([facility] medications (procedure) 12:00:00 AM MARIALUISA barajas, PEGGY) Documentation of current 01/17/2019 MED GEN ([facility] medications (procedure) 12:00:00 AM [facility], [facility]) Documentation of current 01/17/2019 MED GEN ([facility] medications (procedure) 12:00:00 AM PEGGY Chao) OFFICE OUTPATIENT VISIT 01/17/2019 MEDG EN ([facility] 15 MINUTES 12:00:00 AM [facility], [facility]) BLOOD OCCULT PEROXIDASE 01/17/2019 MEDG EN ([facility] ACTV QUAL FECES 1 DETER 12:00:00 AM MARIALUISA barajas, PEGGY) COLLECTION VENOUS BLOOD 01/17/2019 MEDG EN ([facility] VENIPUNCTURE 12:00:00 AM [facility], [facility]) Documentation of current 01/17/2019 MED GEN ([facility] medications (procedure) 12:00:00 AM [facility]) Documentation of current 01/17/2019 MED GEN ([facility] medications (procedure) 12:00:00 AM [facility]) Documentation of current 01/17/2019 MED GEN ([facility] medications (procedure) 12:00:00 AM [facility]) Documentation of current 01/17/2019 MED GEN ([facility] medications (procedure) 12:00:00 AM PEGGY Chao) Documentation of current 01/17/2019 MED GEN ([facility] medications (procedure) 12:00:00 AM PEGGY Chao) Documentation of current 01/17/2019 MED GEN ([facility] medications (procedure) 12:00:00 AM PEGGY Chao) Documentation of current 01/17/2019 MED GEN ([facility] medications (procedure) 12:00:00 AM PEGGY Chao) Documentation of current 01/17/2019 MED GEN ([facility] medications (procedure) 12:00:00 AM PEGGY Chao) Documentation of current 01/17/2019 MED GEN ([facility] medications (procedure) 12:00:00 AM PEGGY Chao) Documentation of current 01/17/2019 MED GEN ([facility] medications (procedure) 12:00:00 AM PEGGY Chao) Documentation of current 01/17/2019 MED GEN ([facility] medications (procedure) 12:00:00 AM PEGGY Chao) Documentation of current 01/17/2019 MED GEN ([facility] medications (procedure) 12:00:00 AM PEGGY Chao) Documentation of current 01/17/2019 MED GEN ([facility] medications (procedure) 12:00:00 AM PEGGY Chao) Documentation of current 01/17/2019 MED GEN ([facility] medications (procedure) 12:00:00 AM PEGGY Chao) OFFICE OUTPATIENT VISIT 01/17/2019 MEDG EN ([facility] 15 MINUTES 12:00:00 AM PEGGY Goss) BLOOD OCCULT PEROXIDASE 01/17/2019 MEDG EN ([facility] ACTV QUAL FECES 1 DETER 12:00:00 AM PEGGY Chao) COLLECTION VENOUS BLOOD 01/17/2019 MEDG EN ([facility] VENIPUNCTURE 12:00:00 AM PEGGY Goss) Documentation of current 12/20/2018 MED GEN ([facility] medications (procedure) 12:00:00 AM PEGGY Chao) Documentation of current 12/20/2018 MED GEN ([facility] medications (procedure) 12:00:00 AM PEGGY Chao) Documentation of current 12/20/2018 MED GEN ([facility] medications (procedure) 12:00:00 AM PEGGY Chao) Documentation of current 12/20/2018 MED GEN ([facility] medications (procedure) 12:00:00 AM PEGGY Chao) Documentation of current 12/20/2018 MED GEN ([facility] medications (procedure) 12:00:00 AM PEGGY Chao) Documentation of current 12/20/2018 MED GEN ([facility] medications (procedure) 12:00:00 AM PEGGY Chao) Documentation of current 12/20/2018 MED GEN ([facility] medications (procedure) 12:00:00 AM PEGGY Chao) Documentation of current 12/20/2018 MED GEN ([facility] medications (procedure) 12:00:00 AM PEGGY Chao) Documentation of current 12/20/2018 MED GEN ([facility] medications (procedure) 12:00:00 AM PEGGY Chao) Documentation of current 12/20/2018 MED GEN ([facility] medications (procedure) 12:00:00 AM MARIALUISA barajas, PEGGY) Documentation of current 12/20/2018 MED GEN ([facility] medications (procedure) 12:00:00 AM PEGGY Chao) Documentation of current 12/20/2018 MED GEN ([facility] medications (procedure) 12:00:00 AM PEGGY Chao) Documentation of current 12/07/2018 MED GEN ([facility] medications (procedure) 12:00:00 AM PEGGY Chao) Documentation of current 12/07/2018 MED GEN ([facility] medications (procedure) 12:00:00 AM PEGGY Chao) Documentation of current 12/07/2018 MED GEN ([facility] medications (procedure) 12:00:00 AM PEGGY Chao) Documentation of current 12/07/2018 MED GEN ([facility] medications (procedure) 12:00:00 AM PEGGY Chao) Documentation of current 12/07/2018 MED GEN ([facility] medications (procedure) 12:00:00 AM PEGGY Chao) OFFICE OUTPATIENT VISIT 12/07/2018 MEDG EN ([facility] 25 MINUTES 12:00:00 AM EST [facility], [facility]) Documentation of current 12/07/2018 MED GEN ([facility] medications (procedure) 12:00:00 AM EST [facility]) Documentation of current 12/07/2018 MED GEN ([facility] medications (procedure) 12:00:00 AM EST [facility]) Documentation of current 12/07/2018 MED GEN ([facility] medications (procedure) 12:00:00 AM EST [facility], [facility]) Documentation of current 12/07/2018 MED GEN ([facility] medications (procedure) 12:00:00 AM EST [facility]) Documentation of current 12/07/2018 MED GEN ([facility] medications (procedure) 12:00:00 AM EST [facility]) OFFICE OUTPATIENT VISIT 12/07/2018 MEDG EN ([facility] 25 MINUTES 12:00:00 AM EST [facility], [facility]) Documentation of current 10/19/2018 MED GEN ([facility] medications (procedure) 12:00:00 AM EST [facility]) Documentation of current 10/19/2018 MED GEN ([facility] medications (procedure) 12:00:00 AM EST [facility], [facility]) Documentation of current 10/19/2018 MED GEN ([facility] medications (procedure) 12:00:00 AM EST [facility]) OFFICE OUTPATIENT VISIT 10/19/2018 MEDG EN ([facility] 25 MINUTES 12:00:00 AM EST [facility], [facility]) Documentation of current 10/19/2018 MED GEN ([facility] medications (procedure) 12:00:00 AM EST [facility]) Documentation of current 10/19/2018 MED GEN ([facility] medications (procedure) 12:00:00 AM EST [facility]) Documentation of current 10/19/2018 MED GEN ([facility] medications (procedure) 12:00:00 AM EST [facility]) OFFICE OUTPATIENT VISIT 10/19/2018 MEDG EN ([facility] 25 MINUTES 12:00:00 AM EST [facility], [facility]) Documentation of current 08/17/2018 MED GEN ([facility] medications (procedure) 12:00:00 AM [facility], [facility]) Documentation of current 08/17/2018 MED GEN ([facility] medications (procedure) 12:00:00 AM EDT [facility]) Documentation of current 08/17/2018 MED GEN ([facility] medications (procedure) 12:00:00 AM T [facility]) ECG ROUTINE ECG W/LEAST 08/17/2018 MEDG EN ([facility] 12 LDS W/I&R 12:00:00 AM [facility], ) COLLECTION VENOUS BLOOD 08/17/2018 MEDG EN ([facility] VENIPUNCTURE 12:00:00 AM [facility], ) Documentation of current 08/17/2018 MED GEN ([facility] medications (procedure) 12:00:00 AM T [facility]) Documentation of current 08/17/2018 MED GEN ([facility] medications (procedure) 12:00:00 AM [facility]) Documentation of current 08/17/2018 MED GEN ([facility] medications (procedure) 12:00:00 AM T [facility]) ECG ROUTINE ECG W/LEAST 08/17/2018 MEDG EN ([facility] 12 LDS W/I&R 12:00:00 AM [facility], ) COLLECTION VENOUS BLOOD 08/17/2018 MEDG EN ([facility] VENIPUNCTURE 12:00:00 AM [facility] [place]) Documentation of current 08/15/2018 MED GEN ([facility] medications (procedure) 12:00:00 AM T [facility], ) Documentation of current 08/15/2018 MED GEN ([facility] medications (procedure) 12:00:00 AM T [facility], ) Documentation of current 08/15/2018 MED GEN ([facility] medications (procedure) 12:00:00 AM T [facility]) OFFICE OUTPATIENT VISIT 08/15/2018 MEDG EN ([facility] 25 MINUTES 12:00:00 AM [facility], ) INFLUENZA VACCINE 08/15/2018 MEDGEN ([facility] 12:00:00 AM [facility], ) IMADM PRQ ID SUBQ/IM NJXS 08/15/2018 ME DGEN ([facility] 1 VACCINE 12:00:00 AM [facility], ) Documentation of current 08/15/2018 MED GEN ([facility] medications (procedure) 12:00:00 AM EDT [facility]) Documentation of current 08/15/2018 MED GEN ([facility] medications (procedure) 12:00:00 AM EDT [facility], ) Documentation of current 08/15/2018 MED GEN ([facility] medications (procedure) 12:00:00 AM EDT [facility]) OFFICE OUTPATIENT VISIT 08/15/2018 MEDG EN ([facility] 25 MINUTES 12:00:00 AM [facility], ) INFLUENZA VACCINE 08/15/2018 MEDGEN ([facility] 12:00:00 AM [facility], ) IMADM PRQ ID SUBQ/IM NJXS 08/15/2018 ME DGEN ([facility] 1 VACCINE 12:00:00 AM [facility] [place]) OFFICE OUTPATIENT VISIT 04/19/2018 MEDG EN ([facility] 25 MINUTES 12:00:00 AM [facility], ) OFFICE OUTPATIENT VISIT 04/19/2018 MEDG EN ([facility] 25 MINUTES 12:00:00 AM [facility], ) Documentation of current 03/15/2018 MED GEN ([facility] medications (procedure) 12:00:00 AM EDT [facility]) Documentation of current 03/15/2018 MED GEN ([facility] medications (procedure) 12:00:00 AM EDT [facility], ) OFFICE OUTPATIENT VISIT 03/15/2018 MEDG EN ([facility] 15 MINUTES 12:00:00 AM [facility], ) Documentation of current 03/15/2018 MED GEN ([facility] medications (procedure) 12:00:00 AM EDT [facility], ) Documentation of current 03/15/2018 MED GEN ([facility] medications (procedure) 12:00:00 AM EDT [facility]) OFFICE OUTPATIENT VISIT 03/15/2018 MEDG EN ([facility] 15 MINUTES 12:00:00 AM [facility], ) OFFICE OUTPATIENT VISIT 02/21/2018 MEDG EN ([facility] 25 MINUTES 12:00:00 AM [facility], ) OFFICE OUTPATIENT VISIT 02/21/2018 MEDG EN ([facility] 25 MINUTES 12:00:00 AM [facility], ) Documentation of current 01/03/2018 MED GEN ([facility] medications (procedure) 12:00:00 AM EST [facility]) OFFICE OUTPATIENT VISIT 01/03/2018 MEDG EN ([facility] 25 MINUTES 12:00:00 AM EST [facility], [facility]) Documentation of current 01/03/2018 MED GEN ([facility] medications (procedure) 12:00:00 AM EST M [facility], PC) OFFICE OUTPATIENT VISIT 01/03/2018 MEDG EN ([facility] 25 MINUTES 12:00:00 AM EST [facility], [facility]) Documentation of current 11/01/2017 MED GEN ([facility] medications (procedure) 12:00:00 AM EST [facility], PC) Documentation of current 11/01/2017 MED GEN ([facility] medications (procedure) 12:00:00 AM EST M [facility], PC) Documentation of current 11/01/2017 MED GEN ([facility] medications (procedure) 12:00:00 AM EST M [facility], PC) OFFICE OUTPATIENT VISIT 11/01/2017 MEDG EN ([facility] 25 MINUTES 12:00:00 AM EST [facility], PC) Documentation of current 11/01/2017 MED GEN ([facility] medications (procedure) 12:00:00 AM EST [facility], PC) Documentation of current 11/01/2017 MED GEN ([facility] medications (procedure) 12:00:00 AM EST [facility], PC) Documentation of current 11/01/2017 MED GEN ([facility] medications (procedure) 12:00:00 AM EST [facility], PC) OFFICE OUTPATIENT VISIT 11/01/2017 MEDG EN ([facility] 25 MINUTES 12:00:00 AM EST [facility], PC) Documentation of current 09/15/2017 MED GEN ([facility] medications (procedure) 12:00:00 AM EDT [facility], PC) Documentation of current 09/15/2017 MED GEN ([facility] medications (procedure) 12:00:00 AM EDT [facility], PC) Documentation of current 09/15/2017 MED GEN ([facility] medications (procedure) 12:00:00 AM EDT [facility], PC) Documentation of current 09/15/2017 MED GEN ([facility] medications (procedure) 12:00:00 AM EDT [facility]) Documentation of current 09/15/2017 MED GEN ([facility] medications (procedure) 12:00:00 AM EDT [facility], ) Documentation of current 09/15/2017 MED GEN ([facility] medications (procedure) 12:00:00 AM EDT [facility]ical, ) COLLECTION VENOUS BLOOD 09/15/2017 [facility] EN [facility] 09/15/2017 MED GEN ([facility] medications (procedure) 12:00:00 AM EDT [facility], ) Documentation of current 09/15/2017 MED GEN ([facility] medications (procedure) [facility]ation of current 09/15/2017 MED GEN ([facility] medications (procedure) 12:00:[facility] Documentation of current 09/15/2017 MED GEN ([facility] medications (procedure) 12:00:00 [facility] Documentation of current 09/15/2017 MED GEN ([facility] medications (procedure) 12:00:00 AM EDT [facility], ) Documentation of current 09/15/2017 MED GEN ([facility] medications (procedure) 12:00:00 AM EDT [facility], ) COLLECTION VENOUS BLOOD 09/15/2017 MEDG EN ([facility] VENIPUNCTURE 12:00:00 AM [facility], ) Documentation of current 04/12/2017 MED GEN ([facility] medications (procedure) 12:00:00 [facility] OFFICE OUTPATIENT VISIT 04/12/2017 MEDG EN ([facility] 15 MINUTES 12:00:00 AM ED Medical, ) Documentation of current 04/12/2017 MED GEN ([facility] medications (procedure) 12:00:00 AM EDT [facility], ) OFFICE OUTPATIENT VISIT 04/12/2017 MEDG EN ([facility] 15 MINUTES 12:00:00 AM ED Medical, ) OFFICE OUTPATIENT VISIT 5 03/17/2017 ME DGEN ([facility] MINUTES 12:00:00 AM EDT Medical, ) OFFICE OUTPATIENT VISIT 5 03/17/2017 [facility] of current 03/10/2017 MED GEN ([facility] medications (procedure) 12:00:00 AM EDT edical, ) Documentation of current 03/10/2017 MED GEN ([facility] medications (procedure) 12:00:00 AM EDT edical, ) Documentation of current 03/10/2017 MED GEN ([facility] medications (procedure) 12:00:00 AM EDT edical, ) Documentation of current 03/10/2017 MED GEN ([facility] medications (procedure) 12:00:[facility] Documentation of current 03/10/2017 MED GEN ([facility] medications (procedure) 12:00:00 AM EDT edical, ) COLLECTION VENOUS BLOOD 03/10/2017 MEDG EN ([facility] VENIPUNCTURE 12:00:00 AM [facility] Medical, ) Documentation of current 03/10/2017 MED GEN ([facility] medications (procedure) 12:00:00 [facility] Documentation of current 03/10/2017 MED GEN ([facility] medications (procedure) 12:00:00 AM EDT edical, ) Documentation of current 03/10/2017 MED GEN ([facility] medications (procedure) 12:00:00 [facility] Documentation of current 03/10/2017 MED GEN ([facility] medications (procedure) 12:00:00 [facility] Documentation of current 03/10/2017 MED GEN ([facility] medications (procedure) 12:00:00 [facility] COLLECTION VENOUS BLOOD 03/10/2017 MEDG EN ([facility] VENIPUNCTURE 12:00:00 AM [facility], ) Results ID Date Data Source [id number] 05/26/2020 12:00:00 AM EDT [facility] ([facility] [employer], ) Name Value Range Interpretation Code Description Data Cony rce(s) Supporting Document(s ) SARS-CoV- Negative Normal (applies to MEDGEN (St 2 non-numeric [facility] Antibody, results) Medical, ) IgG ID Date Data Source [id number] 05/26/2020 12:00:00 AM EDT [facility] ([facility], ) Name Value Range Interpretation Code Description Data Cony rce(s) Supporting Document(s ) SARS-CoV- Negative Normal (applies to MEDGEN (St 2 non-numeric [facility] Antibody, results) Medical, ) IgM ID Date Data Source [id number] 05/26/2020 12:00:00 AM EDT [facility], ) Name Value Range Interpretation Description Data Sup porting Code Source(s) Document(s ) Vitamin D, 33.7 Normal (applies to MEDGEN (St 25-Hydroxy ng/mL non-numeric [facility] results) Medical, PC) ID Date Data Source [id number] 05/26/2020 12:00:00 AM EDT [facility] ([facility], ) Name Value Range Interpretation Code Description Data Cony rce(s) Supporting Document(s ) TSH 2.910 Normal (applies to MEDGEN (St uIU/mL non-numeric results) [facility], ) ID Date Data Source [id number] 05/26/2020 12:00:00 AM EDT [facility] ([facility], ) Name Value Range Interpretation Description Data Sup porting Code Source(s) Document(s ) Hemoglobin A1c 5.0 % Normal (applies to MEDGEN (St in Blood non-numeric [facility]'s results) Medical, ) ID Date Data Source [id number] 05/26/2020 12:00:00 AM EDT [facility] ([facility], ) Name Value Range Interpretation Description Data Sup porting Code Source(s) Document(s ) Specific gravity 1.026 Normal (applies MEDGEN (St of Pericardial to non-numeric [facility]'s fluid by results) Medical, Refractometry PC) pH of Lower 5.0 Normal (applies MEDGEN (St respiratory to non-numeric [facility] specimen results) Medical, PC) Appearance of Cloudy Abnormal (applies MEDGEN ( St Abdomen to non-numeric [facility] results) Medical, PC) Urine-Color Yellow Normal (applies MED[facility] (St to non-numeric [facility] results) Medical, PC) WBC Esterase Negative Normal (applies [facility] (St to non-numeric [facility] results) Medical, PC) Protein Negative Normal (applies MEDGEN (St [Mass/volume] in to non-numeric [facility]'s Lower results) Medical, respiratory PC) specimen Ketones Trace Abnormal (applies MEDGEN (St [Presence] in to non-numeric [facility] Blood by Tablet results) Medical, ) Glucose Negative Normal (applies MEDGEN (St [Mass/volume] in to non-numeric [facility] Urine collected results) [facility], for unspecified PC) duration Occult Blood Negative Normal (applies [facility] (St to non-numeric [facility] results) Medical, ) Bilirubin Negative Normal (applies [facility] (St [Presence] in to non-numeric [facility] Peritoneal fluid results) Medical, ) Urobilinogen,Prince 0.2 mg/dL Normal (applies [facility] (St i-Qn to non-numeric [facility] results) Medical, ) Microscopic Normal (applies [facility] (St Examination to non-numeric [facility] results) Medical, ) Nitrite, Urine Negative Normal (applies [facility] (S t to non-numeric [facility] results) Medical, ) ID Date Data Source [id number] 03/06/2020 12:00:00 AM EDT [facility] ([facility], ) Name Value Range Interpretation Description Data Sup porting Code Source(s) Document(s ) Antinuclear Negative Normal (applies [facility] (St Antibodies, IFA to non-numeric [facility] results) Medical, ) Please Note: Normal (applies [facility] (St to non-numeric [facility] results) Medical, ) ID Date Data Source [id number] 03/06/2020 12:00:00 AM EDT [facility] ([facility], ) Name Value Range Interpretation Description Data Sup porting Code Source(s) Document(s ) Sedimentation 30 mm/hr Normal (applies [facility] (St Rate-Westergren to non-numeric [facility] results) Medical, ) C-Reactive 34 mg/L Above high normal [facility] (St Protein, Quant [facility], ) ID Date Data Source [id number] 03/06/2020 12:00:00 AM EDT [facility] ([facility], ) Name Value Range Interpretation Description Data Sup porting Code Source(s) Document(s ) Glucose 103 Above high [facility] (St [Mass/volume] in mg/dL normal [facility] Urine collected for Medical, unspecified PC) duration Urea nitrogen 21 mg/dL Normal (applies [facility] (St [Mass/volume] in to non-numeric [facility] Serum or Plasma results) Medical, PC) Creatinine 1.01 Normal (applies [facility] (St [Interpretation] in mg/dL to non-numeric [facility] Urine results) Medical, PC) BUN/Creatinine 21 Above high [facility] (St Ratio normal [facility] Medical, PC) Sodium 140 Normal (applies [facility] (St [Moles/volume] in mmol/L to non-numeric [facility] Serum or Plasma results) Medical, PC) Potassium 5.2 Normal (applies [facility] (St [Mass/volume] in mmol/L to non-numeric [facility] Blood results) Medical, PC) Chloride 102 Normal (applies [facility] (St [Moles/volume] in mmol/L to non-numeric [facility] Serum or Plasma results) Medical, ) Carbon dioxide, 25 Normal (applies [facility] ( St total mmol/L to non-numeric [facility] [Moles/volume] in results) Medical, Serum or Plasma PC) Calcium 9.4 Normal (applies [facility] (St [Moles/volume] in mg/dL to non-numeric [facility] Urine collected for results) Medical, unspecified PC) duration Microalbumin 4.4 g/dL Normal (applies [facility] (St [Mass/time] in to non-numeric [facility] Urine collected for results) Medical, unspecified PC) duration Protein 6.4 g/dL Normal (applies [facility] (St [Mass/volume] in to non-numeric [facility] Serum or Plasma results) Medical, ) Globulin, Total 2.0 g/dL Normal (applies [facility] ( St to non-numeric [facility] results) Medical, PC) A/G Ratio 2.2 Normal (applies [facility] (St to non-numeric [facility] results) Medical, PC) Alkaline 90 IU/L Normal (applies [facility] (St phosphatase to non-numeric [facility] [Enzymatic results) Medical, activity/volume] in PC) Serum, Plasma or Blood Bilirubin.total <0.2 Normal (applies [facility] ( St [Mass/volume] in to non-numeric [facility] Serum or Plasma results) Medical, PC) Aspartate 31 IU/L Normal (applies [facility] (St aminotransferase to non-numeric [facility] [Enzymatic results) Medical, activity/volume] in PC) Serum or Plasma Alanine 20 IU/L Normal (applies [facility] (St aminotransferase to non-numeric [facility] [Enzymatic results) Medical, activity/volume] in PC) Serum or Plasma ID Date Data Source [id number] 03/06/2020 12:00:00 AM EDT [facility] ([facility], ) Name Value Range Interpretation Description Data Sup porting Code Source(s) Document(s ) Leukocytes 6.4 Normal (applies [facility] (St [#/volume] in x10E3/uL to non-numeric [facility] Blood by results) Medical, ) Automated count Erythrocytes 4.15 Normal (applies [facility] (St [#/volume] in x10E6/uL to non-numeric [facility] Blood by results) Medical, ) Automated count Hemoglobin 13.3 Normal (applies [facility] (St [Mass/volume] in g/dL to non-numeric [facility] Blood results) Medical, ) Hematocrit 39.4 % Normal (applies [facility] (St [Volume to non-numeric [facility] Fraction] of results) Medical, ) Blood by Automated count MCV 95 fL Normal (applies [facility] (St to non-numeric [facility] results) Medical, ) MCH 32.0 pg Normal (applies [facility] (St to non-numeric [facility] results) Medical, ) MCHC 33.8 Normal (applies [facility] (St g/dL to non-numeric [facility] results) Medical, ) RDW 12.4 % Normal (applies [facility] (St to non-numeric [facility] results) Medical, ) Platelets 198 Normal (applies [facility] (St [#/area] in x10E3/uL to non-numeric [facility] Blood by results) Medical, ) Microscopy high power field Neutrophils [#] 61 % Normal (applies [facility] ( St in Body fluid by to non-numeric [facility] Manual count results) Medical, ) Lymphs 25 % Normal (applies [facility] (St to non-numeric [facility] results) Medical, ) Monocytes 9 % Normal (applies [facility] (St [#/volume] in to non-numeric [facility] Cord blood results) Medical, ) Eos 4 % Normal (applies [facility] (St to non-numeric [facility] results) Medical, ) Basos 1 % Normal (applies [facility] (St to non-numeric [facility] results) Medical, ) Neutrophils 3.9 Normal (applies [facility] (St (Absolute) x10E3/uL to non-numeric [facility] results) Medical, ) Lymphs 1.6 Normal (applies [facility] (St (Absolute) x10E3/uL to non-numeric [facility] results) Medical, ) Monocytes(Absolu 0.6 Normal (applies [facility] (St te) x10E3/uL to non-numeric [facility] results) Medical, ) Eos (Absolute) 0.3 Normal (applies [facility] (S t x10E3/uL to non-numeric [facility] results) Medical, ) Immature 0 % Normal (applies [facility] (St Granulocytes to non-numeric [facility] results) Medical, ) Baso (Absolute) 0.0 Normal (applies [facility] ( St x10E3/uL to non-numeric [facility] results) Medical, ) Immature Grans 0.0 Normal (applies [facility] (S t (Abs) x10E3/uL to non-numeric [facility] results) Medical, ) ID Date Data Source [id number] 03/06/2020 12:00:00 AM EDT [facility] ([facility], ) Name Value Range Interpretation Code Description Data Cony rce(s) Supporting Document(s ) RA Latex <10.0 Normal (applies to [facility] (St Turbid. non-numeric [facility] results) Medical, ) Sjogren`s <0.2 Normal (applies to [facility] (St Anti-SS-A non-numeric [facility] results) Medical, ) Sjogren`s 0.2 AI Normal (applies to [facility] (St Anti-SS-B non-numeric [facility] results) Medical, ) ID Date Data Source [id number] 03/06/2020 12:00:00 AM EDT [facility] ([facility], ) Name Value Range Interpretation Description Data Sup porting Code Source(s) Document(s ) Antinuclear Negative Normal (applies [facility] (St Antibodies, IFA to non-numeric [facility] results) [facility], ) ID Date Data Source [id number] 03/06/2020 12:00:00 AM EDT [facility] ([facility], ) Name Value Range Interpretation Description Data Sup porting Code Source(s) Document(s ) Sedimentation 30 mm/hr Normal (applies [facility] (St Rate-Westergren to non-numeric [facility] results) Medical, ) C-Reactive 34 mg/L Above high normal [facility] (St Protein, Quant [facility], ) ID Date Data Source [id number] 03/06/2020 12:00:00 AM EDT [facility] ([facility], ) Name Value Range Interpretation Description Data Sup porting Code Source(s) Document(s ) Glucose 103 Above high [facility] (St [Mass/volume] in mg/dL normal [facility] Urine collected for Medical, unspecified PC) duration Urea nitrogen 21 mg/dL Normal (applies [facility] (St [Mass/volume] in to non-numeric [facility] Serum or Plasma results) Medical, ) Creatinine 1.01 Normal (applies [facility] (St [Interpretation] in mg/dL to non-numeric [facility] Urine results) Medical, ) BUN/Creatinine 21 Above high [facility] (St Ratio normal [facility], ) Sodium 140 Normal (applies [facility] (St [Moles/volume] in mmol/L to non-numeric [facility] Serum or Plasma results) Medical, ) Potassium 5.2 Normal (applies [facility] (St [Mass/volume] in mmol/L to non-numeric [facility] Blood results) Medical, ) Chloride 102 Normal (applies [facility] (St [Moles/volume] in mmol/L to non-numeric [facility] Serum or Plasma results) Medical, ) Calcium 9.4 Normal (applies [facility] (St [Moles/volume] in mg/dL to non-numeric [facility] Urine collected for results) Medical, unspecified PC) duration Carbon dioxide, 25 Normal (applies [facility] ( St total mmol/L to non-numeric [facility] [Moles/volume] in results) Medical, Serum or Plasma PC) Protein 6.4 g/dL Normal (applies [facility] (St [Mass/volume] in to non-numeric [facility] Serum or Plasma results) Medical, ) Globulin, Total 2.0 g/dL Normal (applies [facility] ( St to non-numeric [facility] results) Medical, ) Microalbumin 4.4 g/dL Normal (applies [facility] (St [Mass/time] in to non-numeric [facility] Urine collected for results) Medical, unspecified PC) duration A/G Ratio 2.2 Normal (applies [facility] (St to non-numeric [facility] results) Medical, ) Alkaline 90 IU/L Normal (applies [facility] (St phosphatase to non-numeric [facility] [Enzymatic results) Medical, activity/volume] in ) Serum, Plasma or Blood Bilirubin.total <0.2 Normal (applies [facility] ( St [Mass/volume] in to non-numeric [facility] Serum or Plasma results) Medical, ) Aspartate 31 IU/L Normal (applies [facility] (St aminotransferase to non-numeric [facility] [Enzymatic results) Medical, activity/volume] in PC) Serum or Plasma Alanine 20 IU/L Normal (applies [facility] (St aminotransferase to non-numeric [facility] [Enzymatic results) Medical, activity/volume] in ) Serum or Plasma ID Date Data Source [id number] 03/06/2020 12:00:00 AM EDT [facility] ([facility], ) Name Value Range Interpretation Description Data Sup porting Code Source(s) Document(s ) Leukocytes 6.4 Normal (applies [facility] (St [#/volume] in x10E3/uL to non-numeric [facility] Blood by results) Medical, ) Automated count Erythrocytes 4.15 Normal (applies [facility] (St [#/volume] in x10E6/uL to non-numeric [facility] Blood by results) Medical, ) Automated count Hemoglobin 13.3 Normal (applies [facility] (St [Mass/volume] in g/dL to non-numeric [facility] Blood results) Medical, ) MCV 95 fL Normal (applies [facility] (St to non-numeric [facility] results) Medical, ) Hematocrit 39.4 % Normal (applies [facility] (St [Volume to non-numeric [facility] Fraction] of results) Medical, ) Blood by Automated count MCH 32.0 pg Normal (applies [facility] (St to non-numeric [facility] results) Medical, ) MCHC 33.8 Normal (applies [facility] (St g/dL to non-numeric [facility] results) Medical, ) RDW 12.4 % Normal (applies [facility] (St to non-numeric [facility] results) Medical, ) Platelets 198 Normal (applies [facility] (St [#/area] in x10E3/uL to non-numeric [facility] Blood by results) [facility], ) Microscopy high power field Neutrophils [#] 61 % Normal (applies [facility] ( St in Body fluid by to non-numeric [facility] Manual count results) [facility], ) Lymphs 25 % Normal (applies [facility] (St to non-numeric [facility] results) [facility], ) Monocytes 9 % Normal (applies [facility] (St [#/volume] in to non-numeric [facility] Cord blood results) [facility], ) Eos 4 % Normal (applies [facility] (St to non-numeric [facility] results) [facility], ) Neutrophils 3.9 Normal (applies [facility] (St (Absolute) x10E3/uL to non-numeric [facility] results) [facility], ) Basos 1 % Normal (applies [facility] (St to non-numeric [facility] results) [facility], ) Lymphs 1.6 Normal (applies [facility] (St (Absolute) x10E3/uL to non-numeric [facility] results) [facility], ) Monocytes(Absolu 0.6 Normal (applies [facility] (St te) x10E3/uL to non-numeric [facility] results) [facility], ) Baso (Absolute) 0.0 Normal (applies [facility] ( St x10E3/uL to non-numeric [facility] results) [facility], ) Eos (Absolute) 0.3 Normal (applies [facility] (S t x10E3/uL to non-numeric [facility] results) [facility], ) Immature 0 % Normal (applies [facility] (St Granulocytes to non-numeric [facility] results) [facility], ) Immature Grans 0.0 Normal (applies [facility] (S t (Abs) x10E3/uL to non-numeric [facility] results) [facility], ) ID Date Data Source [id number] 03/06/2020 12:00:00 AM EDT [facility], ) Name Value Range Interpretation Code Description Data Cony rce(s) Supporting Document(s ) RA Latex <10.0 Normal (applies to [facility] (St Turbid. non-numeric [facility] results) Medical, ) Sjogren`s <0.2 Normal (applies to [facility] (St Anti-SS-A non-numeric [facility] results) Medical, ) Sjogren`s 0.2 AI Normal (applies to [facility] (St Anti-SS-B non-numeric [facility] results) Medical, ) ID Date Data Source [id number] 11/24/2019 05:30:00 AM MARIALUISA Garner [facility] -0500 Name Value Range Interpretation Description Data Sup porting Code Source(s) Document(s ) Cannabinoids <content [facility] [Presence] in styleCode="[facility] Urine by Screen d">Cannabinoid Medical method >50 ng/mL s Center </content>NEGA TIVE NG/ML (Reference Range: not available)<br/ > ID Date Data Source Liver 11/23/2019 11:55:00 AM [facility] Profile.[id number] Name Value Range Interpretation Description Data Sup porting Code Source(s) Document(s ) Alanine 7-50 Above high <content [facility] aminotransferase normal styleCode="Bold"> Ajay hs [Enzymatic Alanine Medical activity/volume] Aminotransferase Center in Serum or Plasma (ALT) </content>73 IU/L H<content styleCode="Italic s"> (7-50 IU/L)</content> Aspartate 17-59 Above high <content [facility] aminotransferase normal styleCode="Bold"> Ajay hs [Enzymatic Aspartate Medical activity/volume] Aminotransferase Center in Serum or Plasma (AST) </content>129 IU/L H<content styleCode="Italic s"> (17-59 IU/L)</content> Bilirubin.total 0.2-1.3 <content [facility] [Mass/volume] in styleCode="Bold"> Ajay hs Serum or Plasma Bilirubin Total Medical </content>0.6 Center MG/DL<content styleCode="Italic s"> (0.2-1.3 MG/DL)</content> UNK 0.0-0.3 <content [facility] styleCode="Bold"> Nito Bilirubin, Direct Medical </content>< 0.2 Center MG/DL<content styleCode="Italic s"> (0.0-0.3 MG/DL)</content> Albumin 3.5-5.0 <content [facility] [Mass/volume] in styleCode="Bold"> Ajay hs Serum or Plasma Albumin Medical </content>3.8 Center G/DL<content styleCode="Italic s"> (3.5-5.0 G/DL)</content> Alkaline 38-126 <content [facility] phosphatase styleCode="Bold"> Nito [Enzymatic Alkaline Medical activity/volume] Phosphatase (ALP) Cente r in Serum or Plasma </content>104 IU/L<content styleCode="Italic s"> (38-126 IU/L)</content> ID Date Data Source [id number] 11/23/2019 11:55:00 AM MARIALUISA Garner [facility] 0500 Name Value Range Interpretation Description Data Sup porting Code Source(s) Document(s ) Erythrocytes 4.4-5.9 Below low normal <content [facility] [#/volume] in styleCode="Bold Nito Blood by ">Red Blood Medical Automated count Cell Count Center </content>3.77 MCUMM L<content styleCode="Ital ics"> (4.4-5.9 MCUMM)</content > Leukocytes 4.4-11.0 <content [facility] [#/volume] in styleCode="Bold Nito Blood by ">White Blood Medical Automated count Cell Count Center </content>5.30 KCUMM<content styleCode="Ital ics"> (4.4-11.0 KCUMM)</content > Erythrocyte mean 80.0-100 <content [facility] corpuscular .0 styleCode="Bold Nito volume [Entitic ">Mean Medical volume] by Corpuscular Center Automated count Volume </content>91.8 FL<content styleCode="Ital ics"> (80.0-100.0 FL)</content> Hemoglobin 13.5-17. Below low normal <content [facility] [Mass/volume] in 5 styleCode="Bold Nito Blood ">Hemoglobin Medical </content>11.8 Center G/DL L<content styleCode="Ital ics"> (13.5-17.5 G/DL)</content> Hematocrit 41.0-53. Below low normal <content [facility] [Volume 0 styleCode="Bold Nito Fraction] of ">Hematocrit Medical Blood by </content>34.6 Center Automated count % L<content styleCode="Ital ics"> (41.0-53.0 %)</content> Erythrocyte mean 26.0-34. <content [facility] corpuscular 0 styleCode="Bold Nito hemoglobin ">Mean Medical [Entitic mass] Corposcular Center by Automated Hemoglobin count </content>31.3 PG<content styleCode="Ital ics"> (26.0-34.0 PG)</content> Platelet mean 8.0-11.0 <content [facility] volume [Entitic styleCode="Bold Nito volume] in Blood ">Mean Platelet Medical by Automated Volume Center count </content>10.6 FL<content styleCode="Ital ics"> (8.0-11.0 FL)</content> Platelets 130-400 Below low normal <content [facility] [#/volume] in styleCode="Bold Nito Blood by ">Platelet Medical Automated count Count Center </content>113 KCUMM L<content styleCode="Ital ics"> (130-400 KCUMM)</content > Erythrocyte mean 32.0-37. <content [facility] corpuscular 0 styleCode="Bold Nito hemoglobin ">Mean Corpus. Medical concentration Hgb Center [Mass/volume] by Concentration Automated count (MCHC) </content>34.1 G/DL<content styleCode="Ital ics"> (32.0-37.0 G/DL)</content> Erythrocyte 11.5-14. <content [facility] distribution 5 styleCode="Bold Nito width [Ratio] by ">Red Cell Medical Automated count Distribution Center Width </content>12.9 %<content styleCode="Ital ics"> (11.5-14.5 %)</content> UNK 0.0 <content Saint styleCode="Bold Nito ">Nucleated Red Medical Blood Cell Center Count </content>0.00 KCUMM<content styleCode="Ital ics"> (0.0 KCUMM)</content > UNK 0 <content Saint styleCode="Bold Nito ">Nucleated Red Medical Blood Cell Center </content>0.0 /100<content styleCode="Ital ics"> (0 /100)</content> ID Date Data Source GFR(Creatinine).[id number] 11/23/2019 11:55:[address] [facility] 0-0500 Name Value Range Interpretation Code Description Data Cony rce(s) Supporting Document(s ) UNK > 60 <content [facility] styleCode="Bold"> Medical Cent er EGFR </content>148 GFR<content styleCode="Italic s"> (> 60 GFR)</content> ID Date Data Source [id number] 11/23/2019 11:55:00 AM EST [facility] Name Value Range Interpretation Description Data Sup porting Code Source(s) Document(s ) Potassium 3.5-5.3 <content [facility] [Moles/volume] in styleCode="Bold"> Yash phs Serum or Plasma Potassium Medical </content>4.1 Center MEQ/L<content styleCode="Italic s"> (3.5-5.3 MEQ/L)</content> Sodium 137-145 <content [facility] [Moles/volume] in styleCode="Bold"> Yash [facility] Serum or Plasma Sodium Medical </content>140 Center MEQ/L<content styleCode="Italic s"> (137-145 MEQ/L)</content> Chloride 98-107 <content [facility] [Moles/volume] in styleCode="Bold"> Yash phs Serum or Plasma Chloride Medical </content>102 Center MEQ/L<content styleCode="Italic s"> (98-107 MEQ/L)</content> Creatinine 0.5-1.3 <content [facility] [Mass/volume] in styleCode="Bold"> Ajay hs Serum or Plasma Creatinine Medical </content>0.6 Center MG/DL<content styleCode="Italic s"> (0.5-1.3 MG/DL)</content> Carbon dioxide, 22-30 Above high <content [facility] total normal styleCode="Bold"> Nito [Moles/volume] in Carbon Dioxide Medical Serum or Plasma </content>31 Center MEQ/L H<content styleCode="Italic s"> (22-30 MEQ/L)</content> UNK 9-20 <content [facility] styleCode="Bold"> Nito BUN </content>12 Medical MG/DL<content Center styleCode="Italic s"> (9-20 MG/DL)</content> Calcium 8.4-10. <content [facility] [Mass/volume] in 2 styleCode="Bold"> Ajay hs Serum or Plasma Calcium Medical </content>9.3 Center MG/DL<content styleCode="Italic s"> (8.4-10.2 MG/DL)</content> Glucose 74-106 <content [facility] [Mass/volume] in styleCode="Bold"> Ajay hs Serum or Plasma Glucose Medical </content>98 Center MG/DL<content styleCode="Italic s"> (74-106 MG/DL)</content> UNK > 60 <content [facility] styleCode="Bold"> Nito EGFR Medical </content>148 Center GFR<content styleCode="Italic s"> (> 60 GFR)</content> Alanine 7-50 Above high <content [facility] aminotransferase normal styleCode="Bold"> Ajay hs [Enzymatic Alanine Medical activity/volume] Aminotransferase Center in Serum or Plasma (ALT) </content>73 IU/L H<content styleCode="Italic s"> (7-50 IU/L)</content> Aspartate 17-59 Above high <content [facility] aminotransferase normal styleCode="Bold"> Ajay hs [Enzymatic Aspartate Medical activity/volume] Aminotransferase Center in Serum or Plasma (AST) </content>129 IU/L H<content styleCode="Italic s"> (17-59 IU/L)</content> Albumin 3.5-5.0 <content [facility] [Mass/volume] in styleCode="Bold"> Ajay hs Serum or Plasma Albumin Medical </content>3.8 Center G/DL<content styleCode="Italic s"> (3.5-5.0 G/DL)</content> Alkaline 38-126 <content [facility] phosphatase styleCode="Bold"> Nito [Enzymatic Alkaline Medical activity/volume] Phosphatase (ALP) Cente r in Serum or Plasma </content>104 IU/L<content styleCode="Italic s"> (38-126 IU/L)</content> Bilirubin.total 0.2-1.3 <content [facility] [Mass/volume] in styleCode="Bold"> Ajay hs Serum or Plasma Bilirubin Total Medical </content>0.6 Center MG/DL<content styleCode="Italic s"> (0.2-1.3 MG/DL)</content> ID Date Data Source [id number] 11/23/2019 11:40:00 AM EST [facility] 500 Name Value Range Interpretation Description Data Sup porting Code Source(s) Document(s ) UNK <item><content styleCode="Kelly Beauchamp d">Culture Medical Report Center </content><br/ ><table><tbody ><tr><td>Speci men Number:</td><t d>[id number]</t d></tr><tr><td >Sample Collection Date/Time: </td><td>2019 11:40 AM</td></tr><t r><td>Specimen Source:</td><t d>THROAT</td>< /tr><tr><td>Th roat-Nose Culture:</td>< td>Collection Plate Date: 11/23/2019 11:50 </td></tr><tr> <td>Culture Status:</td><t d>Final </td></tr><tr> <td>Culture Report:</td><t d>NEGATIVE FOR BETA HEMOLYTIC STREPTOCOCCI </td></tr></tb leonard></table></ item> UNK <item[facility]Culture Medical Status Center </content><br/ ><table><tbody ><tr><td>Speci men Number:</td><t d>[id number]</t d></tr><tr><td >Sample Collection Date/Time: </td><td>2019 11:40 AM</td></tr><t r><td>Specimen Source:</td><t d>THROAT</td>< /tr><tr><td>Cu lture Report:</td><t d>NEGATIVE FOR BETA HEMOLYTIC STREPTOCOCCI </td></tr><tr> <td>Throat-Nos e Culture:</td>< td>Collection Plate Date: 11/23/2019 11:50 </td></tr><tr> <td>Culture Status:</td><t d>Final </td></tr></tb leonard></table></ item> Streptococcus NEGATIVE <item><content [facility] pyogenes Ag styleCode="Kelly Beauchamp [Presence] in d">Rapid Strep Medical Unspecified A Center specimen by </content><br/ Immunoassay ><table><tbody ><tr><td>Speci men Number:</td><t d>[id number]</t d></tr><tr><td >Sample Collection Date/Time: </td><td>2019 11:40 AM</td></tr><t r><td>Specimen Source:</td><t d>THROAT</td>< /tr><tr><td>Ra pid Strep A:</td><td>NEG ATIVE </td></tr></tb leonard></table></ item> ID Date Data Source [id number] 06/18/2019 12:00:00 AM EDT [employer] ([facility], ) Name Value Range Interpretation Code Description Data Cony rce(s) Supporting Document(s ) Result 1 Normal (applies to [facility] (St non-numeric results) [facility] ) ID Date Data Source [id number] 06/18/2019 12:00:00 AM EDT [facility] ([facility], ) Name Value Range Interpretation Description Data Sup porting Code Source(s) Document(s ) Urine Final Normal ([facility] (St Culture, report non-numeric [facility] Routine results) Medical, ) ID Date Data Source [id number] 06/18/2019 12:00:00 AM EDT [facility] Name Value Range Interpretation Description Data Sup porting Code Source(s) Document(s ) Specific gravity 1.021 Normal (applies [facility] (St of Pericardial to non-numeric [facility] fluid by results) Medical, Refractometry PC) pH of Lower 7.0 Normal (applies [facility] (St respiratory to non-numeric [facility] specimen results) Medical, ) Urine-Color Yellow Normal (applies [facility] (St to non-numeric [facility] results) Medical, PC) WBC Esterase Negative Normal (applies [facility] (St to non-numeric [facility] results) Medical, PC) Appearance of Clear Normal (applies [facility] (St Abdomen to non-numeric [facility] results) Medical, PC) Protein Negative Normal (applies [facility] (St [Mass/volume] in to non-numeric [facility] Lower results) Medical, respiratory PC) specimen Glucose Negative Normal (applies [facility] (St [Mass/volume] in to non-numeric [facility] Urine collected results) Medical, for unspecified PC) duration Ketones Negative Normal (applies [facility] (St [Presence] in to non-numeric [facility] Blood by Tablet results) Medical, ) Occult Blood Negative Normal (applies [facility] (St to non-numeric [facility] results) [facility], [facility]) Bilirubin Negative Normal (applies [facility] (St [Presence] in to non-numeric [facility] Peritoneal fluid results) Medical, ) Urobilinogen,Prince 0.2 mg/dL Normal (applies [facility] (St i-Qn to non-numeric [facility] results) [facility], PC) Nitrite, Urine Negative Normal (applies [facility] (S t to non-numeric [facility] results) [facility], [facility]) Microscopic Normal (applies [facility] (St Examination to non-numeric [facility] results) [facility], ) ID Date Data Source [id number] 06/18/2019 12:00:00 AM EDT [facility] Name Value Range Interpretation Code Description Data Cony rce(s) Supporting Document(s ) Lyme IgG/IgM <0.91 Normal (applies to [facility] ( St Ab non-numeric [facility] results) [facility], PC) Lyme Disease <0.80 Normal (applies to [facility] ( St Ab, Quant, non-numeric [facility] IgM results) [facility], PC) ID Date Data Source [id number] 06/18/2019 12:00:00 AM EDT [facility], ) Name Value Range Interpretation Code Description Data Cony rce(s) Supporting Document(s ) ID Date Data Source [id number] 06/18/2019 12:00:00 AM EDT [facility] ([facility], ) Name Value Range Interpretation Description Data Sup porting Code Source(s) Document(s ) Urine Final Normal (applies to [facility] (St Culture, report non-numeric [facility] Routine results) Medical, PC) ID Date Data Source [id number] 06/18/2019 12:00:00 AM EDT [facility] ([facility], ) Name Value Range Interpretation Description Data Sup porting Code Source(s) Document(s ) Specific gravity 1.021 Normal (applies [facility] (St of Pericardial to non-numeric [facility] fluid by results) Medical, Refractometry PC) pH of Lower 7.0 Normal (applies [facility] (St respiratory to non-numeric [facility] specimen results) Medical, PC) Urine-Color Yellow Normal (applies [facility] (St to non-numeric [facility] results) [facility], PC) WBC Esterase Negative Normal (applies [facility] (St to non-numeric [facility] results) [facility], PC) Appearance of Clear Normal (applies [facility] (St Abdomen to non-numeric [facility] results) [facility], PC) Protein Negative Normal (applies [facility] (St [Mass/volume] in to non-numeric [facility] Lower results) Medical, respiratory PC) specimen Ketones Negative Normal (applies [facility] (St [Presence] in to non-numeric [facility] Blood by Tablet results) Medical, PC) Glucose Negative Normal (applies [facility] (St [Mass/volume] in to non-numeric [facility] Urine collected results) Medical, for unspecified PC) duration Occult Blood Negative Normal (applies [facility] (St to non-numeric [facility] results) [facility], PC) Urobilinogen,Prince 0.2 mg/dL Normal (applies [facility] (St i-Qn to non-numeric [facility] results) [facility], PC) Bilirubin Negative Normal (applies [facility] (St [Presence] in to non-numeric [facility] Peritoneal fluid results) Medical, PC) Nitrite, Urine Negative Normal (applies [facility] (S t to non-numeric [facility] results) [facility], ) ID Date Data Source [id number] 06/18/2019 12:00:00 AM EDT [facility] ([facility], ) Name Value Range Interpretation Code Description Data Cony rce(s) Supporting Document(s ) Lyme IgG/IgM <0.91 Normal (applies to [facility] ( St Ab non-numeric [facility] results) [facility], ) Lyme Disease <0.80 Normal (applies to [facility] ( St Ab, Quant, non-numeric [facility] IgM results) Medical, ) ID Date Data Source [id number] 06/15/2019 12:00:00 AM EDT [facility], ) Name Value Range Interpretation Code Description Data Cony rce(s) Supporting Document(s ) RPR Non Reactive Normal (applies to [facility] ( St non-numeric [facility] results) [facility], ) ID Date Data Source [id number] 06/15/2019 12:00:00 AM EDT [facility], ) Name Value Range Interpretation Code Description Data Cony rce(s) Supporting Document(s ) TSH 3.160 Normal (applies to [facility] (St uIU/mL non-numeric results) [facility]) ID Date Data Source [id number] 06/15/2019 12:00:00 AM EDT [facility] ([facility], ) Name Value Range Interpretation Description Data Sup porting Code Source(s) Document(s ) Hemoglobin 5.4 % Normal (applies to [facility] (St A1c/Hemoglobin. non-numeric [facility] total in Blood results) [facility], ) ID Date Data Source [id number] 06/15/2019 12:00:00 AM EDT [facility], ) Name Value Range Interpretation Description Data Sup porting Code Source(s) Document(s ) Vitamin B12 338 pg/mL Normal (applies to [facility] (S t non-numeric [facility] results) [facility], ) Folate 10.4 Normal (applies to [facility] (St (Folic ng/mL non-numeric [facility] Acid), Serum results) [facility], ) ID Date Data Source [id number] 06/15/2019 12:00:00 AM EDT [facility], ) Name Value Range Interpretation Description Data Sup porting Code Source(s) Document(s ) Prostate 0.7 ng/mL Normal (applies to [facility] (St Specific Ag, non-numeric [facility] Serum results) Medical, ) PSA, Free 0.16 Normal (applies to [facility] (St ng/mL non-numeric [facility] results) Medical, ) % Free PSA 22.9 % Normal (applies to [facility] (St non-numeric [facility] results) Medical, ) ID Date Data Source [id number] 06/15/2019 12:00:00 AM EDT [facility], ) Name Value Range Interpretation Description Data Sup porting Code Source(s) Document(s ) Glucose 100 mg/dL Above high normal [facility] (St [Mass/volume] [facility] in Urine Medical, ) collected for unspecified duration Urea nitrogen 25 mg/dL Above high normal [facility] ( St [Mass/volume] [facility] in Serum or Medical, ) Plasma Creatinine 0.93 Normal (applies [facility] (St [Interpretation mg/dL to non-numeric [facility] ] in Urine results) Medical, ) eGFR If 91 Normal (applies [facility] (St NonAfricn Am mL/min/1. to non-numeric [facility] 73 results) Medical, ) eGFR If Africn 106 Normal (applies [facility] (S t Am mL/min/1. to non-numeric [facility] 73 results) Medical, ) BUN/Creatinine 27 Above high normal [facility] (St Ratio [facility], ) Sodium 136 Normal (applies [facility] (St [Moles/volume] mmol/L to non-numeric [facility] in Serum or results) Medical, PC) Plasma Potassium 4.2 Normal (applies [facility] (St [Mass/volume] mmol/L to non-numeric [facility] in Blood results) Medical, ) Chloride 100 Normal (applies [facility] (St [Moles/volume] mmol/L to non-numeric [facility] in Serum or results) Medical, ) Plasma Carbon dioxide, 21 mmol/L Normal (applies [facility] ( St total to non-numeric [facility] [Moles/volume] results) Medical, ) in Serum or Plasma Calcium 9.1 mg/dL Normal (applies [facility] (St [Moles/volume] to non-numeric [facility] in Urine results) [facility], ) collected for unspecified duration ID Date Data Source [id number] 06/15/2019 12:00:00 AM EDT [facility] ([facility], ) Name Value Range Interpretation Description Data Sup porting Code Source(s) Document(s ) Leukocytes 6.8 Normal (applies [facility] (St [#/volume] in x10E3/uL to non-numeric [facility] Blood by results) Medical, ) Automated count Erythrocytes 4.03 Below low normal [facility] (St [#/volume] in x10E6/uL [facility] Blood by [facility], ) Automated count Hemoglobin 12.7 Below low normal [facility] (St [Mass/volume] in g/dL [facility] Blood [facility], ) MCV 92 fL Normal (applies [facility] (St to non-numeric [facility] results) [facility], ) Hematocrit 37.2 % Below low normal [facility] (St [Volume [facility] Fraction] of [facility], ) Blood by Automated count MCH 31.5 pg Normal (applies [facility] (St to non-numeric [facility] results) [facility], ) MCHC 34.1 Normal (applies [facility] (St g/dL to non-numeric [facility] results) [facility], ) RDW 13.8 % Normal (applies [facility] (St to non-numeric [facility] results) [facility], ) Platelets 175 Normal (applies [facility] (St [#/area] in x10E3/uL to non-numeric [facility] Blood by results) [facility], ) Microscopy high power field Neutrophils [#] 59 % Normal (applies [facility] ( St in Body fluid by to non-numeric [facility] Manual count results) [facility], ) Monocytes 9 % Normal (applies [facility] (St [#/volume] in to non-numeric [facility] Cord blood results) [facility], ) Lymphs 31 % Normal (applies [facility] (St to non-numeric [facility] results) [facility], ) Basos 0 % Normal (applies [facility] (St to non-numeric [facility] results) Medical, ) Eos 1 % Normal (applies [facility] (St to non-numeric [facility] results) [facility], ) Neutrophils 4.0 Normal (applies [facility] (St (Absolute) x10E3/uL to non-numeric [facility] results) Medical, ) Lymphs 2.1 Normal (applies [facility] (St (Absolute) x10E3/uL to non-numeric [facility] results) Medical, ) Eos (Absolute) 0.1 Normal (applies [facility] (S t x10E3/uL to non-numeric [facility] results) Medical, ) Monocytes(Absolu 0.6 Normal (applies [facility] (St te) x10E3/uL to non-numeric [facility] results) Medical, ) Baso (Absolute) 0.0 Normal (applies [facility] ( St x10E3/uL to non-numeric [facility] results) Medical, ) Immature 0 % Normal (applies [facility] (St Granulocytes to non-numeric [facility] results) Medical, ) Immature Grans 0.0 Normal (applies [facility] (S t (Abs) x10E3/uL to non-numeric [facility] results) Medical, ) ID Date Data Source [id number] 06/15/2019 12:00:00 AM EDT [facility] ([facility], ) Name Value Range Interpretation Code Description Data Cony rce(s) Supporting Document(s ) RPR Non Reactive Normal (applies to [facility] ( St non-numeric [facility] results) [facility], ) ID Date Data Source [id number] 06/15/2019 12:00:00 AM EDT [facility] ([facility], ) Name Value Range Interpretation Code Description Data Cony rce(s) Supporting Document(s ) TSH 3.160 Normal (applies to [facility] (St uIU/mL non-numeric results) [facility], ) ID Date Data Source [id number] 06/15/2019 12:00:00 AM EDT [facility] ([facility], ) Name Value Range Interpretation Description Data Sup porting Code Source(s) Document(s ) Hemoglobin 5.4 % Normal (applies to [facility] (St A1c/Hemoglobin. non-numeric [facility] total in Blood results) [facility], ) ID Date Data Source [id number] 06/15/2019 12:00:00 AM EDT [facility] ([facility], ) Name Value Range Interpretation Description Data Sup porting Code Source(s) Document(s ) Vitamin B12 338 pg/mL Normal (applies to [facility] (S t non-numeric [facility] results) Medical, ) Folate 10.4 Normal (applies to [facility] (St (Folic ng/mL non-numeric [facility] Acid), Serum results) Medical, ) ID Date Data Source [id number] 06/15/2019 12:00:00 AM EDT [facility] ([facility], ) Name Value Range Interpretation Description Data Sup porting Code Source(s) Document(s ) PSA, Free 0.16 Normal (applies to [facility] (St ng/mL non-numeric [facility] results) Medical, ) Prostate 0.7 ng/mL Normal (applies to [facility] (St Specific Ag, non-numeric [facility] Serum results) Medical, ) % Free PSA 22.9 % Normal (applies to [facility] (St non-numeric [facility] results) [facility], ) ID Date Data Source [id number] 06/15/2019 12:00:00 AM EDT [facility] ([facility], ) Name Value Range Interpretation Description Data Sup porting Code Source(s) Document(s ) Glucose 100 mg/dL Above high normal [facility] (St [Mass/volume] [facility] in Urine Medical, ) collected for unspecified duration Urea nitrogen 25 mg/dL Above high normal [facility] ( St [Mass/volume] [facility] in Serum or Medical, ) Plasma eGFR If 91 Normal (applies [facility] (St NonAfricn Am mL/min/1. to non-numeric [facility] 73 results) Medical, ) Creatinine 0.93 Normal (applies [facility] (St [Interpretation mg/dL to non-numeric [facility] ] in Urine results) Medical, ) eGFR If Africn 106 Normal (applies [facility] (S t Am mL/min/1. to non-numeric [facility] 73 results) Medical, ) BUN/Creatinine 27 Above high normal [facility] (St Ratio [facility], ) Sodium 136 Normal (applies [facility] (St [Moles/volume] mmol/L to non-numeric [facility] in Serum or results) Medical, ) Plasma Potassium 4.2 Normal (applies [facility] (St [Mass/volume] mmol/L to non-numeric [facility] in Blood results) Medical, ) Chloride 100 Normal (applies [facility] (St [Moles/volume] mmol/L to non-numeric [facility] in Serum or results) Medical, ) Plasma Calcium 9.1 mg/dL Normal (applies [facility] (St [Moles/volume] to non-numeric [facility] in Urine results) Medical, ) collected for unspecified duration Carbon dioxide, 21 mmol/L Normal (applies [facility] ( St total to non-numeric [facility] [Moles/volume] results) Medical, ) in Serum or Plasma ID Date Data Source [id number] 06/15/2019 12:00:00 AM EDT [facility], ) Name Value Range Interpretation Description Data Sup porting Code Source(s) Document(s ) Leukocytes 6.8 Normal (applies [facility] (St [#/volume] in x10E3/uL to non-numeric [facility] Blood by results) Medical, ) Automated count Erythrocytes 4.03 Below low normal [facility] (St [#/volume] in x10E6/uL [facility] Blood by Medical, ) Automated count Hematocrit 37.2 % Below low normal [facility] (St [Volume [facility] Fraction] of Medical, ) Blood by Automated count Hemoglobin 12.7 Below low normal [facility] (St [Mass/volume] in g/dL [facility] Blood [facility], ) MCV 92 fL Normal (applies [facility] (St to non-numeric [facility] results) Medical, ) MCHC 34.1 Normal (applies [facility] (St g/dL to non-numeric [facility] results) Medical, ) MCH 31.5 pg Normal (applies [facility] (St to non-numeric [facility] results) Medical, ) RDW 13.8 % Normal (applies [facility] (St to non-numeric [facility] results) Medical, ) Neutrophils [#] 59 % Normal (applies [facility] ( St in Body fluid by to non-numeric [facility] Manual count results) Medical, ) Platelets 175 Normal (applies [facility] (St [#/area] in x10E3/uL to non-numeric [facility] Blood by results) Medical, ) Microscopy high power field Lymphs 31 % Normal (applies [facility] (St to non-numeric [facility] results) Medical, ) Eos 1 % Normal (applies [facility] (St to non-numeric [facility] results) Medical, ) Monocytes 9 % Normal (applies [facility] (St [#/volume] in to non-numeric [facility] Cord blood results) [facility], ) Basos 0 % Normal (applies [facility] (St to non-numeric [facility] results) [facility], ) Neutrophils 4.0 Normal (applies [facility] (St (Absolute) x10E3/uL to non-numeric [facility] results) [facility], ) Lymphs 2.1 Normal (applies [facility] (St (Absolute) x10E3/uL to non-numeric [facility] results) Medical, ) Monocytes(Absolu 0.6 Normal (applies [facility] (St te) x10E3/uL to non-numeric [facility] results) [facility], ) Eos (Absolute) 0.1 Normal (applies [facility] (S t x10E3/uL to non-numeric [facility] results) [facility], ) Baso (Absolute) 0.0 Normal (applies [facility] ( St x10E3/uL to non-numeric [facility] results) [facility], ) Immature 0 % Normal (applies [facility] (St Granulocytes to non-numeric [facility] results) [facility], ) Immature Grans 0.0 Normal (applies [facility] (S t (Abs) x10E3/uL to non-numeric [facility] results) [facility], ) ID Date Data Source [id number] 01/17/2019 12:00:00 AM EST [facility] ([facility]) Name Value Range Interpretation Description Data Sup porting Code Source(s) Document(s ) Hepatitis A Negative Normal (applies [facility] (St virus IgM Ab to non-numeric [facility] [Presence] in results) [facility]) Serum or Plasma by Immunoassay Hepatitis A Positive Abnormal (applies [facility] (St virus Ab to non-numeric [facility] [Presence] in results) [facility]) Serum by Immunoassay ID Date Data Source [id number] 01/17/2019 12:00:00 AM EST [facility] ([facility]) Name Value Range Interpretation Description Data Sup porting Code Source(s) Document(s ) HBsAg Screen Negative Normal (applies [facility] (St to non-numeric [facility] results) [facility], ) Hepatitis B Negative Normal (applies [facility] (St virus core Ab to non-numeric [facility] [Presence] in results) [facility]) Serum or Plasma by Immunoassay Hep B Surface Reactive Normal (applies [facility] (St Ab, Qual to non-numeric [facility] results) Medical, PC) ID Date Data Source [id number] 01/17/2019 12:00:00 AM EST [facility] ([facility], ) Name Value Range Interpretation Description Data Sup porting Code Source(s) Document(s ) Hepatitis C HCV Not Normal (applies [facility] (St Quantitation Detected to non-numeric [facility] results) Medical, PC) HCV log10 Test not Normal (applies [facility] (St performed. to non-numeric [facility] results) Medical, PC) Test Normal (applies [facility] (St Information: to non-numeric [facility] results) Medical, PC) HCV Genotype Test not Normal (applies [facility] (St performed. to non-numeric [facility] results) Medical, ) ID Date Data Source [id number] 01/17/2019 12:00:00 AM EST [facility] ([facility], ) Name Value Range Interpretation Description Data Sup porting Code Source(s) Document(s ) Protein 6.7 g/dL Normal (applies [facility] (St [Mass/volume] in to non-numeric [facility] Serum or Plasma results) Medical, PC) Microalbumin 4.6 g/dL Normal (applies [facility] (St [Mass/time] in to non-numeric [facility] Urine collected for results) Medical, unspecified PC) duration Bilirubin.total 0.2 Normal (applies [facility] ( St [Mass/volume] in mg/dL to non-numeric [facility] Serum or Plasma results) Medical, PC) Bilirubin.conjugate 0.09 Normal (applies [facility] (St d [Mass/volume] in mg/dL to non-numeric [facility] Serum or Plasma results) Medical, PC) Alkaline 79 IU/L Normal (applies [facility] (St phosphatase to non-numeric [facility] [Enzymatic results) Medical, activity/volume] in PC) Serum, Plasma or Blood Aspartate 28 IU/L Normal (applies [facility] (St aminotransferase to non-numeric [facility] [Enzymatic results) Medical, activity/volume] in PC) Serum or Plasma Alanine 15 IU/L Normal (applies [facility] (St aminotransferase to non-numeric [facility] [Enzymatic results) Medical, activity/volume] in PC) Serum or Plasma ID Date Data Source [id number] 01/17/2019 12:00:00 AM EST [facility], ) Name Value Range Interpretation Description Data Sup porting Code Source(s) Document(s ) Glucose 90 mg/dL Normal (applies [facility] (St [Mass/volume] to non-numeric [facility] in Urine results) Medical, ) collected for unspecified duration Urea nitrogen 20 mg/dL Normal (applies [facility] (St [Mass/volume] to non-numeric [facility] in Serum or results) Medical, ) Plasma Creatinine 0.85 Normal (applies [facility] (St [Interpretation mg/dL to non-numeric [facility] ] in Urine results) Medical, ) eGFR If Africn 113 Normal (applies [facility] (S t Am mL/min/1. to non-numeric [facility] 73 results) Medical, ) eGFR If 97 Normal (applies [facility] (St NonAfricn Am mL/min/1. to non-numeric [facility] 73 results) Medical, ) BUN/Creatinine 24 Above high normal [facility] (St Ratio [facility], ) Sodium 141 Normal (applies [facility] (St [Moles/volume] mmol/L to non-numeric [facility] in Serum or results) Medical, ) Plasma Potassium 4.5 Normal (applies [facility] (St [Mass/volume] mmol/L to non-numeric [facility] in Blood results) Medical, ) Carbon dioxide, 23 mmol/L Normal (applies [facility] ( St total to non-numeric [facility] [Moles/volume] results) Medical, ) in Serum or Plasma Chloride 102 Normal (applies [facility] (St [Moles/volume] mmol/L to non-numeric [facility] in Serum or results) Medical, ) Plasma Calcium 9.2 mg/dL Normal (applies [facility] (St [Moles/volume] to non-numeric [facility] in Urine results) Medical, ) collected for unspecified duration ID Date Data Source [id number] 01/17/2019 12:00:00 AM EST [facility] [facility], ) Name Value Range Interpretation Description Data Sup porting Code Source(s) Document(s ) Fibrosis Score 0.27 Above high normal [facility] ([facility], ) Steatosis Score 0.25 Normal (applies [facility] ( St to non-numeric [facility] results) [facility], ) Fibrosis stage F0-F1 Normal (applies [facility] (S t to non-numeric [facility] results) [facility], ) Steatosis Grade Normal (applies [facility] ( St to non-numeric [facility] results) [facility], ) STEPHANE Score 0.03 Normal (applies [facility] (St to non-numeric [facility] results) [facility], ) Height: 66 in Normal (applies [facility] (St to non-numeric [facility] results) [facility], ) STEPHANE Grade Normal (applies [facility] (St to non-numeric [facility] results) [facility], ) Weight: 222 LBS Normal (applies [facility] (St to non-numeric [facility] results) [facility], ) Alpha 349 Above high normal [facility] (St 2-Macroglobulins, mg/dL [facility] Qn [facility], ) Haptoglobin 130 Normal (applies [facility] (St [Mass/volume] in mg/dL to non-numeric [facility] Serum or Plasma results) [facility], ) by Nephelometry Apolipoprotein 135 Normal (applies [facility] (S t A-1 mg/dL to non-numeric [facility] results) [facility], ) Bilirubin, Total 0.2 Normal (applies [facility] (St mg/dL to non-numeric [facility] results) [facility], ) ALT (SGPT) P5P 22 IU/L Normal (applies [facility] (S t to non-numeric [facility] results) [facility], ) GGT 11 IU/L Normal (applies [facility] (St to non-numeric [facility] results) [facility], ) AST (SGOT) P5P 35 IU/L Normal (applies [facility] (S t to non-numeric [facility] results) [facility], ) Glucose, Serum 87 mg/dL Normal (applies [facility] (S t to non-numeric [facility] results) [facility], ) Cholesterol, 159 Normal (applies [facility] (St Total mg/dL to non-numeric [facility] results) [facility], ) Triglycerides 103 Normal (applies [facility] (St mg/dL to non-numeric [facility] results) [facility], ) Interpretation: Normal (applies [facility] ( St to non-numeric [facility] results) [facility], ) Steatosis Grading Normal (applies [facility] (St to non-numeric [facility] results) [facility], ) Fibrosis Scoring: Normal (applies [facility] (St to non-numeric [facility] results) Medical, PC) STEPHANE Scoring Normal (applies [facility] (St to non-numeric [facility] results) Medical, PC) Comment: Normal (applies [facility] (St to non-numeric [facility] results) Medical, PC) Limitations: Normal (applies [facility] (St to non-numeric [facility] results) Medical, ) ID Date Data Source [id number] 01/17/2019 12:00:00 AM EST [facility] ([facility], ) Name Value Range Interpretation Description Data Sup porting Code Source(s) Document(s ) Hepatitis A Negative Normal (applies [facility] (St virus IgM Ab to non-numeric [facility] [Presence] in results) Medical, ) Serum or Plasma by Immunoassay Hepatitis A Positive Abnormal (applies [facility] (St virus Ab to non-numeric [facility] [Presence] in results) Medical, ) Serum by Immunoassay ID Date Data Source [id number] 01/17/2019 12:00:00 AM EST [facility] ([facility], ) Name Value Range Interpretation Description Data Sup porting Code Source(s) Document(s ) HBsAg Screen Negative Normal (applies [facility] (St to non-numeric [facility] results) Medical, PC) Hepatitis B Negative Normal (applies [facility] (St virus core Ab to non-numeric [facility] [Presence] in results) Medical, PC) Serum or Plasma by Immunoassay Hep B Surface Reactive Normal (applies [facility] (St Ab, Qual to non-numeric [facility] results) [facility], ) ID Date Data Source [id number] 01/17/2019 12:00:00 AM EST [facility] ([facility], ) Name Value Range Interpretation Description Data Sup porting Code Source(s) Document(s ) Hepatitis C HCV Not Normal (applies [facility] (St Quantitation Detected to non-numeric [facility] results) [facility], PC) HCV log10 Test not Normal (applies [facility] (St performed. to non-numeric [facility] results) [facility], PC) HCV Genotype Test not Normal (applies [facility] (St performed. to non-numeric [facility] results) Medical, ) ID Date Data Source [id number] 01/17/2019 12:00:00 AM EST [facility] ([facility] ) Name Value Range Interpretation Description Data Sup porting Code Source(s) Document(s ) Protein 6.7 g/dL Normal (applies [facility] (St [Mass/volume] in to non-numeric [facility] Serum or Plasma results) Medical, ) Microalbumin 4.6 g/dL Normal (applies [facility] (St [Mass/time] in to non-numeric [facility] Urine collected for results) Medical, unspecified ) duration Bilirubin.conjugate 0.09 Normal (applies [facility] EN (St d [Mass/volume] in mg/dL to non-numeric [facility] Serum or Plasma results) Medical, ) Bilirubin.total 0.2 Normal (applies [facility] ( St [Mass/volume] in mg/dL to non-numeric [facility] Serum or Plasma results) Medical, ) Alkaline 79 IU/L Normal (applies [facility] (St phosphatase to non-numeric [facility] [Enzymatic results) Medical, activity/volume] in PC) Serum, Plasma or Blood Aspartate 28 IU/L Normal (applies [facility] (St aminotransferase to non-numeric [facility] [Enzymatic results) Medical, activity/volume] in ) Serum or Plasma Alanine 15 IU/L Normal (applies [facility] (St aminotransferase to non-numeric [facility] [Enzymatic results) Medical, activity/volume] in PC) Serum or Plasma ID Date Data Source [id number] 01/17/2019 12:00:00 AM EST [facility], ) Name Value Range Interpretation Description Data Sup porting Code Source(s) Document(s ) Glucose 90 mg/dL Normal (applies [facility] (St [Mass/volume] to non-numeric [facility] in Urine results) Medical, ) collected for unspecified duration Urea nitrogen 20 mg/dL Normal (applies [facility] (St [Mass/volume] to non-numeric [facility] in Serum or results) Medical, ) Plasma Creatinine 0.85 Normal (applies [facility] (St [Interpretation mg/dL to non-numeric [facility] ] in Urine results) Medical, ) eGFR If 97 Normal (applies [facility] (St NonAfricn Am mL/min/1. to non-numeric [facility] 73 results) Medical, ) eGFR If Africn 113 Normal (applies [facility] (S t Am mL/min/1. to non-numeric [facility] 73 results) Medical, ) BUN/Creatinine 24 Above high normal [facility] (St Ratio [facility], ) Sodium 141 Normal (applies [facility] (St [Moles/volume] mmol/L to non-numeric [facility] in Serum or results) [facility], ) Plasma Potassium 4.5 Normal (applies [facility] (St [Mass/volume] mmol/L to non-numeric [facility] in Blood results) [facility], ) Chloride 102 Normal (applies [facility] (St [Moles/volume] mmol/L to non-numeric [facility] in Serum or results) [facility], ) Plasma Carbon dioxide, 23 mmol/L Normal (applies [facility] ( St total to non-numeric [facility] [Moles/volume] results) [facility], ) in Serum or Plasma Calcium 9.2 mg/dL Normal (applies [facility] (St [Moles/volume] to non-numeric [facility] in Urine results) [facility], ) collected for unspecified duration ID Date Data Source [id number] 01/17/2019 12:00:00 AM EST [facility] ([facility], ) Name Value Range Interpretation Description Data Sup porting Code Source(s) Document(s ) Fibrosis Score 0.27 Above high normal [facility] ([facility], ) Fibrosis stage F0-F1 Normal (applies [facility] (S t to non-numeric [facility] results) [facility], ) Steatosis Score 0.25 Normal (applies [facility] ( St to non-numeric [facility] results) [facility], ) STEPHANE Score 0.03 Normal (applies [facility] (St to non-numeric [facility] results) [facility], ) Height: 66 in Normal (applies [facility] (St to non-numeric [facility] results) [facility], ) Weight: 222 LBS Normal (applies [facility] (St to non-numeric [facility] results) [facility], ) Alpha 349 Above high normal [facility] (St 2-Macroglobulins, mg/dL [facility]n [facility], ) Haptoglobin 130 Normal (applies [facility] (St [Mass/volume] in mg/dL to non-numeric [facility] Serum or Plasma results) [facility], ) by Nephelometry Apolipoprotein 135 Normal (applies [facility] (S t A-1 mg/dL to non-numeric [facility] results) [facility], ) Bilirubin, Total 0.2 Normal (applies [facility] (St mg/dL to non-numeric [facility] results) Medical, ) ALT (SGPT) P5P 22 IU/L Normal (applies [facility] (S t to non-numeric [facility] results) Medical, ) GGT 11 IU/L Normal (applies [facility] (St to non-numeric [facility] results) Medical, ) AST (SGOT) P5P 35 IU/L Normal (applies [facility] (S t to non-numeric [facility] results) [facility], ) Cholesterol, 159 Normal (applies [facility] (St Total mg/dL to non-numeric [facility] results) [facility], ) Glucose, Serum 87 mg/dL Normal (applies [facility] (S t to non-numeric [facility] results) [facility], ) Triglycerides 103 Normal (applies [facility] (St mg/dL to non-numeric [facility] results) [facility], ) ID Date Data Source DRUG/ALCOHOL METABOLITE PANEL 01/08/2019 10:07:29 AM EST eCW 3 ([facility] (Q245-3).2 Care) Name Value Range Interpretation Code Description Data Cony rce(s) Supporting Document(s ) 164.3 CREATININE eCW3 ([facility]) ID Date Data Source DRUG SCREEN 13.0 01/08/2019 10:07:04 AM EST eCW3 ([facility]) Name Value Range Interpretation Description Data Sup porting Code Source(s) Document(s ) Negative OPIATES eCW3 ([facility]) Negative AMPHETAMINES eCW3 ([facility]) Negative COCAINE eCW3 ([facility]) Negative BARBITURATES eCW3 ([facility]) Negative BENZODIAZEPINES eCW3 ([facility]) Negative METHADONE eCW3 ([facility]) 164.3 CREATININE eCW3 ([facility]) Negative OXIDANTS eCW3 ([facility]) Negative THC eCW3 ([facility]) Negative PHENCYCLIDINE(PCP) eCW3 ([facility]) Negative 6-ACETYLMORPHINE(6- eCW3 ([facility]) 8.7 pH eCW3 ([facility]) 1.0148 SPECIFIC GRAVITY eCW3 ([facility]) Negative NITRITE eCW3 ([facility]) Negative OXYCODONE eCW3 ([facility]) Negative TRAMADOL, QUAL eCW3 ([facility]) POSITIVE BUPRENORPHINE eCW3 ([facility]) Negative FENTANYL eCW3 ([facility]) ID Date Data Source [id number] 01/08/2019 10:06:35 AM EST eCW3 ([facility]) Name Value Range Interpretation Code Description Data Cony rce(s) Supporting Document(s ) 1040 Buprenorphine(LC/ eCW3 ([place] MS/MS) [facility]) >2000 Norbuprenorphine( eCW3 ([place] LC/MS/MS) [facility]) ID Date Data Source [id number] 08/17/2018 12:00:00 AM EDT [facility] ([facility], ) Name Value Range Interpretation Code Description Data Cony rce(s) Supporting Document(s ) RPR Non Reactive Normal (applies to [facility] ( St non-numeric [facility] results) Medical, ) ID Date Data Source [id number] 08/17/2018 12:00:00 AM EDT [facility] ([facility], ) Name Value Range Interpretation Code Description Data Cony rce(s) Supporting Document(s ) TSH 2.520 Normal (applies to [facility] (St uIU/mL non-numeric results) [facility]) ID Date Data Source [id number] 08/17/2018 12:00:00 AM EDT [facility] ([facility], ) Name Value Range Interpretation Description Data Sup porting Code Source(s) Document(s ) HIV Screen Non Normal (applies [facility] (St 4th Reactive to non-numeric [facility] Generation results) Medical, ) wRfx ID Date Data Source [id number] 08/17/2018 12:00:00 AM EDT [facility] ([facility], ) Name Value Range Interpretation Description Data Sup porting Code Source(s) Document(s ) Vitamin D, 31.0 Normal (applies to [facility] (St 25-Hydroxy ng/mL non-numeric [facility] results) Medical, ) ID Date Data Source [id number] 08/17/2018 12:00:00 AM EDT [facility] ([facility], ) Name Value Range Interpretation Description Data Sup porting Code Source(s) Document(s ) Hemoglobin 5.4 % Normal (applies to [facility] (St A1c/Hemoglobin. non-numeric [facility] total in Blood results) [facility]) ID Date Data Source [id number] 08/17/2018 12:00:00 AM EDT [facility] ([facility]) Name Value Range Interpretation Description Data Sup porting Code Source(s) Document(s ) Chlamydia Negative Normal (applies [facility] (St trachomatis rRNA to non-numeric [facility] [Presence] in results) [facility], ) Unspecified specimen by Probe and target amplification method Neisseria Negative Normal (applies [facility] (St gonorrhoeae rRNA to non-numeric [facility] [Presence] in results) [facility]) Unspecified specimen by Probe and target amplification method ID Date Data Source [id number] 08/17/2018 12:00:00 AM EDT [facility] ([facility]) Name Value Range Interpretation Description Data Sup porting Code Source(s) Document(s ) Hepatitis A Negative Normal (applies [facility] (St virus IgM Ab to non-numeric [facility] [Presence] in results) [facility]) Serum or Plasma by Immunoassay HBsAg Screen Negative Normal (applies [facility] (St to non-numeric [facility] results) [facility]) Hepatitis B Negative Normal (applies [facility] (St virus core IgM to non-numeric [facility] Ab [Presence] results) [facility]) in Serum or Plasma by Immunoassay Hep C Virus Ab >11.0 Above high normal [facility]) ID Date Data Source [id number] 08/17/2018 12:00:00 AM EDT [facility] ([facility]) Name Value Range Interpretation Description Data Sup porting Code Source(s) Document(s ) Cholesterol 139 Normal (applies [facility] (St [Mass/volume] in mg/dL to non-numeric [facility] Serum or Plasma results) [facility]) Triglyceride 84 mg/dL Normal (applies [facility] (St [Mass/volume] in to non-numeric [facility] Serum or Plasma results) [facility]) HDL Cholesterol 53 mg/dL Normal (applies [facility] ( St to non-numeric [facility] results) [facility]) VLDL Cholesterol 17 mg/dL Normal (applies [facility] (St Kd to non-numeric [facility] results) [facility], ) LDL Cholesterol 69 mg/dL Normal (applies [facility] ( St Calc to non-numeric [facility] results) Medical, ) ID Date Data Source [id number] 08/17/2018 12:00:00 AM EDT [facility] ([facility], ) Name Value Range Interpretation Description Data Sup porting Code Source(s) Document(s ) Specific gravity 1.025 Normal (applies [facility] (St of Pericardial to non-numeric [facility] fluid by results) Medical, Refractometry PC) pH of Lower 6.0 Normal (applies [facility] (St respiratory to non-numeric [facility] specimen results) Medical, ) Urine-Color Yellow Normal (applies [facility] (St to non-numeric [facility] results) Medical, ) Appearance of Clear Normal (applies [facility] (St Abdomen to non-numeric [facility] results) Medical, PC) WBC Esterase Negative Normal (applies [facility] (St to non-numeric [facility] results) Medical, PC) Protein Negative Normal (applies [facility] (St [Mass/volume] in to non-numeric [facility] Lower results) Medical, respiratory PC) specimen Glucose Negative Normal (applies [facility] (St [Mass/volume] in to non-numeric [facility] Urine collected results) Medical, for unspecified PC) duration Ketones Negative Normal (applies [facility] (St [Presence] in to non-numeric [facility] Blood by Tablet results) Medical, ) Occult Blood Negative Normal (applies [facility] (St to non-numeric [facility] results) Medical, PC) Bilirubin Negative Normal (applies [facility] (St [Presence] in to non-numeric [facility] Peritoneal fluid results) Medical, ) Urobilinogen,Prince 0.2 EU/dL Normal (applies [facility] (St i-Qn to non-numeric [facility] results) Medical, PC) Nitrite, Urine Negative Normal (applies [facility] (S t to non-numeric [facility] results) Medical, ) Microscopic Normal (applies [facility] (St Examination to non-numeric [facility] results) Medical, ) ID Date Data Source [id number] 08/17/2018 12:00:00 AM EDT [facility] ([facility], ) Name Value Range Interpretation Description Data Sup porting Code Source(s) Document(s ) Glucose 97 mg/dL Normal (applies [facility] (St [Mass/volume] in to non-numeric [facility] Urine collected for results) Medical, unspecified PC) duration Urea nitrogen 18 mg/dL Normal (applies [facility] (St [Mass/volume] in to non-numeric [facility] Serum or Plasma results) Medical, PC) Creatinine 0.93 Normal (applies [facility] (St [Interpretation] in mg/dL to non-numeric [facility] Urine results) Medical, PC) eGFR If NonAfricn 91 Normal (applies [facility] (St Am mL/min/1 to non-numeric [facility] .73 results) Medical, PC) eGFR If Africn Am 106 Normal (applies [facility] (St mL/min/1 to non-numeric [facility] .73 results) Medical, PC) BUN/Creatinine 19 Normal (applies [facility] (S t Ratio to non-numeric [facility] results) Medical, PC) Sodium 137 Normal (applies [facility] (St [Moles/volume] in mmol/L to non-numeric [facility] Serum or Plasma results) Medical, PC) Potassium 4.3 Normal (applies [facility] (St [Mass/volume] in mmol/L to non-numeric [facility] Blood results) Medical, PC) Chloride 100 Normal (applies [facility] (St [Moles/volume] in mmol/L to non-numeric [facility] Serum or Plasma results) Medical, PC) Calcium 9.4 Normal (applies [facility] (St [Moles/volume] in mg/dL to non-numeric [facility] Urine collected for results) Medical, unspecified PC) duration Protein 6.9 g/dL Normal (applies [facility] (St [Mass/volume] in to non-numeric [facility] Serum or Plasma results) Medical, PC) Microalbumin 4.6 g/dL Normal (applies [facility] (St [Mass/time] in to non-numeric [facility] Urine collected for results) Medical, unspecified PC) duration Globulin, Total 2.3 g/dL Normal (applies [facility] ( St to non-numeric [facility] results) Medical, PC) A/G Ratio 2.0 Normal (applies [facility] (St to non-numeric [facility] results) Medical, PC) Bilirubin.total 0.3 Normal (applies [facility] ( St [Mass/volume] in mg/dL to non-numeric [facility] Serum or Plasma results) Medical, PC) Alkaline 103 IU/L Normal (applies [facility] (St phosphatase to non-numeric [facility] [Enzymatic results) Medical, activity/volume] in ) Serum, Plasma or Blood Aspartate 22 IU/L Normal (applies [facility] (St aminotransferase to non-numeric [facility] [Enzymatic results) Medical, activity/volume] in ) Serum or Plasma ID Date Data Source [id number] 08/17/2018 12:00:00 AM EDT [facility] ([facility], ) Name Value Range Interpretation Description Data Sup porting Code Source(s) Document(s ) Leukocytes 8.1 Normal (applies [facility] (St [#/volume] in x10E3/uL to non-numeric [facility] Blood by results) Medical, ) Automated count Hemoglobin 14.0 Normal (applies [facility] (St [Mass/volume] in g/dL to non-numeric [facility] Blood results) Medical, ) Erythrocytes 4.52 Normal (applies [facility] (St [#/volume] in x10E6/uL to non-numeric [facility] Blood by results) Medical, ) Automated count Hematocrit 41.2 % Normal (applies [facility] (St [Volume to non-numeric [facility] Fraction] of results) Medical, ) Blood by Automated count MCV 91 fL Normal (applies [facility] (St to non-numeric [facility] results) Medical, ) MCHC 34.0 Normal (applies [facility] (St g/dL to non-numeric [facility] results) Medical, ) MCH 31.0 pg Normal (applies [facility] (St to non-numeric [facility] results) Medical, ) RDW 13.8 % Normal (applies [facility] (St to non-numeric [facility] results) Medical, ) Platelets 190 Normal (applies [facility] (St [#/area] in x10E3/uL to non-numeric [facility] Blood by results) Medical, ) Microscopy high power field Neutrophils [#] 64 % Normal (applies [facility] ( St in Body fluid by to non-numeric [facility] Manual count results) Medical, ) Lymphs 26 % Normal (applies [facility] (St to non-numeric [facility] results) Medical, ) Monocytes 7 % Normal (applies [facility] (St [#/volume] in to non-numeric [facility] Cord blood results) Medical, ) Eos 3 % Normal (applies [facility] (St to non-numeric [facility] results) Medical, ) Basos 0 % Normal (applies [facility] (St to non-numeric [facility] results) Medical, ) Neutrophils 5.1 Normal (applies [facility] (St (Absolute) x10E3/uL to non-numeric [facility] results) Medical, ) Lymphs 2.1 Normal (applies [facility] (St (Absolute) x10E3/uL to non-numeric [facility] results) Medical, ) Eos (Absolute) 0.3 Normal (applies [facility] (S t x10E3/uL to non-numeric [facility] results) Medical, ) Monocytes(Absolu 0.6 Normal (applies [facility] (St te) x10E3/uL to non-numeric [facility] results) Medical, ) Baso (Absolute) 0.0 Normal (applies [facility] ( St x10E3/uL to non-numeric [facility] results) Medical, ) Immature 0 % Normal (applies [facility] (St Granulocytes to non-numeric [facility] results) Medical, ) Immature Grans 0.0 Normal (applies [facility] (S t (Abs) x10E3/uL to non-numeric [facility] results) [facility], ) ID Date Data Source [id number] 08/17/2018 12:00:00 AM EDT [facility] ([facility], ) Name Value Range Interpretation Code Description Data Cony rce(s) Supporting Document(s ) RPR Non Reactive Normal (applies to [facility] ( St non-numeric [facility] results) [facility], ) ID Date Data Source [id number] 08/17/2018 12:00:00 AM EDT [facility] ([facility], ) Name Value Range Interpretation Code Description Data Cony rce(s) Supporting Document(s ) TSH 2.520 Normal (applies to [facility] (St uIU/mL non-numeric results) [facility] ID Date Data Source [id number] 08/17/2018 12:00:00 AM EDT [facility] ([facility], ) Name Value Range Interpretation Description Data Sup porting Code Source(s) Document(s ) HIV Screen Non Normal (applies [facility] (St 4th Reactive to non-numeric [facility] Generation results) [facility], ) wRfx ID Date Data Source [id number] 08/17/2018 12:00:00 AM EDT [facility] ([facility], ) Name Value Range Interpretation Description Data Sup porting Code Source(s) Document(s ) Vitamin D, 31.0 Normal (applies to [facility] (St 25-Hydroxy ng/mL non-numeric [facility] results) [facility], ) ID Date Data Source [id number] 08/17/2018 12:00:00 AM EDT [facility] ([facility], ) Name Value Range Interpretation Description Data Sup porting Code Source(s) Document(s ) Hemoglobin 5.4 % Normal (applies to [facility] (St A1c/Hemoglobin. non-numeric [facility] total in Blood results) [facility], ) ID Date Data Source [id number] 08/17/2018 12:00:00 AM EDT [facility] ([facility], ) Name Value Range Interpretation Description Data Sup porting Code Source(s) Document(s ) Chlamydia Negative Normal (applies [facility] (St trachomatis rRNA to non-numeric [facility] [Presence] in results) [facility], ) Unspecified specimen by Probe and target amplification method Neisseria Negative Normal (applies [facility] (St gonorrhoeae rRNA to non-numeric [facility] [Presence] in results) [facility], ) Unspecified specimen by Probe and target amplification method ID Date Data Source [id number] 08/17/2018 12:00:00 AM EDT [facility] ([facility], ) Name Value Range Interpretation Description Data Sup porting Code Source(s) Document(s ) Hepatitis A Negative Normal (applies [facility] (St virus IgM Ab to non-numeric [facility] [Presence] in results) [facility], ) Serum or Plasma by Immunoassay HBsAg Screen Negative Normal (applies [facility] (St to non-numeric [facility] results) [facility], ) Hep C Virus Ab >11.0 Above high normal [facility] ([facility], ) Hepatitis B Negative Normal (applies [facility] (St virus core IgM to non-numeric [facility] Ab [Presence] results) [facility], ) in Serum or Plasma by Immunoassay ID Date Data Source [id number] 08/17/2018 12:00:00 AM EDT [facility]) Name Value Range Interpretation Description Data Sup porting Code Source(s) Document(s ) Cholesterol 139 Normal (applies [facility] (St [Mass/volume] in mg/dL to non-numeric [facility] Serum or Plasma results) Medical, PC) Triglyceride 84 mg/dL Normal (applies [facility] (St [Mass/volume] in to non-numeric [facility] Serum or Plasma results) Medical, PC) HDL Cholesterol 53 mg/dL Normal (applies [facility] ( St to non-numeric [facility] results) Medical, PC) VLDL Cholesterol 17 mg/dL Normal (applies [facility] (St Kd to non-numeric [facility] results) Medical, PC) LDL Cholesterol 69 mg/dL Normal (applies [facility] ( St Calc to non-numeric [facility] results) Medical, PC) ID Date Data Source [id number] 08/17/2018 12:00:00 AM EDT [facility] ([facility]) Name Value Range Interpretation Description Data Sup porting Code Source(s) Document(s ) pH of Lower 6.0 Normal (applies [facility] (St respiratory to non-numeric [facility] specimen results) Medical, PC) Specific gravity 1.025 Normal (applies [facility] (St of Pericardial to non-numeric [facility] fluid by results) Medical, Refractometry PC) Urine-Color Yellow Normal (applies [facility] (St to non-numeric [facility] results) Medical, PC) Appearance of Clear Normal (applies [facility] (St Abdomen to non-numeric [facility] results) Medical, PC) WBC Esterase Negative Normal (applies [facility] (St to non-numeric [facility] results) Medical, PC) Protein Negative Normal (applies [facility] (St [Mass/volume] in to non-numeric [facility] Lower results) Medical, respiratory PC) specimen Ketones Negative Normal (applies [facility] (St [Presence] in to non-numeric [facility] Blood by Tablet results) Medical, PC) Glucose Negative Normal (applies [facility] (St [Mass/volume] in to non-numeric [facility] Urine collected results) Medical, for unspecified PC) duration Occult Blood Negative Normal (applies [facility] (St to non-numeric [facility] results) Medical, PC) Urobilinogen,Prince 0.2 EU/dL Normal (applies [facility] (St i-Qn to non-numeric [facility] results) Medical, PC) Bilirubin Negative Normal (applies [facility] (St [Presence] in to non-numeric [facility] Peritoneal fluid results) Medical, PC) Nitrite, Urine Negative Normal (applies [facility] (S t to non-numeric [facility] results) Medical, PC) ID Date Data Source [id number] 08/17/2018 12:00:00 AM EDT [facility] ([facility]) Name Value Range Interpretation Description Data Sup porting Code Source(s) Document(s ) Glucose 97 mg/dL Normal (applies [facility] (St [Mass/volume] in to non-numeric [facility] Urine collected for results) Medical, unspecified PC) duration Urea nitrogen 18 mg/dL Normal (applies [facility] (St [Mass/volume] in to non-numeric [facility] Serum or Plasma results) Medical, PC) eGFR If NonAfricn 91 Normal (applies [facility] (St Am mL/min/1 to non-numeric [facility] .73 results) Medical, PC) Creatinine 0.93 Normal (applies [facility] (St [Interpretation] in mg/dL to non-numeric [facility] Urine results) Medical, PC) eGFR If Africn Am 106 Normal (applies [facility]GEN (St mL/min/1 to non-numeric [facility] .73 results) Medical, PC) BUN/Creatinine 19 Normal (applies [facility] (S t Ratio to non-numeric [facility] results) Medical, PC) Sodium 137 Normal (applies [facility] (St [Moles/volume] in mmol/L to non-numeric [facility] Serum or Plasma results) Medical, PC) Chloride 100 Normal (applies [facility]GEN (St [Moles/volume] in mmol/L to non-numeric [facility] Serum or Plasma results) Medical, PC) Potassium 4.3 Normal (applies [facility] (St [Mass/volume] in mmol/L to non-numeric [facility] Blood results) Medical, PC) Calcium 9.4 Normal (applies [facility] (St [Moles/volume] in mg/dL to non-numeric [facility] Urine collected for results) Medical, unspecified PC) duration Protein 6.9 g/dL Normal (applies [facility] (St [Mass/volume] in to non-numeric [facility] Serum or Plasma results) Medical, PC) Globulin, Total 2.3 g/dL Normal (applies [facility] ( St to non-numeric [facility] results) Medical, ) Microalbumin 4.6 g/dL Normal (applies [facility] (St [Mass/time] in to non-numeric [facility] Urine collected for results) [facility], unspecified PC) duration A/G Ratio 2.0 Normal (applies [facility] (St to non-numeric [facility] results) Medical, PC) Alkaline 103 IU/L Normal (applies [facility] (St phosphatase to non-numeric [facility] [Enzymatic results) Medical, activity/volume] in PC) Serum, Plasma or Blood Bilirubin.total 0.3 Normal (applies [facility] ( St [Mass/volume] in mg/dL to non-numeric [facility] Serum or Plasma results) Medical, ) Aspartate 22 IU/L Normal (applies [facility] (St aminotransferase to non-numeric [facility] [Enzymatic results) Medical, activity/volume] in ) Serum or Plasma ID Date Data Source [id number] 08/17/2018 12:00:00 AM EDT [facility] ([facility], ) Name Value Range Interpretation Description Data Sup porting Code Source(s) Document(s ) Leukocytes 8.1 Normal (applies [facility] (St [#/volume] in x10E3/uL to non-numeric [facility] Blood by results) Medical, PC) Automated count Hemoglobin 14.0 Normal (applies [facility] (St [Mass/volume] in g/dL to non-numeric [facility] Blood results) Medical, PC) Erythrocytes 4.52 Normal (applies [facility] (St [#/volume] in x10E6/uL to non-numeric [facility] Blood by results) Medical, ) Automated count Hematocrit 41.2 % Normal (applies [facility] (St [Volume to non-numeric [facility] Fraction] of results) Medical, PC) Blood by Automated count MCV 91 fL Normal (applies [facility]GEN (St to non-numeric [facility] results) Medical, PC) MCH 31.0 pg Normal (applies MEDGEN (St to non-numeric [facility] results) Medical, PC) MCHC 34.0 Normal (applies MEDGEN (St g/dL to non-numeric [facility] results) [facility], [facility]) RDW 13.8 % Normal (applies [facility] (St to non-numeric [facility] results) [facility]) Platelets 190 Normal (applies [facility] (St [#/area] in x10E3/uL to non-numeric [facility] Blood by results) [facility], ) Microscopy high power field Neutrophils [#] 64 % Normal (applies [facility] ( St in Body fluid by to non-numeric [facility] Manual count results) [facility], ) Lymphs 26 % Normal (applies [facility] (St to non-numeric [facility] results) [facility], ) Monocytes 7 % Normal (applies [facility] (St [#/volume] in to non-numeric [facility] Cord blood results) [facility], ) Eos 3 % Normal (applies [facility] (St to non-numeric [facility] results) [facility], ) Basos 0 % Normal (applies [facility] (St to non-numeric [facility] results) [facility], ) Neutrophils 5.1 Normal (applies [facility] (St (Absolute) x10E3/uL to non-numeric [facility] results) [facility]) Lymphs 2.1 Normal (applies [facility] (St (Absolute) x10E3/uL to non-numeric [facility] results) [facility], ) Monocytes(Absolu 0.6 Normal (applies [facility] (St te) x10E3/uL to non-numeric [facility] results) [facility], ) Eos (Absolute) 0.3 Normal (applies [facility] (S t x10E3/uL to non-numeric [facility] results) [facility], ) Immature 0 % Normal (applies [facility] (St Granulocytes to non-numeric [facility] results) [facility], ) Baso (Absolute) 0.0 Normal (applies [facility] ( St x10E3/uL to non-numeric [facility] results) [facility], ) Immature Grans 0.0 Normal (applies [facility] (S t (Abs) x10E3/uL to non-numeric [facility] results) [facility], ) ID Date Data Source [id number] 09/15/2017 12:00:00 AM EDT [facility] ([facility], ) Name Value Range Interpretation Description Data Sup porting Code Source(s) Document(s ) Vitamin D, 13.3 Below low normal [facility] (St 25-Hydroxy ng/mL [facility]) ID Date Data Source [id number] 09/15/2017 12:00:00 AM EDT [facility] ([facility], ) Name Value Range Interpretation Code Description Data Cony rce(s) Supporting Document(s ) TSH 4.040 Normal (applies to [facility] (St uIU/mL non-numeric results) [facility]) ID Date Data Source [id number] 09/15/2017 12:00:00 AM EDT [facility] ([facility], ) Name Value Range Interpretation Description Data Sup porting Code Source(s) Document(s ) Glucose, Serum 117 Above high [facility] (St mg/dL normal [facility], ) Urea nitrogen 23 mg/dL Normal (applies [facility] (St [Mass/volume] in to non-numeric [facility] Serum or Plasma results) [facility], ) Creatinine, Serum 0.90 Normal (applies [facility] (St mg/dL to non-numeric [facility] results) [facility], ) eGFR If NonAfricn 96 Normal (applies [facility] (St Am mL/min/1 to non-numeric [facility] .73 results) [facility], ) BUN/Creatinine 26 Above high [facility] (St Ratio normal [facility], ) eGFR If Africn Am 111 Normal (applies [facility] (St mL/min/1 to non-numeric [facility] .73 results) [facility], ) Sodium 136 Normal (applies [facility] (St [Moles/volume] in mmol/L to non-numeric [facility] Serum or Plasma results) [facility], ) Potassium, Serum 4.6 Normal (applies [facility] (St mmol/L to non-numeric [facility] results) [facility], ) Calcium, Serum 9.1 Normal (applies [facility] (S t mg/dL to non-numeric [facility] results) [facility], ) Chloride 99 Normal (applies [facility] (St [Moles/volume] in mmol/L to non-numeric [facility] Serum or Plasma results) [facility], ) Protein 6.6 g/dL Normal (applies [facility] (St [Mass/volume] in to non-numeric [facility] Serum or Plasma results) [facility], ) Albumin, Serum 4.3 g/dL Normal (applies [facility] (S t to non-numeric [facility] results) [facility], ) A/G Ratio 1.9 Normal (applies [facility] (St to non-numeric [facility] results) [facility], ) Globulin, Total 2.3 g/dL Normal (applies [facility] ( St to non-numeric [facility] results) [facility], ) Bilirubin.total 0.2 Normal (applies [facility] ( St [Mass/volume] in mg/dL to non-numeric [facility] Serum or Plasma results) [facility], ) Aspartate 21 IU/L Normal (applies [facility] (St aminotransferase to non-numeric [facility] [Enzymatic results) [facility], activity/volume] in ) Serum or Plasma Alkaline 134 IU/L Above high [facility] (St Phosphatase, S normal [facility], ) ID Date Data Source [id number] 09/15/2017 12:00:00 AM EDT [facility], ) Name Value Range Interpretation Description Data Sup porting Code Source(s) Document(s ) Leukocytes 6.7 Normal (applies [facility] (St [#/volume] in x10E3/uL to non-numeric [facility] Blood by results) [facility], ) Automated count Hemoglobin 13.1 Normal (applies [facility] (St [Mass/volume] in g/dL to non-numeric [facility] Blood results) [facility], ) Erythrocytes 4.25 Normal (applies [facility] (St [#/volume] in x10E6/uL to non-numeric [facility] Blood by results) [facility], ) Automated count Hematocrit 38.8 % Normal (applies [facility] (St [Volume to non-numeric [facility] Fraction] of results) [facility], ) Blood by Automated count MCV 91 fL Normal (applies [facility] (St to non-numeric [facility] results) [facility], ) MCHC 33.8 Normal (applies [facility] (St g/dL to non-numeric [facility] results) [facility], ) MCH 30.8 pg Normal (applies [facility] (St to non-numeric [facility] results) [facility], ) RDW 13.9 % Normal (applies [facility] (St to non-numeric [facility] results) [facility], ) Platelets 195 Normal (applies [facility] (St [#/area] in x10E3/uL to non-numeric [facility] Blood by results) [facility], ) Microscopy high power field Neutrophils [#] 53 % Normal (applies [facility] ( St in Body fluid by to non-numeric [facility] Manual count results) [facility], ) Lymphs 34 % Normal (applies [facility] (St to non-numeric [facility] results) [facility], ) Monocytes 8 % Normal (applies [facility] (St [#/volume] in to non-numeric [facility] Cord blood results) [facility], ) Eos 4 % Normal (applies [facility] (St to non-numeric [facility] results) [facility], ) Basos 1 % Normal (applies [facility] (St to non-numeric [facility] results) [facility], ) Neutrophils 3.6 Normal (applies [facility] (St (Absolute) x10E3/uL to non-numeric [facility] results) [facility], ) Lymphs 2.2 Normal (applies [facility] (St (Absolute) x10E3/uL to non-numeric [facility] results) [facility], ) Monocytes(Absolu 0.5 Normal (applies [facility] (St te) x10E3/uL to non-numeric [facility] results) [facility], ) Eos (Absolute) 0.2 Normal (applies [facility] (S t x10E3/uL to non-numeric [facility] results) [facility], ) Baso (Absolute) 0.0 Normal (applies [facility] ( St x10E3/uL to non-numeric [facility] results) [facility], ) Immature 0 % Normal (applies [facility] (St Granulocytes to non-numeric [facility] results) [facility], ) Immature Grans 0.0 Normal (applies [facility] (S t (Abs) x10E3/uL to non-numeric [facility] results) [facility], ) ID Date Data Source [id number] 09/15/2017 12:00:00 AM EDT [facility] ([facility], ) Name Value Range Interpretation Description Data Sup porting Code Source(s) Document(s ) Vitamin D, 13.3 Below low normal [facility] (St 25-Hydroxy ng/mL [facility], ) ID Date Data Source [id number] 09/15/2017 12:00:00 AM EDT [facility] ([facility], ) Name Value Range Interpretation Code Description Data Cony rce(s) Supporting Document(s ) TSH 4.040 Normal (applies to [facility] (St uIU/mL non-numeric results) [facility]) ID Date Data Source [id number] 09/15/2017 12:00:00 AM EDT [facility] ([facility], ) Name Value Range Interpretation Description Data Sup porting Code Source(s) Document(s ) Glucose, Serum 117 Above high [facility] (St mg/dL normal [facility], ) Creatinine, Serum 0.90 Normal (applies [facility] (St mg/dL to non-numeric [facility] results) [facility], ) Urea nitrogen 23 mg/dL Normal (applies [facility] (St [Mass/volume] in to non-numeric [facility] Serum or Plasma results) [facility], ) eGFR If NonAfricn 96 Normal (applies [facility] (St Am mL/min/1 to non-numeric [facility] .73 results) [facility], ) eGFR If Africn Am 111 Normal (applies [facility] (St mL/min/1 to non-numeric [facility] .73 results) [facility], ) Sodium 136 Normal (applies [facility] (St [Moles/volume] in mmol/L to non-numeric [facility] Serum or Plasma results) [facility]) BUN/Creatinine 26 Above high [facility] (St Ratio normal [facility], ) Potassium, Serum 4.6 Normal (applies [facility] (St mmol/L to non-numeric [facility] results) [facility], ) Chloride 99 Normal (applies [facility] (St [Moles/volume] in mmol/L to non-numeric [facility] Serum or Plasma results) [facility], ) Protein 6.6 g/dL Normal (applies [facility] (St [Mass/volume] in to non-numeric [facility] Serum or Plasma results) [facility]) Calcium, Serum 9.1 Normal (applies [facility] (S t mg/dL to non-numeric [facility] results) [facility]) Albumin, Serum 4.3 g/dL Normal (applies [facility] (S t to non-numeric [facility] results) [facility], ) A/G Ratio 1.9 Normal (applies [facility] (St to non-numeric [facility] results) [facility]) Globulin, Total 2.3 g/dL Normal (applies [facility] ( St to non-numeric [facility] results) [facility]) Bilirubin.total 0.2 Normal (applies [facility] ( St [Mass/volume] in mg/dL to non-numeric [facility] Serum or Plasma results) [facility], ) Alkaline 134 IU/L Above high [facility] (St Phosphatase, S normal [facility]) Aspartate 21 IU/L Normal (applies [facility] (St aminotransferase to non-numeric [facility] [Enzymatic results) [facility], activity/volume] in PC) Serum or Plasma ID Date Data Source [id number] 09/15/2017 12:00:00 AM EDT [facility], ) Name Value Range Interpretation Description Data Sup porting Code Source(s) Document(s ) Erythrocytes 4.25 Normal (applies [facility] (St [#/volume] in x10E6/uL to non-numeric [facility] Blood by results) [facility], ) Automated count Leukocytes 6.7 Normal (applies [facility] (St [#/volume] in x10E3/uL to non-numeric [facility] Blood by results) [facility], ) Automated count Hemoglobin 13.1 Normal (applies [facility] (St [Mass/volume] in g/dL to non-numeric [facility] Blood results) [facility], ) MCV 91 fL Normal (applies [facility] (St to non-numeric [facility] results) [facility], ) Hematocrit 38.8 % Normal (applies [facility] (St [Volume to non-numeric [facility] Fraction] of results) [facility], ) Blood by Automated count MCH 30.8 pg Normal (applies [facility] (St to non-numeric [facility] results) [facility], ) RDW 13.9 % Normal (applies [facility] (St to non-numeric [facility] results) [facility], ) MCHC 33.8 Normal (applies [facility] (St g/dL to non-numeric [facility] results) [facility], ) Platelets 195 Normal (applies [facility] (St [#/area] in x10E3/uL to non-numeric [facility] Blood by results) [facility], ) Microscopy high power field Neutrophils [#] 53 % Normal (applies [facility] ( St in Body fluid by to non-numeric [facility] Manual count results) [facility], ) Monocytes 8 % Normal (applies [facility] (St [#/volume] in to non-numeric [facility] Cord blood results) [facility], ) Lymphs 34 % Normal (applies [facility] (St to non-numeric [facility] results) [facility], ) Eos 4 % Normal (applies [facility] (St to non-numeric [facility] results) [facility], ) Basos 1 % Normal (applies [facility] (St to non-numeric [facility] results) [facility], ) Neutrophils 3.6 Normal (applies [facility] (St (Absolute) x10E3/uL to non-numeric [facility] results) [facility], ) Lymphs 2.2 Normal (applies [facility] (St (Absolute) x10E3/uL to non-numeric [facility] results) [facility], ) Monocytes(Absolu 0.5 Normal (applies [facility] (St te) x10E3/uL to non-numeric [facility] results) [facility], ) Baso (Absolute) 0.0 Normal (applies [facility] ( St x10E3/uL to non-numeric [facility] results) [facility], ) Eos (Absolute) 0.2 Normal (applies [facility] (S t x10E3/uL to non-numeric [facility] results) [facility], ) Immature 0 % Normal (applies [facility] (St Granulocytes to non-numeric [facility] results) [facility], ) Immature Grans 0.0 Normal (applies [facility] (S t (Abs) x10E3/uL to non-numeric [facility] results) [facility], ) ID Date Data Source [id number] 03/10/2017 12:00:00 AM EDT [facility] ([facility], ) Name Value Range Interpretation Code Description Data Cony rce(s) Supporting Document(s ) ID Date Data Source [id number] 03/10/2017 12:00:00 AM EDT [facility], ) Name Value Range Interpretation Code Description Data Cony rce(s) Supporting Document(s ) PDF Image . Normal (applies to [facility] (St non-numeric results) [facility], ) ID Date Data Source [id number] 03/10/2017 12:00:00 AM EDT [facility] ([facility], ) Name Value Range Interpretation Description Data Sup porting Code Source(s) Document(s ) Prostate 0.3 ng/mL Normal (applies to [facility] (St Specific Ag, non-numeric [facility] Serum results) [facility], ) ID Date Data Source [id number] 03/10/2017 12:00:00 AM EDT [facility], ) Name Value Range Interpretation Description Data Sup porting Code Source(s) Document(s ) Hemoglobin 5.4 % Normal (applies to [facility] (St A1c/Hemoglobin. non-numeric [facility] total in Blood results) [facility], ) ID Date Data Source [id number] 03/10/2017 12:00:00 AM EDT [facility] ([facility], ) Name Value Range Interpretation Description Data Sup porting Code Source(s) Document(s ) Thyroxine 9.7 ug/dL Normal (applies to [facility] (St (T4) non-numeric [facility] results) [facility], ) T3 Uptake 27 % Normal (applies to [facility] (St non-numeric [facility] results) [facility], ) Free 2.6 Normal (applies to [facility] (St Thyroxine non-numeric [facility] Index results) [facility], ) ID Date Data Source [id number] 03/10/2017 12:00:00 AM EDT [facility] ([facility], ) Name Value Range Interpretation Description Data Sup porting Code Source(s) Document(s ) Iron 313 ug/dL Normal (applies to [facility] (St Bind.Cap.(TIBC non-numeric [facility] ) results) [facility], ) UIBC 270 ug/dL Normal (applies to [facility] (St non-numeric [facility] results) [facility], ) Iron 43 ug/dL Normal (applies to [facility] (St [Mass/volume] non-numeric [facility] in Serum or results) [facility], ) Plasma Iron 14 % Below low normal [facility] (St saturation [facility] [[facility], ) Fraction] in Serum or Plasma ID Date Data Source [id number] 03/10/2017 12:00:00 AM EDT [facility] ([facility], ) Name Value Range Interpretation Description Data Sup porting Code Source(s) Document(s ) Cholesterol 132 Normal (applies [facility] (St [Mass/volume] in mg/dL to non-numeric [facility] Serum or Plasma results) [facility], ) Triglyceride 74 mg/dL Normal (applies [facility] (St [Mass/volume] in to non-numeric [facility] Serum or Plasma results) [facility], ) HDL Cholesterol 64 mg/dL Normal (applies [facility] ( St to non-numeric [facility] results) [facility], ) VLDL Cholesterol 15 mg/dL Normal (applies [facility] (St Kd to non-numeric [facility] results) [facility], ) LDL Cholesterol 53 mg/dL Normal (applies [facility] ( St Calc to non-numeric [facility] results) [facility], ) ID Date Data Source [id number] 03/10/2017 12:00:00 AM EDT [facility] ([facility], ) Name Value Range Interpretation Description Data Sup porting Code Source(s) Document(s ) Glucose, Serum 33 mg/dL Below absolute [facility] (St low-off [facility] instrument scale [facility], ) Creatinine, Serum 0.82 Normal (applies [facility] (St mg/dL to non-numeric [facility] results) [facility], ) Urea nitrogen 20 mg/dL Normal (applies [facility] (St [Mass/volume] in to non-numeric [facility] Serum or Plasma results) [facility], ) eGFR If NonAfricn 100 Normal (applies [facility] (St Am mL/min/1 to non-numeric [facility] .73 results) [facility], ) eGFR If Africn Am 116 Normal (applies [facility] (St mL/min/1 to non-numeric [facility] .73 results) [facility], ) BUN/Creatinine 24 Above high [facility] (St Ratio normal [facility], ) Sodium 140 Normal (applies [facility] (St [Moles/volume] in mmol/L to non-numeric [facility] Serum or Plasma results) [facility], ) Potassium, Serum 4.6 Normal (applies [facility] (St mmol/L to non-numeric [facility] results) [facility], ) Carbon dioxide, 19 Normal (applies [facility] ( St total mmol/L to non-numeric [facility] [Moles/volume] in results) [facility], Serum or Plasma PC) Chloride 93 Below low normal [facility] (St [Moles/volume] in mmol/L [facility] Serum or Plasma [facility], ) Calcium, Serum 9.9 Normal (applies [facility] (S t mg/dL to non-numeric [facility] results) [facility], ) Protein 6.8 g/dL Normal (applies [facility] (St [Mass/volume] in to non-numeric [facility] Serum or Plasma results) [facility], ) Albumin, Serum 4.6 g/dL Normal (applies [facility] (S t to non-numeric [facility] results) [facility], ) A/G Ratio 2.1 Normal (applies [facility] (St to non-numeric [facility] results) [facility], ) Globulin, Total 2.2 g/dL Normal (applies [facility] ( St to non-numeric [facility] results) [facility], ) Bilirubin.total 0.2 Normal (applies [facility] ( St [Mass/volume] in mg/dL to non-numeric [facility] Serum or Plasma results) [facility], ) Alkaline 103 IU/L Normal (applies [facility] (St Phosphatase, S to non-numeric [facility] results) [facility], ) Aspartate 20 IU/L Normal (applies [facility] (St aminotransferase to non-numeric [facility] [Enzymatic results) [facility], activity/volume] in ) Serum or Plasma Alanine 11 IU/L Normal (applies [facility] (St aminotransferase to non-numeric [facility] [Enzymatic results) [facility], activity/volume] in ) Serum or Plasma ID Date Data Source [id number] 03/10/2017 12:00:00 AM EDT [facility] ([facility], ) Name Value Range Interpretation Description Data Sup porting Code Source(s) Document(s ) Leukocytes 6.7 Normal (applies [facility] (St [#/volume] in x10E3/uL to non-numeric [facility] Blood by results) [facility], ) Automated count Erythrocytes 4.48 Normal (applies [facility] (St [#/volume] in x10E6/uL to non-numeric [facility] Blood by results) [facility], ) Automated count Hemoglobin 13.1 Normal (applies [facility] (St [Mass/volume] in g/dL to non-numeric [facility] Blood results) [facility], ) Hematocrit 40.1 % Normal (applies [facility] (St [Volume to non-numeric [facility] Fraction] of results) [facility], ) Blood by Automated count MCV 90 fL Normal (applies [facility] (St to non-numeric [facility] results) [facility], ) MCH 29.2 pg Normal (applies [facility] (St to non-numeric [facility] results) [facility], ) MCHC 32.7 Normal (applies [facility] (St g/dL to non-numeric [facility] results) [facility], ) RDW 15.7 % Above high normal [facility] ([facility], ) Platelets 185 Normal (applies [facility] (St [#/area] in x10E3/uL to non-numeric [facility] Blood by results) [facility], ) Microscopy high power field Neutrophils [#] 64 % Normal (applies [facility] ( St in Body fluid by to non-numeric [facility] Manual count results) [facility], ) Monocytes 8 % Normal (applies [facility] (St [#/volume] in to non-numeric [facility] Cord blood results) [facility], ) Lymphs 25 % Normal (applies [facility] (St to non-numeric [facility] results) [facility], ) Eos 3 % Normal (applies [facility] (St to non-numeric [facility] results) [facility], ) Basos 0 % Normal (applies [facility] (St to non-numeric [facility] results) [facility], ) Neutrophils 4.2 Normal (applies [facility] (St (Absolute) x10E3/uL to non-numeric [facility] results) [facility], ) Lymphs 1.7 Normal (applies [facility] (St (Absolute) x10E3/uL to non-numeric [facility] results) [facility], ) Monocytes(Absolu 0.5 Normal (applies [facility] (St te) x10E3/uL to non-numeric [facility] results) [facility], ) Baso (Absolute) 0.0 Normal (applies [facility] ( St x10E3/uL to non-numeric [facility] results) [facility], ) Eos (Absolute) 0.2 Normal (applies [facility] (S t x10E3/uL to non-numeric [facility] results) [facility], ) Immature 0 % Normal (applies [facility] (St Granulocytes to non-numeric [facility] results) [facility], ) Immature Grans 0.0 Normal (applies [facility] (S t (Abs) x10E3/uL to non-numeric [facility] results) [facility], ) ID Date Data Source [id number] 03/10/2017 12:00:00 AM EDT [facility] ([facility], ) Name Value Range Interpretation Code Description Data Coyn rce(s) Supporting Document(s ) ID Date Data Source [id number] 03/10/2017 12:00:00 AM EDT [facility] ([facility], ) Name Value Range Interpretation Code Description Data Cony rce(s) Supporting Document(s ) PDF Image . Normal (applies to [facility] (St non-numeric results) [facility]) ID Date Data Source [id number] 03/10/2017 12:00:00 AM EDT [facility] ([facility], ) Name Value Range Interpretation Description Data Sup porting Code Source(s) Document(s ) Prostate 0.3 ng/mL Normal (applies to [facility] (St Specific Ag, non-numeric [facility] Serum results) [facility]) ID Date Data Source [id number] 03/10/2017 12:00:00 AM EDT [facility] ([facility], ) Name Value Range Interpretation Description Data Sup porting Code Source(s) Document(s ) Hemoglobin 5.4 % Normal (applies to [facility] (St A1c/Hemoglobin. non-numeric [facility] total in Blood results) [facility]) ID Date Data Source [id number] 03/10/2017 12:00:00 AM EDT [facility] ([facility], ) Name Value Range Interpretation Description Data Sup porting Code Source(s) Document(s ) T3 Uptake 27 % Normal (applies to [facility] (St non-numeric [facility] results) [facility]) Thyroxine 9.7 ug/dL Normal (applies to [facility] (St (T4) non-numeric [facility] results) [facility]) Free 2.6 Normal (applies to [facility] (St Thyroxine non-numeric [facility] Index results) [facility]) ID Date Data Source [id number] 03/10/2017 12:00:00 AM EDT [facility] ([facility], ) Name Value Range Interpretation Description Data Sup porting Code Source(s) Document(s ) UIBC 270 ug/dL Normal (applies to [facility] (St non-numeric [facility] results) [facility]) Iron 313 ug/dL Normal (applies to [facility] (St Bind.Cap.(TIBC non-numeric [facility] ) results) [facility]) Iron 43 ug/dL Normal (applies to [facility] (St [Mass/volume] non-numeric [facility] in Serum or results) [facility], ) Plasma Iron 14 % Below low normal [facility] (St saturation [facility] [[facility], ) Fraction] in Serum or Plasma ID Date Data Source [id number] 03/10/2017 12:00:00 AM EDT [facility] ([facility], ) Name Value Range Interpretation Description Data Sup porting Code Source(s) Document(s ) Cholesterol 132 Normal (applies [facility] (St [Mass/volume] in mg/dL to non-numeric [facility] Serum or Plasma results) [facility], ) Triglyceride 74 mg/dL Normal (applies [facility] (St [Mass/volume] in to non-numeric [facility] Serum or Plasma results) [facility], ) HDL Cholesterol 64 mg/dL Normal (applies [facility] ( St to non-numeric [facility] results) [facility], ) VLDL Cholesterol 15 mg/dL Normal (applies [facility] (St Kd to non-numeric [facility] results) [facility], ) LDL Cholesterol 53 mg/dL Normal (applies [facility] ( St Calc to non-numeric [facility] results) [facility], ) ID Date Data Source [id number] 03/10/2017 12:00:00 AM EDT [facility] ([facility], ) Name Value Range Interpretation Description Data Sup porting Code Source(s) Document(s ) Glucose, Serum 33 mg/dL Below absolute [facility] (St low-off [facility] instrument scale [facility], ) Urea nitrogen 20 mg/dL Normal (applies [facility] (St [Mass/volume] in to non-numeric [facility] Serum or Plasma results) [facility], ) Creatinine, Serum 0.82 Normal (applies [facility] (St mg/dL to non-numeric [facility] results) [facility], ) eGFR If NonAfricn 100 Normal (applies [facility] (St Am mL/min/1 to non-numeric [facility] .73 results) [facility], ) eGFR If Africn Am 116 Normal (applies [facility] (St mL/min/1 to non-numeric [facility] .73 results) [facility], ) BUN/Creatinine 24 Above high [facility] (St Ratio normal [facility], ) Sodium 140 Normal (applies [facility] (St [Moles/volume] in mmol/L to non-numeric [facility] Serum or Plasma results) [facility], ) Potassium, Serum 4.6 Normal (applies [facility] (St mmol/L to non-numeric [facility] results) [facility], ) Carbon dioxide, 19 Normal (applies [facility] ( St total mmol/L to non-numeric [facility] [Moles/volume] in results) [facility], Serum or Plasma [facility]) Chloride 93 Below low normal [facility] (St [Moles/volume] in mmol/L [facility] Serum or Plasma Medical, ) Calcium, Serum 9.9 Normal (applies [facility] (S t mg/dL to non-numeric [facility] results) [facility], ) Protein 6.8 g/dL Normal (applies [facility] (St [Mass/volume] in to non-numeric [facility] Serum or Plasma results) [facility], ) Albumin, Serum 4.6 g/dL Normal (applies MEDGEN (S t to non-numeric [facility] results) [facility], ) Globulin, Total 2.2 g/dL Normal (applies MEDGEN ( St to non-numeric [facility] results) [facility], ) Bilirubin.total 0.2 Normal (applies MEDGEN ( St [Mass/volume] in mg/dL to non-numeric [facility] Serum or Plasma results) [facility], ) A/G Ratio 2.1 Normal (applies MEDGEN (St to non-numeric [facility] results) [facility], ) Alkaline 103 IU/L Normal (applies MEDGEN (St Phosphatase, S to non-numeric [facility] results) [facility], ) Aspartate 20 IU/L Normal (applies MEDGEN (St aminotransferase to non-numeric [facility] [Enzymatic results) Medical, activity/volume] in ) Serum or Plasma Alanine 11 IU/L Normal (applies MEDGEN (St aminotransferase to non-numeric [facility] [Enzymatic results) Medical, activity/volume] in ) Serum or Plasma ID Date Data Source [id number] 03/10/2017 12:00:00 AM EDT MEDGEN ([facility], ) Name Value Range Interpretation Description Data Sup porting Code Source(s) Document(s ) Leukocytes 6.7 Normal (applies MEDGEN (St [#/volume] in x10E3/uL to non-numeric [facility] Blood by results) [facility], ) Automated count Erythrocytes 4.48 Normal (applies MEDGEN (St [#/volume] in x10E6/uL to non-numeric [facility] Blood by results) [facility], ) Automated count Hemoglobin 13.1 Normal (applies MEDGEN (St [Mass/volume] in g/dL to non-numeric [facility] Blood results) [facility], ) Hematocrit 40.1 % Normal (applies MEDGEN (St [Volume to non-numeric [facility] Fraction] of results) [facility], ) Blood by Automated count MCV 90 fL Normal (applies MEDGEN (St to non-numeric [facility] results) [facility], ) MCH 29.2 pg Normal (applies MEDGEN (St to non-numeric [facility] results) [facility], ) MCHC 32.7 Normal (applies MEDGEN (St g/dL to non-numeric [facility] results) [facility], ) RDW 15.7 % Above high normal MEDGEN ([facility], ) Platelets 185 Normal (applies MEDGEN (St [#/area] in x10E3/uL to non-numeric [facility] Blood by results) [facility], ) Microscopy high power field Neutrophils [#] 64 % Normal (applies MEDGEN ( St in Body fluid by to non-numeric [facility] Manual count results) [facility], ) Lymphs 25 % Normal (applies MEDGEN (St to non-numeric [facility] results) [facility], ) Monocytes 8 % Normal (applies MEDGEN (St [#/volume] in to non-numeric [facility] Cord blood results) [facility], ) Eos 3 % Normal (applies MEDGEN (St to non-numeric [facility] results) [facility], ) Neutrophils 4.2 Normal (applies MEDGEN (St (Absolute) x10E3/uL to non-numeric [facility] results) [facility], ) Basos 0 % Normal (applies MEDGEN (St to non-numeric [facility] results) [facility], ) Lymphs 1.7 Normal (applies MEDGEN (St (Absolute) x10E3/uL to non-numeric [facility] results) [facility], ) Monocytes(Absolu 0.5 Normal (applies MEDGEN (St te) x10E3/uL to non-numeric [facility] results) [facility], ) Eos (Absolute) 0.2 Normal (applies MEDGEN (S t x10E3/uL to non-numeric [facility] results) [facility], ) Baso (Absolute) 0.0 Normal (applies MEDGEN ( St x10E3/uL to non-numeric [facility] results) [facility], ) Immature Grans 0.0 Normal (applies MEDGEN (S t (Abs) x10E3/uL to non-numeric [facility] results) [facility], ) Immature 0 % Normal (applies MEDGEN (St Granulocytes to non-numeric [facility] results) [facility], ) Procedure Social History Code Duration Value Status Description Data Source(s ) Smoking 07/03/2020 Current Smoker completed Current Smoker eCW3 ( João 12:00:00 AM [facility]) Smoking 06/27/2020 [place] MEDGEN (St 12:00:00 AM EDT Disabled 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-1PPD 35 pack smoker-1PPD 35 years No drinking pack years No IVDA/DA (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 Smoking 06/27/2020 Unknown if ever completed Unknown if ever MEDG EN (St 12:00:00 AM EDT smoked smoked [facility] [employer] [employer]) Smoking 06/05/2020 Current Smoker completed Current Smoker eCW3 ( [place] 12:00:00 AM [facility]) Smoking 05/26/2020 [place] MEDGEN (St 12:00:00 AM EDT Disabled 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-1PPD 35 pack smoker-1PPD 35 years No drinking pack years No IVDA/DA (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 Smoking 05/26/2020 Unknown if ever completed Unknown if ever MEDG EN (St 12:00:00 AM EDT smoked smoked [facility] [employer]) Smoking 05/07/2020 Current Smoker completed Current Smoker eCW3 ( [place] 12:00:00 AM [facility]) Smoking 04/02/2020 Current Smoker completed Current Smoker eCW3 ( [place] 12:00:00 AM [facility]) Smoking 04/02/2020 Current Smoker completed Current Smoker eCW3 ( [place] 12:00:00 AM [facility]) Smoking 11/23/2019 Daily Smoker completed Daily Smoker [facility] 10:44:00 AM EST Medical C enter Smoking 11/23/2019 Daily Smoker completed Daily Smoker [facility] 10:39:00 AM EST Medical C enter Smoking 11/23/2019 Daily Smoker completed Daily Smoker [facility] 10:35:00 AM EST Medical C enter Smoking 09/04/2019 Current Smoker completed Current Smoker eCW3 ( [place] 12:00:00 AM [facility]) Smoking 09/04/2019 Current Smoker completed Current Smoker eCW3 ( [place] 12:00:00 AM [facility]) Smoking 09/04/2019 Current Smoker completed Current Smoker eCW3 ( [place] 12:00:00 AM [facility]) Smoking 06/05/2019 Current Smoker completed Current Smoker eCW3 ( [place] 12:00:00 AM [facility]) Smoking 01/02/2019 Current Smoker completed Current Smoker eCW3 ( [place] 12:00:00 AM [facility]) Current Smoker completed Current Smoker eCW3 ( [facility]) Current Smoker completed Current Smoker eCW3 ( [facility]) Current Smoker completed Current Smoker eCW3 ( [facility]) Current Smoker completed Current Smoker eCW3 ( [facility]) Current Smoker completed Current Smoker eCW3 ( [facility]) Current Smoker completed Current Smoker eCW3 ( [facility]) Current Smoker completed Current Smoker eCW3 ( [facility]) Current Smoker completed Current Smoker eCW3 ( [facility]) Current Smoker completed Current Smoker eCW3 ( [facility]) Current Smoker completed Current Smoker eCW3 ( [facility]) Vital Signs ID Date Data Source UNK Name Value Range Interpretation Code Description Data Source(s) Heart rate 66 /min 66 /min [facility] ([facility]) Respiratory rate 18 /min 18 /min [facility] ( [facility]) Body temperature 98.2 F 98.2 F [facility] ( [facility]) Inhaled oxygen 98 % 98 % MED[facility] ([facility]) Diastolic blood 84 mm[Hg] 84 mm[Hg] MEDGEN ([facility]) Systolic blood 115 mm[Hg] 115 mm[Hg] MEDGEN ([facility]) Body height 70 in 70 in [facility] ([facility]) Heart rate 79 /min 79 /min MED[facility] ([facility]) Respiratory rate 14 /min 14 /min MED[facility] ( [facility]) Inhaled oxygen 97 % 97 % MEDGEN (St concentration [facility], ) Diastolic blood 82 mm[Hg] 82 mm[Hg] MEDGEN (S t pressure [facility] , ) Systolic blood 125 mm[Hg] 125 mm[Hg] MEDGEN (St pressure [facility] , ) Heart rate 79 /min 79 /min MEDGEN ([facility] , ) Respiratory rate 14 /min 14 /min MEDGEN ( [facility] , ) Inhaled oxygen 97 % 97 % MEDGEN (St concentration [facility], ) Diastolic blood 82 mm[Hg] 82 mm[Hg] MEDGEN (S t pressure [facility] , ) Systolic blood 125 mm[Hg] 125 mm[Hg] MEDGEN (St pressure [facility] , ) Body temperature 36.543254 [id number] [facility] Respiratory rate 18 /min 18 /min [facility] Heart rate 88 /min 88 /min [facility] Diastolic blood 91 mm[Hg] 91 mm[Hg] [facility] Systolic blood 141 mm[Hg] 141 mm[Hg] [facility] Body temperature 36.884082 36.809569 [facility] Respiratory rate 18 /min 18 /min [facility] Oxygen saturation 95 % 95 % [facility] Arterial blood [facility] by Pulse oximetry Heart rate 89 /min 89 /min [facility] Diastolic blood 88 mm[Hg] 88 mm[Hg] [facility] Systolic blood 137 mm[Hg] 137 mm[Hg] [facility] Body temperature 36.354877 36.003255 [facility] Respiratory rate 18 /min 18 /min [facility] Heart rate 81 /min 81 /min [facility] Diastolic blood 66 mm[Hg] 66 mm[Hg] [facility] Systolic blood 137 mm[Hg] 137 mm[Hg] [facility] Body temperature 36.833171 36.559845 [facility] Respiratory rate 17 /min 17 /min [facility] Oxygen saturation 98 % 98 % [facility] Arterial blood [facility] by Pulse oximetry Heart rate 90 /min 90 /min [facility] Diastolic blood 91 mm[Hg] 91 mm[Hg] [facility] Systolic blood 145 mm[Hg] 145 mm[Hg] [facility] Diastolic blood 72 mm[Hg] 72 mm[Hg] eCW3 ([facility]) Systolic blood 129 mm[Hg] 129 mm[Hg] eCW3 ([facility]) Body temperature 97.7 [degF] 97.7 [degF] eCW3 ( [facility]) Body mass index 29.41 kg/m2 29.41 kg/m2 eCW3 ([facility]son (BMI) [Ratio] [facility]) Body weight 205 [lb_av] 205 [lb_av] eCW3 ([facility]) Body height 70 [in_i] 70 [in_i] eCW3 ([facility]) Heart rate 77 /min 77 /min MEDGEN ([facility] , ) Respiratory rate 15 /min 15 /min MEDGEN ( [facility]) Body temperature 98.4 F 98.4 F MEDGEN ( [facility]) Inhaled oxygen 100 % 100 % MEDGEN ([facility]) Body mass index 31.5 kg/m2 31.5 kg/m2 MEDGEN (S t (BMI) [Ratio] [facility]) Diastolic blood 75 mm[Hg] 75 mm[Hg] MEDGEN (S t [facility]) Systolic blood 111 mm[Hg] 111 mm[Hg] MEDGEN ([facility]) Body weight 213 lb 213 lb MEDGEN ([facility]) Body height 69 in 69 in MEDGEN ([facility]) Heart rate 77 /min 77 /min MEDGEN ([facility]) Respiratory rate 15 /min 15 /min MEDGEN ( [facility]) Body temperature 98.4 F 98.4 F MEDGEN ( [facility]) Inhaled oxygen 100 % 100 % MEDGEN ([facility]) Body mass index 31.5 kg/m2 31.5 kg/m2 MEDGEN (S t (BMI) [Ratio] [facility], ) Diastolic blood 75 mm[Hg] 75 mm[Hg] MEDGEN (S t pressure [facility]) Systolic blood 111 mm[Hg] 111 mm[Hg] MEDGEN ([facility]) Body weight 213 lb 213 lb MEDGEN ([facility]) Body height 69 in 69 in MEDGEN ([facility]) Diastolic blood 71 mm[Hg] 71 mm[Hg] eCW3 ([facility]) Systolic blood 110 mm[Hg] 110 mm[Hg] eCW3 ([facility]) Body temperature 97.9 [degF] 97.9 [degF] eCW3 ( [facility]) Body mass index 28.41 kg/m2 28.41 kg/m2 eCW3 (H son (BMI) [Ratio] [facility]) Body weight 198 [lb_av] 198 [lb_av] eCW3 ([facility]) Body height 70 [in_i] 70 [in_i] eCW3 ([facility]) Heart rate 87 /min 87 /min MEDGEN ([facility]) Body temperature 97.9 F 97.9 F MEDGEN ( [facility]) Inhaled oxygen 97 % 97 % MEDGEN ([facility]) Body mass index 31.5 kg/m2 31.5 kg/m2 MEDGEN (S t (BMI) [Ratio] [facility], ) Diastolic blood 62 mm[Hg] 62 mm[Hg] MEDGEN (S t pressure [facility]) Systolic blood 102 mm[Hg] 102 mm[Hg] MEDGEN ([facility]) Body weight 195 lb 195 lb MEDGEN ([facility]) Body height 66 in 66 in MEDGEN ([facility]) Heart rate 87 /min 87 /min MEDGEN ([facility]) Body temperature 97.9 F 97.9 F MEDGEN ( [facility]) Inhaled oxygen 97 % 97 % MEDGEN ([facility]) Body mass index 31.5 kg/m2 31.5 kg/m2 MEDGEN (S t (BMI) [Ratio] [facility]) Diastolic blood 62 mm[Hg] 62 mm[Hg] MEDGEN (S t [facility]) Systolic blood 102 mm[Hg] 102 mm[Hg] MEDGEN ([facility]) Body weight 195 lb 195 lb MEDGEN ([facility]) Body height 66 in 66 in MEDGEN ([facility]) Diastolic blood 70 mm[Hg] 70 mm[Hg] eCW3 ([facility]) Systolic blood 109 mm[Hg] 109 mm[Hg] eCW3 ([facility]) Body temperature 98.0 [degF] 98.0 [degF] eCW3 ( [facility]) Body mass index 27.98 kg/m2 27.98 kg/m2 eCW3 (H son (BMI) [Ratio] [facility]) Body weight 195 [lb_av] 195 [lb_av] eCW3 ([facility]) Body height 70 [in_i] 70 [in_i] eCW3 ([facility]) Heart rate 73 /min 73 /min MEDGEN ([facility]) Body temperature 97.9 F 97.9 F MEDGEN ( [facility]) Inhaled oxygen 97 % 97 % MEDGEN ([facility]) Diastolic blood 61 mm[Hg] 61 mm[Hg] MEDGEN (S t [facility]) Systolic blood 98 mm[Hg] 98 mm[Hg] MEDGEN ([facility]) Body weight 194 lb 194 lb MEDGEN ([facility]) Heart rate 73 /min 73 /min MEDGEN ([facility]) Body temperature 97.9 F 97.9 F MEDGEN ( [facility]) Inhaled oxygen 97 % 97 % MEDGEN ([facility]) Diastolic blood 61 mm[Hg] 61 mm[Hg] MEDGEN (S t [facility]) Systolic blood 98 mm[Hg] 98 mm[Hg] MEDGEN ([facility]) Body weight 194 lb 194 lb MEDGEN ([facility] , ) Heart rate 75 /min 75 /min MEDGEN ([facility] , ) Body temperature 98 F 98 F MEDGEN ( [facility] , ) Inhaled oxygen 97 % 97 % MEDGEN ([facility], ) Diastolic blood 57 mm[Hg] 57 mm[Hg] MEDGEN (S t pressure [facility] , ) Systolic blood 101 mm[Hg] 101 mm[Hg] MEDGEN ([facility] [place] [place] , ) Heart rate 75 /min 75 /min MEDGEN ([facility] , ) Body temperature 98 F 98 F MEDGEN ( [facility] , ) Inhaled oxygen 97 % 97 % MEDGEN ([facility], ) Diastolic blood 57 mm[Hg] 57 mm[Hg] MEDGEN (S t pressure [facility] , ) Systolic blood 101 mm[Hg] 101 mm[Hg] MEDGEN ([facility] , ) Diastolic blood 75 mm[Hg] 75 mm[Hg] eCW3 ([facility]) Systolic blood 115 mm[Hg] 115 mm[Hg] eCW3 ([facility]) Body temperature 98.0 [degF] 98.0 [degF] eCW3 ( [facility]) Body mass index 27.98 kg/m2 27.98 kg/m2 eCW3 (H udyunior (BMI) [Ratio] [facility]) Body weight 195 [lb_av] 195 [lb_av] eCW3 ([facility]) Body height 70 [in_i] 70 [in_i] eCW3 ([facility]) Diastolic blood 70 mm[Hg] 70 mm[Hg] eCW3 ([facility]) Systolic blood 113 mm[Hg] 113 mm[Hg] eCW3 ([facility]) Body temperature 97.7 [degF] 97.7 [degF] eCW3 ( [facility]) Heart rate 18 /min 18 /min eCW3 ([facility]) Body mass index 27.55 kg/m2 27.55 kg/m2 eCW3 ([facility]son (BMI) [Ratio] [facility]) Body weight 192 [lb_av] 192 [lb_av] eCW3 ([facility]) Body height 70 [in_i] 70 [in_i] eCW3 ([facility]) Diastolic blood 78 mm[Hg] 78 mm[Hg] eCW3 ([facility]) Systolic blood 110 mm[Hg] 110 mm[Hg] eCW3 ([facility]) Body temperature 97.3 [degF] 97.3 [degF] eCW3 ( [facility]) Body mass index 27.83 kg/m2 27.83 kg/m2 eCW3 ([facility] (BMI) [Ratio] [facility]) Body weight 194 [lb_av] 194 [lb_av] eCW3 ([facility]) Body height 70 [in_i] 70 [in_i] eCW3 ([facility]) Diastolic blood 74 mm[Hg] 74 mm[Hg] eCW3 ([facility]) Systolic blood 118 mm[Hg] 118 mm[Hg] eCW3 ([facility]) Body temperature 97.9 [degF] 97.9 [degF] eCW3 ( [facility]) Heart rate 18 /min 18 /min eCW3 ([facility]) Body mass index 28.41 kg/m2 28.41 kg/m2 eCW3 ([facility]son (BMI) [Ratio] [facility]) Body weight 198 [lb_av] 198 [lb_av] eCW3 ([facility]) Body height 70 [in_i] 70 [in_i] eCW3 ([facility]) Diastolic blood 85 mm[Hg] 85 mm[Hg] eCW3 ([facility]) Systolic blood 135 mm[Hg] 135 mm[Hg] eCW3 ([facility]) Body temperature 97.7 [degF] 97.7 [degF] eCW3 ( [facility]) Heart rate 18 /min 18 /min eCW3 ([facility]) Body mass index 29.70 kg/m2 29.70 kg/m2 eCW3 ([facility]son (BMI) [Ratio] [facility]) Body weight 207 [lb_av] 207 [lb_av] eCW3 ([facility]) Body height 70 [in_i] 70 [in_i] eCW3 ([facility]) Heart rate 76 /min 76 /min MEDGEN ([facility] , ) Body temperature 97.9 F 97.9 F MEDGEN ( [facility] , ) Diastolic blood 84 mm[Hg] 84 mm[Hg] MEDGEN (S t pressure [facility] , ) Systolic blood 126 mm[Hg] 126 mm[Hg] MEDGEN ([facility] , ) Heart rate 76 /min 76 /min MEDGEN ([facility] , ) Body temperature 97.9 F 97.9 F MEDGEN ( [facility] , ) Diastolic blood 84 mm[Hg] 84 mm[Hg] MEDGEN (S t pressure [facility] , ) Systolic blood 126 mm[Hg] 126 mm[Hg] MEDGEN ([facility] , ) Diastolic blood 76 mm[Hg] 76 mm[Hg] eCW3 ([facility]) Systolic blood 133 mm[Hg] 133 mm[Hg] eCW3 ([facility]) Body temperature 97.8 [degF] 97.8 [degF] eCW3 ( [facility]) Heart rate 18 /min 18 /min eCW3 ([facility]) Body mass index 31.28 kg/m2 31.28 kg/m2 eCW3 (H jorge luisson (BMI) [Ratio] [facility]) Body weight 218 [lb_av] 218 [lb_av] eCW3 ([facility]) Body height 70 [in_i] 70 [in_i] eCW3 ([facility]) Heart rate 92 /min 92 /min MEDGEN ([facility] , ) Inhaled oxygen 97 % 97 % MEDGEN ([facility], ) Body mass index 35.8 kg/m2 35.8 kg/m2 MEDGEN (S t (BMI) [Ratio] [facility], ) Diastolic blood 70 mm[Hg] 70 mm[Hg] MEDGEN (S t pressure [facility] , ) Systolic blood 110 mm[Hg] 110 mm[Hg] MEDGEN ([facility]) Body weight 222 lb 222 lb MEDGEN ([facility]) Body height 66 in 66 in MEDGEN ([facility]) Pain severity - 1 1 MEDGEN (S t 0-10 verbal [facility] rating [Score] - ) Reported Heart rate 92 /min 92 /min MEDGEN ([facility]) Respiratory rate 16 /min 16 /min MEDGEN ( [facility]) Inhaled oxygen 97 % 97 % MEDGEN ([facility], ) Body mass index 35.8 kg/m2 35.8 kg/m2 MEDGEN (S t (BMI) [Ratio] [facility], ) Diastolic blood 70 mm[Hg] 70 mm[Hg] MEDGEN (S [facility]) Systolic blood 110 mm[Hg] 110 mm[Hg] MEDGEN ([facility]) Body weight 222 lb 222 lb MEDGEN ([facility]) Body height 66 in 66 in MEDGEN ([facility]) Heart rate 92 /min 92 /min MEDGEN ([facility]) Inhaled oxygen 97 % 97 % MEDGEN ([facility], ) Body mass index 35.8 kg/m2 35.8 kg/m2 MEDGEN (S t (BMI) [Ratio] [facility], ) Diastolic blood 70 mm[Hg] 70 mm[Hg] MEDGEN (S t [facility]) Systolic blood 110 mm[Hg] 110 mm[Hg] MEDGEN ([facility]) Body weight 222 lb 222 lb MEDGEN ([facility]) Body height 66 in 66 in MEDGEN ([facility]) Heart rate 92 /min 92 /min MEDGEN ([facility]) Respiratory rate 16 /min 16 /min MEDGEN ( [facility]) Inhaled oxygen 97 % 97 % MEDGEN ([facility]) Body mass index 35.8 kg/m2 35.8 kg/m2 MEDGEN (S t (BMI) [Ratio] [facility], ) Diastolic blood 70 mm[Hg] 70 mm[Hg] MEDGEN (S t pressure [facility] , ) Systolic blood 110 mm[Hg] 110 mm[Hg] MEDGEN ([facility] , ) Body weight 222 lb 222 lb MEDGEN ([facility]) Body height 66 in 66 in MEDGEN ([facility] , ) Diastolic blood 70 mm[Hg] 70 mm[Hg] eCW3 ([facility]) Systolic blood 104 mm[Hg] 104 mm[Hg] eCW3 ([facility]) Body temperature 97.9 [degF] 97.9 [degF] eCW3 ( [facility]) Heart rate 18 /min 18 /min eCW3 ([facility]) Body mass index 32.42 kg/m2 32.42 kg/m2 eCW3 ([facility]son (BMI) [Ratio] [facility]) Body weight 226 [lb_av] 226 [lb_av] eCW3 ([facility]) Body height 70 [in_i] 70 [in_i] eCW3 ([facility]) Respiratory rate 16 /min 16 /min MEDGEN ( [facility] , ) Inhaled oxygen 99 % 99 % MEDGEN ([facility], ) Body mass index 35.7 kg/m2 35.7 kg/m2 MEDGEN (S t (BMI) [Ratio] [facility], ) Diastolic blood 82 mm[Hg] 82 mm[Hg] MEDGEN (S t pressure [facility] , ) Systolic blood 124 mm[Hg] 124 mm[Hg] MEDGEN ([facility] , ) Body weight 221 lb 221 lb MEDGEN ([facility] , ) Body height 66 in 66 in MEDGEN ([facility] , ) Pain severity - 1 1 MEDGEN (S t 0-10 verbal numeric [facility], rating [Score] - ) Reported Heart rate 82 /min 82 /min MEDGEN ([facility] , ) Heart rate 82 /min 82 /min MEDGEN ([facility] , ) Respiratory rate 16 /min 16 /min MEDGEN ( [facility] , ) Inhaled oxygen 99 % 99 % MEDGEN ([facility], ) Body mass index 35.7 kg/m2 35.7 kg/m2 MEDGEN (S t (BMI) [Ratio] [facility], ) Diastolic blood 82 mm[Hg] 82 mm[Hg] MEDGEN (S t pressure [facility] , ) Systolic blood 124 mm[Hg] 124 mm[Hg] MEDGEN ([facility] , ) Body weight 221 lb 221 lb MEDGEN ([facility]) Body height 66 in 66 in MEDGEN ([facility]) Pain severity - 1 1 MEDGEN ([facility] 0-10 verbal [facility] [place] - ) Reported Heart rate 82 /min 82 /min MEDGEN ([facility]) Respiratory rate 16 /min 16 /min MEDGEN ( [facility]) Inhaled oxygen 99 % 99 % MEDGEN ([facility], ) Body mass index 36.8 kg/m2 36.8 kg/m2 MEDGEN (S t (BMI) [Ratio] [facility], ) Diastolic blood 82 mm[Hg] 82 mm[Hg] MEDGEN (S [facility]) Systolic blood 128 mm[Hg] 128 mm[Hg] MEDGEN ([facility]) Body weight 228 lb 228 lb MEDGEN ([facility]) Body height 66 in 66 in MEDGEN ([facility]) Heart rate 82 /min 82 /min MEDGEN ([facility]) Respiratory rate 16 /min 16 /min MEDGEN ( [facility]) Inhaled oxygen 99 % 99 % MEDGEN ([facility], ) Body mass index 36.8 kg/m2 36.8 kg/m2 MEDGEN (S t (BMI) [Ratio] [facility], ) Diastolic blood 82 mm[Hg] 82 mm[Hg] MEDGEN (S t pressure [facility]) Systolic blood 128 mm[Hg] 128 mm[Hg] MEDGEN ([facility] , ) Body weight 228 lb 228 lb MEDGEN ([facility]) Body height 66 in 66 in MEDGEN ([facility] , ) Pain severity - 1 1 MEDGEN ( t 0-10 verbal [facility], rating [Score] - ) Reported Heart rate 98 /min 98 /min MEDGEN ([facility] , ) Respiratory rate 16 /min 16 /min MEDGEN ( [facility]) Inhaled oxygen 99 % 99 % MEDGEN ([facility], ) Diastolic blood 82 mm[Hg] 82 mm[Hg] MEDGEN (S t [facility]) Systolic blood 138 mm[Hg] 138 mm[Hg] MEDGEN ([facility] , ) Body height 66 in 66 in MEDGEN ([facility]) Heart rate 98 /min 98 /min MEDGEN ([facility]) Respiratory rate 16 /min 16 /min MEDGEN ( [facility]) Inhaled oxygen 99 % 99 % MEDGEN ([facility], ) Diastolic blood 82 mm[Hg] 82 mm[Hg] MEDGEN (S t [facility] [place] [place] , ) Systolic blood 138 mm[Hg] 138 mm[Hg] MEDGEN ([facility] , ) Body height 66 in 66 in MEDGEN ([facility] , ) Heart rate 82 /min 82 /min MEDGEN ([facility]) Respiratory rate 16 /min 16 /min MEDGEN ( [facility]) Inhaled oxygen 99 % 99 % MEDGEN ([facility], ) Body mass index 38.1 kg/m2 38.1 kg/m2 MEDGEN (S t (BMI) [Ratio] [facility], ) Diastolic blood 84 mm[Hg] 84 mm[Hg] MEDGEN (S t [facility] [place] [place] , ) Systolic blood 124 mm[Hg] 124 mm[Hg] MEDGEN ([facility] , ) Body weight 236 lb 236 lb MEDGEN ([facility]) Body height 66 in 66 in MEDGEN ([facility]) Heart rate 82 /min 82 /min MEDGEN ([facility] , ) Respiratory rate 16 /min 16 /min MEDGEN ( [facility]) Inhaled oxygen 99 % 99 % MEDGEN ([facility], ) Body mass index 38.1 kg/m2 38.1 kg/m2 MEDGEN (S t (BMI) [Ratio] [facility], ) Diastolic blood 84 mm[Hg] 84 mm[Hg] MEDGEN (S t pressure [facility] , ) Systolic blood 124 mm[Hg] 124 mm[Hg] MEDGEN ([facility] , ) Body weight 236 lb 236 lb MEDGEN ([facility]) Body height 66 in 66 in MEDGEN ([facility]) Heart rate 82 /min 82 /min MEDGEN ([facility]) Respiratory rate 16 /min 16 /min MEDGEN ( [facility]) Inhaled oxygen 99 % 99 % MEDGEN ([facility], ) Body mass index 38.1 kg/m2 38.1 kg/m2 MEDGEN (S t (BMI) [Ratio] [facility], ) Diastolic blood 84 mm[Hg] 84 mm[Hg] MEDGEN (S t pressure [facility]) Systolic blood 124 mm[Hg] 124 mm[Hg] MEDGEN ([facility]) Body weight 236 lb 236 lb MEDGEN ([facility]) Body height 66 in 66 in MEDGEN ([facility]) Heart rate 82 /min 82 /min MEDGEN ([facility]) Respiratory rate 16 /min 16 /min MEDGEN ( [facility]) Inhaled oxygen 99 % 99 % MEDGEN ([facility], ) Body mass index 38.1 kg/m2 38.1 kg/m2 MEDGEN (S t (BMI) [Ratio] [facility], ) Diastolic blood 84 mm[Hg] 84 mm[Hg] MEDGEN (S t pressure [facility]) Systolic blood 124 mm[Hg] 124 mm[Hg] MEDGEN ([facility] , ) Body weight 236 lb 236 lb MEDGEN ([facility]) Body height 66 in 66 in MEDGEN ([facility]) Heart rate 94 /min 94 /min MEDGEN ([facility]) Respiratory rate 16 /min 16 /min MEDGEN ( [facility]) Inhaled oxygen 99 % 99 % MEDGEN ([facility], ) Body mass index 36.3 kg/m2 36.3 kg/m2 MEDGEN (S t (BMI) [Ratio] [facility], ) Diastolic blood 84 mm[Hg] 84 mm[Hg] MEDGEN (S [facility]) Systolic blood 120 mm[Hg] 120 mm[Hg] MEDGEN ([facility]) Body weight 225 lb 225 lb MEDGEN ([facility]) Body height 66 in 66 in MEDGEN ([facility]) Heart rate 94 /min 94 /min MEDGEN ([facility]) Respiratory rate 16 /min 16 /min MEDGEN ( [facility]) Inhaled oxygen 99 % 99 % MEDGEN ([facility], ) Body mass index 36.3 kg/m2 36.3 kg/m2 MEDGEN (S t (BMI) [Ratio] [facility], ) Diastolic blood 84 mm[Hg] 84 mm[Hg] MEDGEN (S t [facility]) Systolic blood 120 mm[Hg] 120 mm[Hg] MEDGEN ([facility]) Body weight 225 lb 225 lb MEDGEN ([facility]) Body height 66 in 66 in MEDGEN ([facility]) Respiratory rate 16 /min 16 /min MEDGEN ( [facility]) Inhaled oxygen 97 % 97 % MEDGEN ([facility], ) Body mass index 36.3 kg/m2 36.3 kg/m2 MEDGEN (S t (BMI) [Ratio] [facility], ) Diastolic blood 88 mm[Hg] 88 mm[Hg] MEDGEN (S [facility]) Systolic blood 122 mm[Hg] 122 mm[Hg] MEDGEN ([facility]) Body weight 225 lb 225 lb MEDGEN ([facility]) Body height 66 in 66 in MEDGEN ([facility]) Respiratory rate 16 /min 16 /min MEDGEN ( [facility]) Inhaled oxygen 97 % 97 % MEDGEN ([facility], ) Body mass index 36.3 kg/m2 36.3 kg/m2 MEDGEN (S t (BMI) [Ratio] [facility], ) Diastolic blood 88 mm[Hg] 88 mm[Hg] MEDGEN (S t pressure [facility] , ) Systolic blood 122 mm[Hg] 122 mm[Hg] MEDGEN ([facility]) Body weight 225 lb 225 lb MEDGEN ([facility]) Body height 66 in 66 in MEDGEN ([facility]) Heart rate 77 /min 77 /min MEDGEN ([facility]) Respiratory rate 16 /min 16 /min MEDGEN ( [facility]) Inhaled oxygen 97 % 97 % MEDGEN ([facility], ) Body mass index 36.3 kg/m2 36.3 kg/m2 MEDGEN (S t (BMI) [Ratio] [facility], ) Diastolic blood 72 mm[Hg] 72 mm[Hg] MEDGEN (S t pressure [facility]) Systolic blood 124 mm[Hg] 124 mm[Hg] MEDGEN ([facility]) Body weight 225 lb 225 lb MEDGEN ([facility]) Body height 66 in 66 in MEDGEN ([facility]) Heart rate 77 /min 77 /min MEDGEN ([facility]) Respiratory rate 16 /min 16 /min MEDGEN ( [facility]) Inhaled oxygen 97 % 97 % MEDGEN ([facility], ) Body mass index 36.3 kg/m2 36.3 kg/m2 MEDGEN (S t (BMI) [Ratio] [facility], ) Diastolic blood 72 mm[Hg] 72 mm[Hg] MEDGEN (S t pressure [facility] , ) Systolic blood 124 mm[Hg] 124 mm[Hg] MEDGEN ([facility]) Body weight 225 lb 225 lb MEDGEN ([facility]) Body height 66 in 66 in MEDGEN ([facility]) Heart rate 73 /min 73 /min MEDGEN ([facility]) Respiratory rate 16 /min 16 /min MEDGEN ( [facility]) Inhaled oxygen 96 % 96 % MEDGEN ([facility], ) Body mass index 36 kg/m2 36 kg/m2 MEDGEN (S t (BMI) [Ratio] [facility], ) Diastolic blood 74 mm[Hg] 74 mm[Hg] MEDGEN (S t pressure [facility] , ) Systolic blood 120 mm[Hg] 120 mm[Hg] MEDGEN ([facility]) Body weight 223 lb 223 lb MEDGEN ([facility]) Body height 66 in 66 in MEDGEN ([facility]) Heart rate 73 /min 73 /min MEDGEN ([facility]) Respiratory rate 16 /min 16 /min MEDGEN ( [facility]) Inhaled oxygen 96 % 96 % MEDGEN ([facility], ) Body mass index 36 kg/m2 36 kg/m2 MEDGEN (S t (BMI) [Ratio] [facility], ) Diastolic blood 74 mm[Hg] 74 mm[Hg] MEDGEN (S t pressure [facility]) Systolic blood 120 mm[Hg] 120 mm[Hg] MEDGEN ([facility]) Body weight 223 lb 223 lb MEDGEN ([facility]) Body height 66 in 66 in MEDGEN ([facility]) Heart rate 60 /min 60 /min MEDGEN ([facility]) Respiratory rate 16 /min 16 /min MEDGEN ( [facility]) Body mass index 28.7 kg/m2 28.7 kg/m2 MEDGEN (S t (BMI) [Ratio] [facility], ) Diastolic blood 78 mm[Hg] 78 mm[Hg] MEDGEN (S t pressure [facility]) Systolic blood 118 mm[Hg] 118 mm[Hg] MEDGEN ([facility] , ) Body weight 178 lb 178 lb MEDGEN ([facility]) Body height 66 in 66 in MEDGEN ([facility]) Heart rate 60 /min 60 /min MEDGEN ([facility]) Respiratory rate 16 /min 16 /min MEDGEN ( [facility]) Body mass index 28.7 kg/m2 28.7 kg/m2 MEDGEN (S t (BMI) [Ratio] [facility], ) Diastolic blood 78 mm[Hg] 78 mm[Hg] MEDGEN (S t pressure [facility]) Systolic blood 118 mm[Hg] 118 mm[Hg] MEDGEN ([facility] , ) Body weight 178 lb 178 lb MEDGEN ([facility]) Body height 66 in 66 in MEDGEN ([facility]) Heart rate 60 /min 60 /min MEDGEN ([facility]) Respiratory rate 16 /min 16 /min MEDGEN ( [facility]) Body mass index 28.7 kg/m2 28.7 kg/m2 MEDGEN (S t (BMI) [Ratio] [facility], ) Diastolic blood 70 mm[Hg] 70 mm[Hg] MEDGEN (S t pressure [facility]) Systolic blood 110 mm[Hg] 110 mm[Hg] MEDGEN ([facility]) Body weight 178 lb 178 lb MEDGEN ([facility]) Body height 66 in 66 in MEDGEN ([facility]) Heart rate 60 /min 60 /min MEDGEN ([facility]) Respiratory rate 16 /min 16 /min MEDGEN ( [facility]) Body mass index 28.7 kg/m2 28.7 kg/m2 MEDGEN (S t (BMI) [Ratio] [facility], ) Diastolic blood 70 mm[Hg] 70 mm[Hg] MEDGEN (S t pressure [facility]) Systolic blood 110 mm[Hg] 110 mm[Hg] MEDGEN ([facility] [place] [place] , ) Body weight 178 lb 178 lb MEDGEN ([facility]) Body height 66 in 66 in MEDGEN ([facility]) Body mass index 28.7 kg/m2 28.7 kg/m2 MEDGEN (S t (BMI) [Ratio] [facility], ) Diastolic blood 76 mm[Hg] 76 mm[Hg] MEDGEN (S t pressure [facility]) Systolic blood 130 mm[Hg] 130 mm[Hg] [facility] ([facility]) Body weight 178 lb 178 lb [facility] ([facility]) Body height 66 in 66 in [facility] ([facility]) Body mass index 28.7 kg/m2 28.7 kg/m2 [facility] (S t (BMI) [Ratio] [facility]) Diastolic blood 76 mm[Hg] 76 mm[Hg] [facility] (S t [facility]) Systolic blood 130 mm[Hg] 130 mm[Hg] [facility] ([facility]) Body weight 178 lb 178 lb [facility] ([facility]) Body height 66 in 66 in [facility] ([facility]) Body mass index 29.7 kg/m2 29.7 kg/m2 [facility] (S t (BMI) [Ratio] [facility]) Diastolic blood 82 mm[Hg] 82 mm[Hg] [facility] (S t [facility]) Systolic blood 140 mm[Hg] 140 mm[Hg] [facility] ([facility]) Body weight 184 lb 184 lb [facility] ([facility]) Body height 66 in 66 in [facility] ([facility]) Body mass index 29.7 kg/m2 29.7 kg/m2 [facility] (S t (BMI) [Ratio] [facility]) Diastolic blood 82 mm[Hg] 82 mm[Hg] [facility] (S t [facility]) Systolic blood 140 mm[Hg] 140 mm[Hg] [facility] ([facility]) Body weight 184 lb 184 lb [facility]) Body height 66 in 66 in [facility]) Patient Treatment Plan of Care Planned Activity Planned Date Details Description Data Source (s) Buprenorphine 8 MG / 06/05/2020 [facility]CW3 ([facility] [place] Naloxone 2 MG Oral Strip 12:00:00 AM [facility]) Buprenorphine 8 MG / 06/05/2020 eCW3 ([facility] [place] Naloxone 2 MG Oral Strip 12:00:00 AM [facility]) 0.9% NaCl IV 12/20/2019 [facility] 09:53:44 PM [facility] 0.9% NaCl IV 12/20/2019 [facility] 09:53:44 PM [facility] Buprenorphine 8 MG / eCW3 ([place] N[facility]) Tablet Buprenorphine 8 MG / eCW3 ([facility] [place] [facility]) Tablet Buprenorphine 8 MG / eCW3 ([place] Naloxone 2 [facility]) Tablet quetiapine 100 MG Oral eCW3 ([facility] Tablet [[facility]) PROZAC 20 mg eCW3 ([facility]) Buprenorphine 8 MG / eCW3 ([place] Naloxone 2 [facility] Sublingual [facility]) Tablet
== END 2020-08-12 22:19 | disposition home or self-care (01) ==
LOC: JER 21:00 → JERFT 21:00
DX: R09.81 Nasal congestion (principal); J01.90 Acute sinusitis, unspecified
CPT/HCPCS: 99283-25

== ENCOUNTER 2022-01-16 09:18 | Emergency (ER) | payer OTHER ==
[2022-01-16 09:46] VITALS: BP 144/82; PULSE 56; TEMP 97.9; BMI 27.8
== END 2022-01-16 10:42 | disposition home or self-care (01) ==
LOC: SUPCPDRO 09:18 → FER 09:18
DX: M75.92 Shoulder lesion, unspecified, left shoulder (principal)
CPT/HCPCS: 73030-TC-LT-FY; 99283-25

== ENCOUNTER 2022-05-05 16:59 | Emergency (ER) | payer OTHER ==
[2022-05-05 17:08] VITALS: BP 125/82; PULSE 77; TEMP 98.1; BMI 27.0
[2022-05-05] MEDS ORDERED: ACETAMINOPHEN 325 MG TABLET (FP) PO ONE (17:41)
[2022-05-05] MEDS ORDERED: ACETAMINOPHEN 325 MG TABLET (FP) ONE (18:19)
== END 2022-05-05 19:04 | disposition home or self-care (01) ==
LOC: FER 16:59
DX: S80.11XA Contusion of right lower leg, initial encounter (principal); W22.8XXA Striking against or struck by other objects, initial encounter
CPT/HCPCS: 73562-TC-RT-FY; 73590-TC-RT-FY; 93971-TC; 99284-25

== ENCOUNTER 2023-10-17 08:12 | Emergency (ER) | payer OTHER ==
[2023-10-17 08:26] VITALS: BP 132/53; PULSE 77; RESP 17; TEMP 98.1; BMI 16.9
[2023-10-17] MEDS ORDERED: ACETAMINOPHEN 500 MG TABLET (FP) PO ONE (09:15)
[2023-10-17] MEDS ORDERED: IBUPROFEN 600 MG TABLET (FP) PO ONE ×2 (09:23→09:44)
[2023-10-17] MEDS ORDERED: ACETAMINOPHEN 500 MG TABLET (FP) ONE (09:44)
== END 2023-10-17 11:01 | disposition home or self-care (01) ==
LOC: JERFT 08:12
DX: M25.512 Pain in left shoulder (principal); R20.2 Paresthesia of skin; X50.0XXA Overexertion from strenuous movement or load, initial encounter
CPT/HCPCS: 73030-TC-LT-FY; 99283-25